=== PATIENT | female | born 1965 | race Caucasian/White ===

== ENCOUNTER 2016-09-01 08:04 | Day surgery (SDC) | payer OTHER ==
[2016-08-29 15:55] VITALS: BMI 30.9
[~2016-09-01 08:04] MED LIST: LACTATED RINGERS 1,000 ML IV SCH; LIDOCAINE 1% 20 ML VIAL (10MG/ML) FOR IV START INTRADERMA PRN
[2016-09-01 09:57] VITALS: TEMP 98.6
--- NOTE | 2016-09-01 10:19 | P.GSHP ---
History of Present Illness H&P Date: 09/01/16 Chief Complaint: GI bleed, GERD This a 51-year-old female who presents today for EGD and colonoscopy. She's had issues with GI bleed and GERD. - Constitutional Constitutional: Reports as per HPI Past Medical History Past Medical History: GERD/Reflux, Osteoarthritis (OA) Additional Past Medical History / Comment(s): ARTHRITIS PAIN IN KNEES, HIPS AND SHOULDER., STATES HX OF DIARRHEA AND CONSTIPATION, HEMORRHOIDS. , STATES SHE THREW UP BLOOD A COUPLE WEEKS AGO. History of Any Multi-Drug Resistant Organisms: None Reported Past Surgical History: Appendectomy, Cholecystectomy, Hysterectomy, Joint Replacement, Orthopedic Surgery Additional Past Surgical History / Comment(s): TOTAL LT SHOULDER. Shoulders bilat, Knees bilat., ANKLE SURGERY, EGD , COLONOSCOPY. Past Anesthesia/Blood Transfusion Reactions: No Reported Reaction, Motion Sickness Past Psychological History: Anxiety, Depression Smoking Status: Never smoker Past Alcohol Use History: None Reported Past Drug Use History: None Reported - Past Family History Mother Family Medical History: No Reported History Medications and Allergies Home Medications Medication Instructions Recorded Confirmed Type Cetirizine HCl [Zyrtec] 10 mg PO QAM 04/12/14 09/01/16 History Escitalopram [Lexapro] 20 mg PO QAM 04/12/14 08/29/16 History Ferrous Sulfate [Feosol] 325 mg PO DAILY 02/03/15 08/29/16 History Omeprazole [PriLOSEC] 20 mg PO BID 02/03/15 09/01/16 History Acetaminophen Tab [Tylenol Tab] 325 mg PO DIRECTED PRN 09/01/15 08/29/16 History Ibuprofen [Motrin] 800 mg PO Q8HR PRN 09/01/15 08/29/16 History diphenhydrAMINE [Benadryl] 25 mg PO HS 09/01/15 08/29/16 History Allergy Eye Gtts 1 drop BOTH EYES DIRECTED PRN 08/29/16 09/01/16 History Cyclobenzaprine [Flexeril] 10 mg PO DIRECTED PRN 08/29/16 08/29/16 History Allergies Allergy/AdvReac Type Severity Reaction Status Date / Time codeine Allergy Swelling Verified 08/29/16 15:25 hydrocodone Allergy Swelling Verified 08/29/16 15:25 morphine Allergy Swelling Verified 08/29/16 15:25 Penicillins Allergy Swelling Verified 08/29/16 15:25 Surgical - Exam Vital Signs Temp Pulse Resp BP Pulse Ox 98.6 F 85 16 120/64 92 L 09/01/16 09:56 09/01/16 09:56 09/01/16 09:56 09/01/16 09:56 09/01/16 09:56 - General well developed, well nourished, no distress - Eyes PERRL - ENT normal pinna - Neck no masses - Respiratory normal expansion - Cardiovascular Rhythm: regular - Abdomen Abdomen: soft, non tender Assessment and Plan Plan: GI bleed, GERD. We'll perform EGD and colonoscopy
[2016-09-01] MEDS ORDERED: PROPOFOL 10 MG/ML 20 ML VIAL IV ONE (10:20)
--- NOTE | 2016-09-01 10:43 | P.OP ---
Date of Procedure: 09/01/16 Preoperative Diagnosis: GI bleed GERD Postoperative Diagnosis: Antral gastritis Hiatal hernia Esophagitis Mild diverticular changes Procedure(s) Performed: EGD Colonoscopy Anesthesia: MAC Surgeon: Duong Kumari Pathology: other (Antral, esophagus) Condition: stable Disposition: PACU Description of Procedure: Patient's placed on the endoscopy table in the lateral position. She received IV sedation. The gastroscope some placed oropharynx passed in the esophagus and stomach. The scope was then placed through the pylorus. First and second portion of duodenum appeared normal. Scope was then brought back and the antrum and this appeared mildly inflamed. A biopsy was performed. The scope was unretroflexed and remainder of the stomach appeared normal. The GE junction was at 40 cm. The patient had a moderate size hiatal hernia. The GE junction was examined in the distal esophagus was biopsied. There was evidence of inflammation distal esophagus. The proximal esophagus. Normal. Scope was withdrawn for patient. Next digital rectal exam was performed which revealed no abnormalities. The flexible colonoscope was then placed patient anus passed throughout the entire colon. The ileocecal valve was visualized. Scope was withdrawn remainder the ascending colon, transverse colon and descending colon appeared normal. In the sigmoid colon there a few scattered diverticula. Scope was then brought back the rectum and this appeared normal. Scope was withdrawn for patient.
[2016-09-01 11:17] VITALS: BP 110/60; PULSE 78; RESP 20
== END 2016-09-01 11:35 | disposition home or self-care (01) ==
LOC: ORWHC2ENDO 08:04
PROVIDERS: ATTEND Surgery
DX: K21.0 Gastro-esophageal reflux disease with esophagitis (principal); K29.50 Unspecified chronic gastritis without bleeding; K44.9 Diaphragmatic hernia without obstruction or gangrene; K57.30 Diverticulosis of large intestine without perforation or abscess without bleeding; M17.0 Bilateral primary osteoarthritis of knee; M16.0 Bilateral primary osteoarthritis of hip; M19.019 Primary osteoarthritis, unspecified shoulder; F41.9 Anxiety disorder, unspecified; F32.9 Major depressive disorder, single episode, unspecified; Z88.0 Allergy status to penicillin; Z88.5 Allergy status to narcotic agent; Z79.1 Long term (current) use of non-steroidal anti-inflammatories (NSAID); Z79.899 Other long term (current) drug therapy; Z90.49 Acquired absence of other specified parts of digestive tract; Z90.710 Acquired absence of both cervix and uterus; Z96.60 Presence of unspecified orthopedic joint implant
CPT/HCPCS: 88305; 88342; 45378; 43239; J2704; 99153

== ENCOUNTER → 2016-10-03 | Outpatient (CLI) | payer OTHER ==
--- NOTE | 2016-10-03 13:16 | XR ---
EXAMINATION TYPE: XR chest 2V DATE OF EXAM: 10/03/2016 12:06 PM COMPARISON: Prior chest x-ray 15 Dec 2014 HISTORY: Acute bronchitis, cough and congestion TECHNIQUE: Frontal and lateral views of the chest are obtained. FINDINGS: Post arthroplasty in the left shoulder, postop change in the right shoulder again noted. P atient is rotated. No airspace disease, pneumothorax, or pleural effusion. Cardiomediastinal silhouet te, pulmonary vascularity and anton are stable. Surgical clips in the right upper quadrant. IMPRESSION: No acute cardiopulmonary process.
== END ==
LOC: RADXRMAIN 11:39
PROVIDERS: ATTEND Family Medicine
DX: J20.9 Acute bronchitis, unspecified (principal)
CPT/HCPCS: 71020

== ENCOUNTER → 2017-08-11 | Outpatient (CLI) | payer OTHER ==
--- NOTE | 2017-08-14 11:49 | MM ---
Reason for exam: screening (asymptomatic). Last mammogram was performed 3 years and 8 months ago. History: Patient is postmenopausal and had first child at age 36. Physical Findings: A clinical breast exam by your physician is recommended on an annual basis and results should be correlated with mammographic findings. MG Screening Mammo w CAD Bilateral CC and MLO view(s) were taken. XCCL view(s) were taken of the right breast. Prior study comparison: December 03, 2013, bilateral digital screening mammo w/CAD. October 09, 2012, bilateral digital screening mammo w/CAD. The breast tissue is heterogeneously dense. This may lower the sensitivity of mammography. No suspicious abnormality. No significant changes when compared with prior studies. ASSESSMENT: Negative, BI-RAD 1 RECOMMENDATION: Routine screening mammogram of both breasts in 1 year.
== END | disposition home or self-care (01) ==
LOC: RADMAMWWP 07:31
PROVIDERS: ATTEND Family Medicine
DX: Z12.31 Encounter for screening mammogram for malignant neoplasm of breast (principal)
CPT/HCPCS: 77067

== ENCOUNTER 2018-07-07 21:30 | Emergency (ER) | payer OTHER ==
[2018-07-07 21:43] VITALS: BP 119/69; PULSE 70; RESP 16; TEMP 97.7
--- NOTE | 2018-07-07 22:35 | ED ---
General Adult HPI - General Chief complaint: Burn/Smoke Inhalation Stated complaint: left arm burn x 2 days ago Time Seen by Provider: 07/07/18 21:45 Source: patient Mode of arrival: ambulatory Limitations: no limitations - History of Present Illness Initial comments: 53-year-old female with a past medical history of GERD and osteoarthritis presents to the emergency department for a chief complaint of burn to the left dorsal forearm at 2 days. Patient states she was reaching inside of the oven when she taps arm against the edge of the oven and burned her skin. Patient states it has not been bothering her much but today it did start draining a year yellow drainage so she became concerned for infection. She denies fevers or chills. She denies any significant pain. She denies any other injuries or complaints. - Related Data Home Medications Medication Instructions Recorded Confirmed Cetirizine HCl [Zyrtec] 10 mg PO QAM 04/12/14 09/01/16 Escitalopram [Lexapro] 20 mg PO QAM 04/12/14 08/29/16 Ferrous Sulfate [Feosol] 325 mg PO DAILY 02/03/15 08/29/16 Omeprazole [PriLOSEC] 20 mg PO BID 02/03/15 09/01/16 Acetaminophen Tab [Tylenol Tab] 325 mg PO DIRECTED PRN 09/01/15 08/29/16 Ibuprofen [Motrin] 800 mg PO Q8HR PRN 09/01/15 08/29/16 diphenhydrAMINE [Benadryl] 25 mg PO HS 09/01/15 08/29/16 Allergy Eye Gtts 1 drop BOTH EYES DIRECTED PRN 08/29/16 09/01/16 Cyclobenzaprine [Flexeril] 10 mg PO DIRECTED PRN 08/29/16 08/29/16 Previous Rx's Medication Instructions Recorded Ibuprofen [Motrin] 600 mg PO Q6HR PRN #40 day 06/21/18 Allergies Allergy/AdvReac Type Severity Reaction Status Date / Time codeine Allergy Swelling Verified 07/07/18 21:43 hydrocodone Allergy Swelling Verified 07/07/18 21:43 morphine Allergy Swelling Verified 07/07/18 21:43 Penicillins Allergy Swelling Verified 07/07/18 21:43 Review of Systems ROS Statement: Those systems with pertinent positive or pertinent negative responses have been documented in the HPI. ROS Other: All systems not noted in ROS Statement are negative. Past Medical History Past Medical History: GERD/Reflux, Osteoarthritis (OA) Additional Past Medical History / Comment(s): ARTHRITIS PAIN IN KNEES, HIPS AND SHOULDER. History of Any Multi-Drug Resistant Organisms: None Reported Past Surgical History: Appendectomy, Cholecystectomy, Hysterectomy, Joint Replacement, Orthopedic Surgery Additional Past Surgical History / Comment(s): TOTAL LT SHOULDER. Shoulders bilat, Knees bilat., ANKLE SURGERY, EGD , COLONOSCOPY. Past Anesthesia/Blood Transfusion Reactions: No Reported Reaction, Motion Sickness Past Psychological History: Anxiety, Depression Smoking Status: Never smoker Past Alcohol Use History: None Reported Past Drug Use History: None Reported - Past Family History Mother Family Medical History: No Reported History General Exam Limitations: no limitations General appearance: alert, in no apparent distress Head exam: Present: atraumatic, normocephalic, normal inspection Eye exam: Present: normal appearance, PERRL, EOMI. Absent: scleral icterus, conjunctival injection, periorbital swelling ENT exam: Present: normal exam, mucous membranes moist Neck exam: Present: normal inspection, full ROM. Absent: tenderness, meningismus, lymphadenopathy Respiratory exam: Present: normal lung sounds bilaterally. Absent: respiratory distress, wheezes, rales, rhonchi, stridor Cardiovascular Exam: Present: regular rate, normal rhythm, normal heart sounds. Absent: systolic murmur, diastolic murmur, rubs, gallop, clicks Extremities exam: Present: full ROM (Full range of motion of the left upper extremity including the left hand), tenderness (Minor tenderness to the burn site), normal capillary refill (Capillary refill less than 2 seconds and radial pulse 2+ in the left upper extremity), other (The patient intact in the left upper extremity. There is a 3 cm x 0.5 cm superficial burn noted of the left dorsal mid forearm. No sore running cellulitic infection. Burn is superficial and has affected the dermis.) Course Vital Signs 07/07/18 21:39 Temperature 97.7 F Pulse Rate 70 Respiratory 16 Rate Blood Pressure 119/69 O2 Sat by Pulse 100 Oximetry Medical Decision Making - Medical Decision Making 53-year-old female with a superficial burn to the left dorsal forearm. Patient states it is draining clear fluid. Patient is concerned for infection. She has been applying antibiotic ointment. No cellulitic infection on exam. The burn is about 3 cm x 0.5 cm in size. At this time patient was given bacitracin to continue to apply at least 3 times daily. Tetanus is up-to-date. She will monitor for any signs of spreading infection and return if these occur. She will follow up with primary care on Monday for a recheck. Patient agrees with this. Disposition Clinical Impression: Superficial burn Disposition: HOME SELF-CARE Condition: Good Instructions: Superficial Burn (ED) Additional Instructions: Please apply bacitracin to the area 3 times daily. Please follow up with primary care in 1-2 days. Return to the emergency department if you have any worsening symptoms. Is patient prescribed a controlled substance at d/c from ED?: No Referrals: Brandt Moore DO [Primary Care Provider] - 1-2 days Time of Disposition: 22:30
== END 2018-07-07 22:44 | disposition home or self-care (01) ==
LOC: EC 21:30
DX: T22.212A Burn of second degree of left forearm, initial encounter (principal); T31.0 Burns involving less than 10% of body surface; K21.9 Gastro-esophageal reflux disease without esophagitis; M17.0 Bilateral primary osteoarthritis of knee; M16.0 Bilateral primary osteoarthritis of hip; M19.012 Primary osteoarthritis, left shoulder; M19.011 Primary osteoarthritis, right shoulder; F41.9 Anxiety disorder, unspecified; F32.9 Major depressive disorder, single episode, unspecified; Z96.653 Presence of artificial knee joint, bilateral; Z96.611 Presence of right artificial shoulder joint; Z96.612 Presence of left artificial shoulder joint; Z79.899 Other long term (current) drug therapy; Z88.5 Allergy status to narcotic agent; Z88.0 Allergy status to penicillin; X15.8XXA Contact with other hot household appliances, initial encounter; Y92.009 Unspecified place in unspecified non-institutional (private) residence as the place of occurrence of the external cause
CPT/HCPCS: 99283

== ENCOUNTER 2018-08-24 00:24 | Emergency (ER) | payer OTHER ==
[2018-08-24 00:32] VITALS: BP 111/72; PULSE 66; RESP 17; TEMP 96.9
[2018-08-24] MEDS ORDERED: ACETAMINOPHEN TAB 500 MG TAB PO STA (00:50)
[2018-08-24] MEDS ORDERED: DIPH,PERTUS(ACELL)TETVAC-LF 0.5 ML VIAL IM ONE (00:50)
[2018-08-24] MEDS ORDERED: DOXYCYCLINE 100 MG CAP PO STA (00:52)
--- NOTE | 2018-08-24 00:55 | ED ---
Animal Bite HPI - General Chief Complaint: Animal Bite Stated Complaint: Cat Bite Time Seen by Provider: 08/24/18 00:37 Source: patient Mode of arrival: ambulatory Limitations: no limitations - History of Present Illness Initial Comments: 53-year-old female patient presents to the emergency department today for evaluation of Right. Patient states around 2230 this evening she was attempting to brush her Give it medication when it became agitated and bit her on the left thumb and the right wrist. Patient states that she did wash the wounds with antibacterial soap and water. Patient states she did take ibuprofen for pain control. Patient is reporting only mild pain at this time. Denies any difficulty with range of motion to the hand or wrist. Denies any fevers or chills. She denies any other injuries. She is unsure when her last tetanus vaccine was given. Patient denies any headache, neck pain, back pain, chest pain, shortness of breath, dizziness, weakness, abdominal pain, nausea, vomiting, or difficulties with bowel movements or urination. - Related Data Home Medications Medication Instructions Recorded Confirmed Cetirizine HCl [Zyrtec] 10 mg PO QAM 04/12/14 09/01/16 Escitalopram [Lexapro] 20 mg PO QAM 04/12/14 08/29/16 Ferrous Sulfate [Feosol] 325 mg PO DAILY 02/03/15 08/29/16 Omeprazole [PriLOSEC] 20 mg PO BID 02/03/15 09/01/16 Acetaminophen Tab [Tylenol Tab] 325 mg PO DIRECTED PRN 09/01/15 08/29/16 Ibuprofen [Motrin] 800 mg PO Q8HR PRN 09/01/15 08/29/16 diphenhydrAMINE [Benadryl] 25 mg PO HS 09/01/15 08/29/16 Allergy Eye Gtts 1 drop BOTH EYES DIRECTED PRN 08/29/16 09/01/16 Cyclobenzaprine [Flexeril] 10 mg PO DIRECTED PRN 08/29/16 08/29/16 Previous Rx's Medication Instructions Recorded Ibuprofen [Motrin] 600 mg PO Q6HR PRN #40 day 06/21/18 Doxycycline Hyclate 100 mg PO BID 7 Days #14 tab 08/24/18 Allergies Allergy/AdvReac Type Severity Reaction Status Date / Time codeine Allergy Swelling Verified 08/24/18 00:32 hydrocodone Allergy Swelling Verified 08/24/18 00:32 morphine Allergy Swelling Verified 08/24/18 00:32 Penicillins Allergy Swelling Verified 08/24/18 00:32 Review of Systems ROS Statement: Those systems with pertinent positive or pertinent negative responses have been documented in the HPI. ROS Other: All systems not noted in ROS Statement are negative. Past Medical History Past Medical History: GERD/Reflux, Osteoarthritis (OA) Additional Past Medical History / Comment(s): ARTHRITIS PAIN IN KNEES, HIPS AND SHOULDER. History of Any Multi-Drug Resistant Organisms: None Reported Past Surgical History: Appendectomy, Cholecystectomy, Hysterectomy, Joint Replacement, Orthopedic Surgery Additional Past Surgical History / Comment(s): TOTAL LT SHOULDER. Shoulders bilat, Knees bilat., ANKLE SURGERY, EGD , COLONOSCOPY. Past Anesthesia/Blood Transfusion Reactions: No Reported Reaction, Motion Sickness Past Psychological History: Anxiety, Depression Smoking Status: Never smoker Past Alcohol Use History: None Reported Past Drug Use History: None Reported - Past Family History Mother Family Medical History: No Reported History General Exam Limitations: no limitations General appearance: alert, in no apparent distress, other (This is a well- developed, well-nourished adult female patient in no acute distress. Vital signs upon presentation are temperature 96.9F, pulse 66, respirations 17, blood pressure 111/72, pulse ox 98% on room air.) Respiratory exam: Present: normal lung sounds bilaterally. Absent: respiratory distress, wheezes, rales, rhonchi, stridor Cardiovascular Exam: Present: regular rate, normal rhythm, normal heart sounds. Absent: systolic murmur, diastolic murmur, rubs, gallop, clicks Extremities exam: Present: full ROM (Bilateral hands and wrists exhibit full range of motion without pain or limitation.), normal capillary refill, other ( Patient has puncture wound noted to the left thenar eminence. There is a small superficial laceration to the right wrist. There is no surrounding erythema or swelling. No tenderness to the area. No evidence of foreign body. Skin is otherwise pink, warm, and dry. Cap refills less than 3 seconds. Radial pulses 2+ and equal bilaterally.). Absent: normal inspection, tenderness, pedal edema , joint swelling, calf tenderness Neurological exam: Present: alert, oriented X3, CN II-XII intact Psychiatric exam: Present: normal affect, normal mood Skin exam: Present: warm, dry, intact, normal color. Absent: rash Course Vital Signs 08/24/18 00:28 Temperature 96.9 F L Pulse Rate 66 Respiratory 17 Rate Blood Pressure 111/72 O2 Sat by Pulse 98 Oximetry Medical Decision Making - Medical Decision Making 53-year-old female patient presents to the emergency department today for evaluation after sustaining a Bite to her left thumb and right wrist. Physical examination did reveal small puncture wound to the left thenar eminence and a small superficial laceration to the right wrist. There is no evidence of cellulitis or foreign body. Patient was updated on tetanus vaccine. She is started on doxycycline. She is instructed to follow-up with her primary care physician for recheck in 1-2 days. Did educate regarding signs or symptoms of worsening infection. Return parameters discussed in detail. She verbalizes understanding and agrees with this plan. Disposition Clinical Impression: Cat bite involving extremity Disposition: HOME SELF-CARE Instructions: Animal Bite (ED) Additional Instructions: Complete antibiotic prescription in full. Take Tylenol and Motrin for pain control. Follow-up with your primary care physician for recheck in 1-2 days. Return immediately for any increase in swelling, redness, fever, or chills. Return immediately for any other new, worsening, or concerning symptoms. Prescriptions: Doxycycline Hyclate 100 mg PO BID 7 Days #14 tab Is patient prescribed a controlled substance at d/c from ED?: No Referrals: Brandt Moore DO [Primary Care Provider] - 1-2 days Time of Disposition: 00:55
== END 2018-08-24 01:11 | disposition home or self-care (01) ==
LOC: EC 00:24
DX: S61.032A Puncture wound without foreign body of left thumb without damage to nail, initial encounter (principal); S61.511A Laceration without foreign body of right wrist, initial encounter; K21.9 Gastro-esophageal reflux disease without esophagitis; M19.90 Unspecified osteoarthritis, unspecified site; F32.9 Major depressive disorder, single episode, unspecified; F41.9 Anxiety disorder, unspecified; Z23 Encounter for immunization; Z79.899 Other long term (current) drug therapy; Z88.0 Allergy status to penicillin; Z88.5 Allergy status to narcotic agent; Z96.653 Presence of artificial knee joint, bilateral; Z96.611 Presence of right artificial shoulder joint; Z96.612 Presence of left artificial shoulder joint; W55.01XA Bitten by cat, initial encounter
CPT/HCPCS: 90471; 90715; 99283

== ENCOUNTER → 2019-03-20 | Outpatient (CLI) | payer OTHER ==
--- NOTE | 2019-03-20 15:24 | XR ---
EXAMINATION TYPE: XR clavicle LT DATE OF EXAM: 03/20/2019 COMPARISON: NONE HISTORY: Pain TECHNIQUE: 2 views submitted FINDINGS: Postsurgical change left shoulder. Clavicle appears intact. IMPRESSION: No acute fracture.
--- NOTE | 2019-03-20 15:25 | XR ---
EXAMINATION TYPE: XR knee complete LT DATE OF EXAM: 03/20/2019 COMPARISON: NONE HISTORY: Pain TECHNIQUE: Four views are submitted. FINDINGS: Mild narrowing of the medial compartment of the knee joint. Mild diffuse osteopenia. There is a small suprapatellar bursal fluid collection. No erosive changes.. Osseous structures are intact. No acut e fracture seen. IMPRESSION: 1. No acute fracture or dislocation. Small suprapatellar bursal fluid collection.
--- NOTE | 2019-03-20 15:27 | XR ---
EXAMINATION TYPE: XR shoulder complete LT DATE OF EXAM: 03/20/2019 COMPARISON: NONE HISTORY: Pain TECHNIQUE: Three views are submitted. FINDINGS: The osseous structures are intact. There is no acute fracture or dislocation. Widening of the AC yazmin nt may be postsurgical or related to chronic reabsorption. Postsurgical changes noted. . IMPRESSION: 1. No acute process. 2. Postsurgical changes.
--- NOTE | 2019-03-20 15:28 | XR ---
EXAMINATION TYPE: XR hand complete RT DATE OF EXAM: 03/20/2019 COMPARISON: NONE HISTORY: Pain TECHNIQUE: Three views are submitted. FINDINGS: The osseous structures are intact. The joint spaces are preserved and there is no acute fracture or dislocation. Mild diffuse osteopenia. Chronic appearing deformity base fifth metacarpal. IMPRESSION: 1. No definite acute fracture or dislocation if symptoms persist, follow-up study in 7 to 10 days wo uld be suggested
--- NOTE | 2019-03-20 15:29 | XR ---
EXAMINATION TYPE: XR wrist complete RT DATE OF EXAM: 03/20/2019 COMPARISON: 02/24/2014 HISTORY: Pain TECHNIQUE: Four views submitted. FINDINGS: The osseous structures are intact. The joint spaces are preserved and there is no acute fracture or dislocation. Chronic appearing deformity base fifth metacarpal. Unchanged from prior exam. IMPRESSION: 1. No definite acute fracture or dislocation if symptoms persist, follow-up study in 7 to 10 days wo uld be suggested
== END | disposition home or self-care (01) ==
LOC: RADXRMAIN 14:36
PROVIDERS: ATTEND Family Medicine
DX: M25.512 Pain in left shoulder (principal); M25.562 Pain in left knee; M25.531 Pain in right wrist; M79.641 Pain in right hand

== ENCOUNTER 2019-05-08 19:19 | Emergency (ER) | payer OTHER ==
[2019-05-08 19:34] VITALS: BP 110/69; PULSE 76; RESP 18; TEMP 97.6
[2019-05-08] MEDS ORDERED: SODIUM CHLORIDE 0.9% 1,000 ML IV STA (20:27)
[2019-05-08] MEDS ORDERED: ONDANSETRON 4 MG/2 ML VIAL IVP STA (20:27)
--- NOTE | 2019-05-08 20:33 | ED ---
Abdominal Pain HPI - General Chief Complaint: Abdominal Pain Stated Complaint: abdominal pain/headaches Time Seen by Provider: 05/08/19 19:49 Source: patient Mode of arrival: ambulatory Limitations: no limitations - History of Present Illness Initial Comments: Patient is a 53-year-old female presenting to the emergency department with chief complaint of abdominal pain. Patient reports she developed right lower quadrant abdominal pain suddenly yesterday. Patient reports the pain is sharp, and comes and goes. Patient rates pain a 6-7. Patient states the pain is not related to oral intake. Patient reports nausea with one episode of vomiting but no diarrhea or constipation. Patient does report a sudden onset of fevers and chills yesterday prior to her episode of emesis. Patient does report increased urgency frequency or dysuria. Patient denies hematuria, hematochezia or melena. - Related Data Home Medications Medication Instructions Recorded Confirmed Escitalopram [Lexapro] 20 mg PO QAM 04/12/14 05/08/19 Omeprazole [PriLOSEC] 20 mg PO BID 02/03/15 05/08/19 diphenhydrAMINE [Benadryl] 25 mg PO HS 09/01/15 05/08/19 Loratadine [Claritin] 10 mg PO DAILY 05/08/19 05/08/19 Multivitamins, Thera [Multivitamin 1 tab PO DAILY 05/08/19 05/08/19 (formulary)] Previous Rx's Medication Instructions Recorded Cephalexin [Keflex] 500 mg PO Q6HR 3 Days #12 cap 05/08/19 Allergies Allergy/AdvReac Type Severity Reaction Status Date / Time amoxicillin Allergy Swelling Verified 05/08/19 20:46 clonazepam [From Klonopin] Allergy Swelling Verified 05/08/19 20:46 codeine Allergy Rash/Hives Verified 05/08/19 20:46 hydrocodone Allergy Anaphylaxis Verified 05/08/19 20:46 imipramine Allergy Rash/Hives Verified 05/08/19 20:46 morphine Allergy Swelling Verified 05/08/19 20:46 ondansetron [From Zofran] Allergy Itching Verified 05/08/19 20:46 Penicillins Allergy Anaphylaxis Verified 05/08/19 20:46 sulfamethoxazole Allergy Swelling Verified 05/08/19 20:46 [From Bactrim] tramadol Allergy Itching Verified 10/02/19 20:46 trimethoprim [From Bactrim] Allergy Swelling Verified 05/08/19 20:46 Review of Systems ROS Statement: Those systems with pertinent positive or pertinent negative responses have been documented in the HPI. ROS Other: All systems not noted in ROS Statement are negative. Past Medical History Past Medical History: GERD/Reflux, Osteoarthritis (OA) Additional Past Medical History / Comment(s): ARTHRITIS PAIN IN KNEES, HIPS AND SHOULDER. History of Any Multi-Drug Resistant Organisms: None Reported Past Surgical History: Appendectomy, Cholecystectomy, Hysterectomy, Joint Replacement, Orthopedic Surgery Additional Past Surgical History / Comment(s): TOTAL LT SHOULDER. Shoulders bilat, Knees bilat., ANKLE SURGERY, EGD , COLONOSCOPY. Past Anesthesia/Blood Transfusion Reactions: No Reported Reaction, Motion Sickness Past Psychological History: Anxiety, Depression Smoking Status: Never smoker Past Alcohol Use History: None Reported Past Drug Use History: None Reported - Past Family History Mother Family Medical History: No Reported History General Exam Limitations: no limitations General appearance: alert, in no apparent distress Head exam: Present: atraumatic, normocephalic, normal inspection Eye exam: Present: normal appearance Pupils: Present: normal accommodation ENT exam: Present: normal exam, mucous membranes moist, normal external ear exam Neck exam: Present: normal inspection, full ROM Respiratory exam: Present: normal lung sounds bilaterally Cardiovascular Exam: Present: regular rate, normal rhythm, normal heart sounds GI/Abdominal exam: Present: soft, tenderness (Right lower quadrant. McBurney point tenderness. Negative Rovsing, negative obturator, negative psoas. Mild right suprapubic tenderness), normal bowel sounds. Absent: distended, guarding, rebound, mass Extremities exam: Present: normal inspection, full ROM, normal capillary refill Back exam: Present: normal inspection, full ROM. Absent: tenderness Neurological exam: Present: alert, oriented X3 Psychiatric exam: Present: normal affect, normal mood Skin exam: Present: warm, intact, normal color Course Vital Signs 05/08/19 19:30 Temperature 97.6 F Pulse Rate 76 Respiratory 18 Rate Blood Pressure 110/69 O2 Sat by Pulse 100 Oximetry Medical Decision Making - Medical Decision Making Patient is a 53-year-old female presenting to the emergency department with chief complaint of abdominal pain. Patient has had a sudden onset of right lower quadrant abdominal pain that does not radiate anywhere. Patient has had nausea with one episode of vomiting. Patient is also having urinary symptoms. Labs are unremarkable. UA is showing elevated white blood cells and leukocyte esterase. Considering the patient is symptomatically for UTI, I'm going to treat accordingly. CT imaging is not warranted at this time. Patient does not have a gallbladder, appendix or uterus. Patient also does have mild suprapubic tenderness on physical examination. Patient will be treated with Keflex and discharged. Strict return parameters were thoroughly discussed with patient was understanding and agreeable. Case discussed physician. - Lab Data Result diagrams: 05/08/19 21:03 05/08/19 21:03 Lab Results 05/08/19 05/08/19 05/08/19 Range/Units 20:50 21:03 21:03 WBC 7.1 (3.8-10.6) k/uL RBC 4.25 (3.80-5.40) m/uL Hgb 12.9 (11.4-16.0) gm/dL Hct 40.0 (34.0-46.0) % MCV 94.2 (80.0-100.0) fL MCH 30.4 (25.0-35.0) pg MCHC 32.3 (31.0-37.0) g/dL RDW 13.3 (11.5-15.5) % Plt Count 213 (150-450) k/uL Neutrophils % 51 % Lymphocytes % 37 % Monocytes % 7 % Eosinophils % 1 % Basophils % 1 % Neutrophils # 3.6 (1.3-7.7) k/uL Lymphocytes # 2.6 (1.0-4.8) k/uL Monocytes # 0.5 (0-1.0) k/uL Eosinophils # 0.1 (0-0.7) k/uL Basophils # 0.1 (0-0.2) k/uL Sodium 138 (137-145) mmol/L Potassium 4.0 (3.5-5.1) mmol/L Chloride 101 (98-107) mmol/L Carbon Dioxide 30 (22-30) mmol/L Anion Gap 7 mmol/L BUN 11 (7-17) mg/dL Creatinine 0.64 (0.52-1.04) mg/dL Est GFR (CKD-EPI)AfAm >90 (>60 ml/min/1.73 sqM) Est GFR (CKD-EPI)NonAf >90 (>60 ml/min/1.73 sqM) Glucose 99 (74-99) mg/dL Calcium 9.3 (8.4-10.2) mg/dL Total Bilirubin 0.2 (0.2-1.3) mg/dL AST 28 (14-36) U/L ALT 22 (9-52) U/L Alkaline Phosphatase 71 (38-126) U/L Total Protein 7.2 (6.3-8.2) g/dL Albumin 4.2 (3.5-5.0) g/dL Amylase 49 (30-110) U/L Lipase 89 (23-300) U/L Urine Color Light Yellow Urine Appearance Clear (Clear) Urine pH 7.0 (5.0-8.0) Ur Specific Venus 1.006 (1.001-1.035) Urine Protein Negative (Negative) Urine Glucose (UA) Negative (Negative) Urine Ketones Negative (Negative) Urine Blood Negative (Negative) Urine Nitrite Negative (Negative) Urine Bilirubin Negative (Negative) Urine Urobilinogen <2.0 (<2.0) mg/dL Ur Leukocyte Esterase Large H (Negative) Urine RBC 2 (0-5) /hpf Urine WBC 48 H (0-5) /hpf Ur Squamous Epith Cells 2 (0-4) /hpf Amorphous Sediment Rare H (None) /hpf Urine Bacteria Rare H (None) /hpf Disposition Clinical Impression: Abdominal pain Disposition: HOME SELF-CARE Condition: Stable Instructions (If sedation given, give patient instructions): Abdominal Pain (ED) Additional Instructions: Please see prescribe medication as directed. Please return to emergency department if symptoms worsen. Prescriptions: Cephalexin [Keflex] 500 mg PO Q6HR 3 Days #12 cap Is patient prescribed a controlled substance at d/c from ED?: No Referrals: Brandt Moore DO [Primary Care Provider] - 1-2 days Time of Disposition: 21:57
[2019-05-08 21:17] LABS: Amorphous Sediment,Urine Rare /hpf; Appearance,Urine Clear (Clear); Bacteria,Urine Rare /hpf; Bilirubin,Urine Negative (Negative); Blood,Urine Negative (Negative); Color,Urine Light Yellow; Glucose,Urine (UA) Negative (Negative); Ketones,Urine Negative (Negative); Leukocyte Esterase,Urine Large (Negative); Nitrite,Urine Negative (Negative); Protein,Urine Negative (Negative); RBC,Urine 2 /hpf (0-5); Specific Gravity,Urine 1.006 (1.001-1.035); Squamous Epithelial Cell,Urine 2 /hpf (0-4); Urobilinogen,Urine <2.0 mg/dL (<2.0); WBC,Urine 48 /hpf (0-5)
[2019-05-08 21:18] LABS: Basophils # (A) 0.1 k/uL (0-0.2); Basophils % (A) 1 %; Eosinophils # (A) 0.1 k/uL (0-0.7); Eosinophils % (A) 1 %; HGB 12.9 gm/dL (11.4-16.0); Lymphocytes # (A) 2.6 k/uL (1.0-4.8); Lymphocytes % (A) 37 %; MCH 30.4 pg (25.0-35.0); MCHC 32.3 g/dL (31.0-37.0); MCV 94.2 fL (80.0-100.0); Mean Platelet Volume 6.6; Monocytes # (A) 0.5 k/uL (0-1.0); Monocytes % (A) 7 %; Neutrophils # (A) 3.6 k/uL (1.3-7.7); Neutrophils % (A) 51 %; Platelet Count 213 k/uL (150-450); RBC 4.25 m/uL (3.80-5.40); RDW 13.3 % (11.5-15.5); WBC 7.1 k/uL (3.8-10.6)
[2019-05-08 21:25] LABS: ALT 22 U/L (9-52); AST 28 U/L (14-36); African American GFR (CKD) >90 (>60 ml/min/1.73 sqM); Albumin 4.2 g/dL (3.5-5.0); Alkaline Phosphatase 71 U/L (38-126); Amylase 49 U/L (30-110); Anion Gap 7 mmol/L; Blood Urea Nitrogen 11 mg/dL (7-17); Calcium 9.3 mg/dL (8.4-10.2); Carbon Dioxide 30 mmol/L (22-30); Chloride 101 mmol/L (98-107); Glucose 99 mg/dL (74-99); Sodium 138 mmol/L (137-145); Total Bilirubin 0.2 mg/dL (0.2-1.3); Total Protein 7.2 g/dL (6.3-8.2)
[2019-05-08] MEDS ORDERED: CEPHALEXIN 500MG STARTER PACK 4 CAP BTL PO STA (21:58)
== END 2019-05-08 22:50 | disposition home or self-care (01) ==
LOC: EC 19:19
DX: N39.0 Urinary tract infection, site not specified (principal); R11.2 Nausea with vomiting, unspecified; K21.9 Gastro-esophageal reflux disease without esophagitis; M17.0 Bilateral primary osteoarthritis of knee; M16.0 Bilateral primary osteoarthritis of hip; M19.011 Primary osteoarthritis, right shoulder; M19.012 Primary osteoarthritis, left shoulder; Z88.0 Allergy status to penicillin; Z88.2 Allergy status to sulfonamides; Z88.5 Allergy status to narcotic agent; Z88.8 Allergy status to other drugs, medicaments and biological substances; Z79.899 Other long term (current) drug therapy; Z90.49 Acquired absence of other specified parts of digestive tract; Z90.710 Acquired absence of both cervix and uterus; Z96.611 Presence of right artificial shoulder joint; Z96.612 Presence of left artificial shoulder joint; Z96.653 Presence of artificial knee joint, bilateral
CPT/HCPCS: 36415; 80053; 82150; 83690; 85025; 81001; 99284; 96374; 96361 ×2; J2405

== ENCOUNTER 2019-05-18 08:17 | Emergency (ER) | payer OTHER ==
[2019-05-18 08:24] VITALS: RESP 18; TEMP 98.5
--- NOTE | 2019-05-18 09:01 | ED ---
Fall HPI - General Chief Complaint: Fall Stated Complaint: Fall Time Seen by Provider: 05/18/19 08:41 Source: patient Mode of arrival: ambulatory - History of Present Illness Initial Comments: This is a 53-year-old female who states she tripped over her shoelaces this morning at about 6:30 AM she fell forward onto a wooden floor. She complains of bilateral shoulder pain especially on the right extending down to the right axilla. Medial left knee pain. She was able ambulate but states she does have pain in all these areas mentioned. No prior injury did the left knee or to either shoulder. No head neck or back pain no other modifying factors at this time she denies any wrist pain or hand pain. MD Complaint: fall - Related Data Home Medications Medication Instructions Recorded Confirmed Escitalopram [Lexapro] 20 mg PO DAILY 04/12/14 05/18/19 Omeprazole [PriLOSEC] 20 mg PO BID 02/03/15 05/18/19 diphenhydrAMINE [Benadryl] 25 mg PO HS 09/01/15 05/18/19 Loratadine [Claritin] 10 mg PO DAILY 05/08/19 05/18/19 Multivitamins, Thera [Multivitamin 1 tab PO DAILY 05/08/19 05/18/19 (formulary)] Previous Rx's Medication Instructions Recorded Ibuprofen [Motrin] 600 mg PO Q6HR PRN #20 tab 05/18/19 Allergies Allergy/AdvReac Type Severity Reaction Status Date / Time amoxicillin Allergy Swelling Verified 05/18/19 08:40 clonazepam [From Klonopin] Allergy Swelling Verified 05/18/19 08:40 codeine Allergy Rash/Hives Verified 05/18/19 08:40 hydrocodone Allergy Anaphylaxis Verified 05/18/19 08:40 imipramine Allergy Rash/Hives Verified 05/18/19 08:40 morphine Allergy Swelling Verified 05/18/19 08:40 ondansetron [From Zofran] Allergy Itching Verified 05/18/19 08:40 Penicillins Allergy Anaphylaxis Verified 05/18/19 08:40 sulfamethoxazole Allergy Swelling Verified 05/18/19 08:40 [From Bactrim] tramadol Allergy Itching Verified 05/18/19 08:40 trimethoprim [From Bactrim] Allergy Swelling Verified 05/18/19 08:40 Review of Systems ROS Statement: Those systems with pertinent positive or pertinent negative responses have been documented in the HPI. ROS Other: All systems not noted in ROS Statement are negative. Past Medical History Past Medical History: GERD/Reflux, Osteoarthritis (OA) Additional Past Medical History / Comment(s): ARTHRITIS PAIN IN KNEES, HIPS AND SHOULDER. History of Any Multi-Drug Resistant Organisms: None Reported Past Surgical History: Appendectomy, Cholecystectomy, Hysterectomy, Joint Replacement, Orthopedic Surgery Additional Past Surgical History / Comment(s): TOTAL LT SHOULDER. Shoulders bilat, Knees bilat., ANKLE SURGERY, EGD , COLONOSCOPY. Past Anesthesia/Blood Transfusion Reactions: No Reported Reaction, Motion Sickness Past Psychological History: Anxiety, Depression Smoking Status: Never smoker Past Alcohol Use History: None Reported Past Drug Use History: None Reported - Past Family History Mother Family Medical History: No Reported History General Exam - General Exam Comments Initial Comments: This is a well-developed well-nourished awake alert oriented 3 female who does demonstrate a Amigo Coma Scale of 15 Limitations: no limitations General appearance: alert, in no apparent distress Head exam: Present: atraumatic, normocephalic, normal inspection Eye exam: Present: normal appearance, PERRL, EOMI. Absent: scleral icterus, conjunctival injection, periorbital swelling ENT exam: Present: normal exam, mucous membranes moist Neck exam: Present: normal inspection, full ROM, other (No stridor JVD or bruits). Absent: tenderness, meningismus, lymphadenopathy Respiratory exam: Present: normal lung sounds bilaterally. Absent: respiratory distress, wheezes, rales, rhonchi, stridor Cardiovascular Exam: Present: regular rate, normal rhythm, normal heart sounds. Absent: systolic murmur, diastolic murmur, rubs, gallop, clicks GI/Abdominal exam: Present: soft, normal bowel sounds. Absent: distended, tenderness, guarding, rebound, rigid Extremities exam: Present: normal inspection, full ROM, tenderness, normal capillary refill, other (Tennis palpation over both anterior shoulders no definite step-off or crepitation there is some axillary tenderness palpation of the right distal no sensorimotor or vascular deficits are is tenderness palpation of the medial left knee with palpation patient does seem to be able extend and flex the knee however. No other injury noted.). Absent: pedal edema, joint swelling, calf tenderness Back exam: Present: normal inspection Neurological exam: Present: alert, oriented X3, CN II-XII intact Psychiatric exam: Present: normal affect, normal mood Skin exam: Present: warm, dry, intact, normal color. Absent: rash Course Vital Signs 05/18/19 08:19 Temperature 98.5 F Pulse Rate 82 Respiratory 18 Rate Blood Pressure 105/67 O2 Sat by Pulse 99 Oximetry Medical Decision Making - Medical Decision Making I did discuss findings with the patient she will be discharged she'll be placed on nonsteroidal anti-inflammatories - Radiology Data Radiology results: report reviewed (I did review the imaging and reports no evidence of acute findings. Old surgical changes noted), image reviewed Disposition Clinical Impression: Fall, Strain of shoulder, right, Strain of shoulder, left, Contusion of left knee Disposition: HOME SELF-CARE Condition: Good Instructions (If sedation given, give patient instructions): Fall Prevention (ED), Rotator Cuff Injury (ED), Contusion in Adults (ED) Additional Instructions: Medication prescription sent here preferred [facility] pharmacy Prescriptions: Ibuprofen [Motrin] 600 mg PO Q6HR PRN #20 tab PRN Reason: Pain Is patient prescribed a controlled substance at d/c from ED?: No Referrals: Brandt Moore DO [Primary Care Provider] - 1-2 days
--- NOTE | 2019-05-18 09:19 | XR ---
EXAMINATION TYPE: XR shoulder complete BILAT , 6 VIEWS DATE OF EXAM ORDERED: 05/18/2019 HISTORY: Fall with bilateral shoulder pain. COMPARISON: Previous left shoulder dated 03/20/2019. FINDINGS: A left shoulder arthroplasties in place. Prosthetic elements appear in good position. There is been a rotator cuff repair on the right. No fracture or dislocation is seen. There appears t o have been a previous Colin procedure on the right. IMPRESSION: 1. NO ACUTE OSSEOUS LESION. 2. POSTSURGICAL CHANGE ON THE LEFT AND RIGHT.
--- NOTE | 2019-05-18 09:21 | XR ---
EXAMINATION TYPE: XR knee complete LT , 3 VIEWS DATE OF EXAM ORDERED: 05/18/2019 HISTORY: Fall with pain. COMPARISON: Previous study dated 03/20/2019. FINDINGS: Joint spaces are reasonably well-maintained. There is mild peaking of intercondylar spines . There is some swelling in the suprapatellar region making exclusion of small joint effusion difficu lt. IMPRESSION: 1. NO ACUTE OSSEOUS LESION. 2. EARLIEST CHANGES OF OSTEOARTHRITIS. 3. I COULD NOT EXCLUDE A SMALL, JOINT EFFUSION.
[2019-05-18 09:56] VITALS: BP 107/64; PULSE 87
== END 2019-05-18 09:55 | disposition home or self-care (01) ==
LOC: EC 08:17
DX: S46.912A Strain of unspecified muscle, fascia and tendon at shoulder and upper arm level, left arm, initial encounter (principal); S46.911A Strain of unspecified muscle, fascia and tendon at shoulder and upper arm level, right arm, initial encounter; S80.02XA Contusion of left knee, initial encounter; M17.0 Bilateral primary osteoarthritis of knee; M16.0 Bilateral primary osteoarthritis of hip; M19.012 Primary osteoarthritis, left shoulder; K21.9 Gastro-esophageal reflux disease without esophagitis; F32.9 Major depressive disorder, single episode, unspecified; F41.9 Anxiety disorder, unspecified; Z88.0 Allergy status to penicillin; Z88.2 Allergy status to sulfonamides; Z88.5 Allergy status to narcotic agent; Z88.8 Allergy status to other drugs, medicaments and biological substances; Z79.899 Other long term (current) drug therapy; Z96.612 Presence of left artificial shoulder joint; Z96.653 Presence of artificial knee joint, bilateral; Z98.890 Other specified postprocedural states; W01.0XXA Fall on same level from slipping, tripping and stumbling without subsequent striking against object, initial encounter; Y92.69 Other specified industrial and construction area as the place of occurrence of the external cause
CPT/HCPCS: 99283

== ENCOUNTER → 2019-06-17 | Outpatient (CLI) | payer OTHER ==
--- NOTE | 2019-06-17 15:39 | XR ---
EXAMINATION TYPE: XR chest 2V DATE OF EXAM: 06/17/2019 COMPARISON: Prior chest x-ray 10/03/2016 HISTORY: Bronchitis TECHNIQUE: Frontal and lateral views of the chest are obtained. FINDINGS: There is no focal air space opacity, pleural effusion, or pneumothorax seen. There is some bronchial wall thickening. The cardiac silhouette size is within normal limits. The osseous struct ures are intact, patient is post left shoulder arthroplasty. IMPRESSION: Correlate for bronchitis, follow-up as indicated.
== END | disposition home or self-care (01) ==
LOC: RADXRMAIN 15:16
PROVIDERS: ATTEND Family Medicine
DX: J40 Bronchitis, not specified as acute or chronic (principal)
CPT/HCPCS: 71046

== ENCOUNTER 2019-07-08 19:35 | Emergency (ER) | payer OTHER ==
[2019-07-08 19:53] VITALS: BP 110/72; PULSE 66; RESP 18; TEMP 98.1
[2019-07-08] MEDS ORDERED: IBUPROFEN 600 MG STARTER PACK 4 TAB BTL PO STA (20:07)
--- NOTE | 2019-07-08 20:36 | XR ---
EXAMINATION TYPE: XR shoulder complete RT DATE OF EXAM: 07/08/2019 CLINICAL HISTORY: Right shoulder pain after injury TECHNIQUE: Three views of the right shoulder are obtained. COMPARISON: None. FINDINGS: There is no acute fracture/dislocation evident in the right shoulder. The acromioclavicul ar and glenohumeral joint spaces appear aligned. Mild acromioclavicular arthropathy and postsurgical changes of the rotator cuff. The visualized ribs are intact and unremarkable. IMPRESSION: There is no acute fracture or dislocation in the right shoulder.
--- NOTE | 2019-07-08 20:44 | ED ---
Upper Extremity HPI - General Chief Complaint: Extremity Injury, Upper Stated Complaint: Shoulder pain Time Seen by Provider: 07/08/19 20:00 Source: patient Mode of arrival: ambulatory - History of Present Illness Initial Comments: 54-year-old female patient presents to the emergency department today for evaluation of right shoulder pain. Patient states that she was lifting a p atient up into the chair when she felt a strain to her right shoulder. Patient states that she has some pain with movement now. Denies any pain radiating down the arm or neck. Denies numbness or tingling to the arm. Patient has had previous rotator cuff surgery to the shoulder. She took Tylenol for pain control. Denies any other injuries or concerns. Patient denies any headache, back pain, chest pain, shortness of breath, dizziness, weakness, abdominal pain, nausea, vomiting, or difficulties with bowel movements or urination. - Related Data Home Medications Medication Instructions Recorded Confirmed Escitalopram [Lexapro] 20 mg PO DAILY 04/12/14 05/18/19 Omeprazole [PriLOSEC] 20 mg PO BID 02/03/15 05/18/19 diphenhydrAMINE [Benadryl] 25 mg PO HS 09/01/15 05/18/19 Loratadine [Claritin] 10 mg PO DAILY 05/08/19 05/18/19 Multivitamins, Thera [Multivitamin 1 tab PO DAILY 05/08/19 05/18/19 (formulary)] Previous Rx's Medication Instructions Recorded Ibuprofen [Motrin] 600 mg PO Q6HR PRN #20 tab 05/18/19 Allergies Allergy/AdvReac Type Severity Reaction Status Date / Time acetaminophen [From Vicodin] Allergy Swelling Verified 07/08/19 19:54 amoxicillin Allergy Swelling Verified 05/18/19 08:40 clonazepam [From Klonopin] Allergy Swelling Verified 05/18/19 08:40 codeine Allergy Rash/Hives Verified 05/18/19 08:40 hydrocodone Allergy Anaphylaxis Verified 05/18/19 08:40 imipramine Allergy Rash/Hives Verified 05/18/19 08:40 morphine Allergy Swelling Verified 05/18/19 08:40 ondansetron [From Zofran] Allergy Itching Verified 05/18/19 08:40 Penicillins Allergy Anaphylaxis Verified 05/18/19 08:40 sulfamethoxazole Allergy Swelling Verified 05/18/19 08:40 [From Bactrim] tramadol Allergy Itching Verified 05/18/19 08:40 trimethoprim [From Bactrim] Allergy Swelling Verified 05/18/19 08:40 Review of Systems ROS Statement: Those systems with pertinent positive or pertinent negative responses have been documented in the HPI. ROS Other: All systems not noted in ROS Statement are negative. Past Medical History Past Medical History: GERD/Reflux, Osteoarthritis (OA) Additional Past Medical History / Comment(s): ARTHRITIS PAIN IN KNEES, HIPS AND SHOULDER. History of Any Multi-Drug Resistant Organisms: None Reported Past Surgical History: Appendectomy, Cholecystectomy, Hysterectomy, Joint Replacement, Orthopedic Surgery Additional Past Surgical History / Comment(s): TOTAL LT SHOULDER. Shoulders bilat, Knees bilat., ANKLE SURGERY, EGD , COLONOSCOPY. Past Anesthesia/Blood Transfusion Reactions: No Reported Reaction, Motion Sickness Past Psychological History: Anxiety, Depression Smoking Status: Never smoker Past Alcohol Use History: None Reported Past Drug Use History: None Reported - Past Family History Mother Family Medical History: No Reported History General Exam General appearance: alert, in no apparent distress, other (This is a well- developed, well-nourished adult female patient in no acute distress. Vital signs upon presentation are temperature 98.1F, pulse 66, respirations 18, blood pressure 110/72, pulse ox 97% on room air.) ENT exam: Present: mucous membranes moist Respiratory exam: Present: normal lung sounds bilaterally. Absent: respiratory distress, wheezes, rales, rhonchi, stridor Cardiovascular Exam: Present: regular rate, normal rhythm, normal heart sounds. Absent: systolic murmur, diastolic murmur, rubs, gallop, clicks Extremities exam: Present: full ROM, normal capillary refill, other (Skin to the right upper extremity is pink, warm, dry. Cap refills less than 3 seconds. Radial pulses are 2+ and equal bilaterally.). Absent: tenderness, pedal edema, joint swelling, calf tenderness Neurological exam: Present: alert, oriented X3, CN II-XII intact Psychiatric exam: Present: normal affect, normal mood Skin exam: Present: warm, dry, intact, normal color. Absent: rash Course Vital Signs 07/08/19 19:50 Temperature 98.1 F Pulse Rate 66 Respiratory 18 Rate Blood Pressure 110/72 O2 Sat by Pulse 97 Oximetry Medical Decision Making - Medical Decision Making 54-year-old female patient presents to the emergency department today for evaluation of right shoulder pain. Physical examination reveals normal neurovascular status of the right upper extremity. Patient has full range of motion, no limitation, with increased pain with movement of the arm. X-ray was negative. We'll discharge to follow-up with the primary care physician she is put on restriction at work to lift no more than 15 pounds until cleared by her doctor. Return parameters were discussed in detail. She verbalizes understanding and agrees this plan. - Radiology Data Radiology results: report reviewed, image reviewed 3 views of the right shoulder obtained. Report was reviewed in its entirety. Impression by Dr. Gutierres shows no acute fracture dislocation the right shoulder pain Disposition Clinical Impression: Right shoulder strain Disposition: HOME SELF-CARE Condition: Good Instructions (If sedation given, give patient instructions): Shoulder Sprain (ED) Additional Instructions: Rest the right shoulder. Apply ice 20 minutes at a time at least 4 times daily. Take Tylenol and Motrin for pain control. Follow-up through primary care physician for recheck in 1-2 days. Return to the emergency department immediately for any new, worsening, or concerning symptoms. Is patient prescribed a controlled substance at d/c from ED?: No Referrals: Brandt Moore DO [Primary Care Provider] - 1-2 days Time of Disposition: 20:44
== END 2019-07-08 20:59 | disposition home or self-care (01) ==
LOC: EC 19:35
DX: S46.911A Strain of unspecified muscle, fascia and tendon at shoulder and upper arm level, right arm, initial encounter (principal); M19.90 Unspecified osteoarthritis, unspecified site; K21.9 Gastro-esophageal reflux disease without esophagitis; F41.9 Anxiety disorder, unspecified; F32.9 Major depressive disorder, single episode, unspecified; Z96.698 Presence of other orthopedic joint implants; Z79.899 Other long term (current) drug therapy; Z88.6 Allergy status to analgesic agent; Z88.0 Allergy status to penicillin; Z88.8 Allergy status to other drugs, medicaments and biological substances; Z88.5 Allergy status to narcotic agent; Z88.2 Allergy status to sulfonamides; X50.0XXA Overexertion from strenuous movement or load, initial encounter; Y92.69 Other specified industrial and construction area as the place of occurrence of the external cause; Y93.89 Activity, other specified; Y99.0 Civilian activity done for income or pay
CPT/HCPCS: 99283

== ENCOUNTER 2019-07-29 11:16 | Emergency (ER) | payer OTHER ==
--- NOTE | 2019-07-29 12:42 | XR ---
EXAMINATION TYPE: XR shoulder complete RT DATE OF EXAM: 07/29/2019 CLINICAL HISTORY: pain TECHNIQUE: Three views of the right shoulder are obtained. COMPARISON: 07/08/2019 FINDINGS: Postoperative change noted about the right shoulder compatible with rotator cuff repair. Pa rtial resection distal clavicle. Elevation of the distal clavicle may be postsurgical in nature and i s stable. Correlate clinically. No acute fractures evident. Bony fragmentation of the distal clavicle and at the site of acromioplasty. IMPRESSION: 1. There is no acute fracture or dislocation. ICD 10 NO FRACTURE, INITIAL EVALUATION
--- NOTE | 2019-07-29 12:59 | ED ---
General Adult HPI - General Chief complaint: Extremity Injury, Upper Stated complaint: right shoulder pain Time Seen by Provider: 07/29/19 12:11 Source: patient, RN notes reviewed, old records reviewed Mode of arrival: ambulatory Limitations: no limitations - History of Present Illness Initial comments: 54-year-old female patient past history significant for rotator cuff repair on right shoulder is the chief complaint of right shoulder injury. 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 Patient reports that is in the right deltoid region. Patient reports it is worse with range of motion and has been persistent and causing her discomfort. Denies any other complaints. Denies any other injuries. Denies any chest pain or shortness of breath. Systemic: Pt denies fatigue, fever/chills, rash. Pt denies weakness, night sweats, weight loss. Neuro: Pt denies headache, visual disturbances, syncope or pre-syncope. HEENT: Pt denies ocular discharge or irritation, otalgia, rhinorrhea, pharyngitis or notable lymphadenopathy. Cardiopulmonary: Pt denies chest pain, SOB, heart palpitations, dyspnea on exertion. Abdominal/GI: Pt denies abdominal pain, n/v/d. : Pt denies dysuria, burning w/ urination, frequency/urgency. Denies new onset urinary or bowel incontinence. MSK: Pt denies myalgia, loss of strength or function in extremities. Neuro: Pt denies new onset weakness, paresthesias. - Related Data Home Medications Medication Instructions Recorded Confirmed Escitalopram [Lexapro] 20 mg PO DAILY 04/12/14 05/18/19 Omeprazole [PriLOSEC] 20 mg PO BID 02/03/15 05/18/19 diphenhydrAMINE [Benadryl] 25 mg PO HS 09/01/15 05/18/19 Loratadine [Claritin] 10 mg PO DAILY 05/08/19 05/18/19 Multivitamins, Thera [Multivitamin 1 tab PO DAILY 05/08/19 05/18/19 (formulary)] Previous Rx's Medication Instructions Recorded Ibuprofen [Motrin] 600 mg PO Q6HR PRN #20 tab 05/18/19 Allergies Allergy/AdvReac Type Severity Reaction Status Date / Time acetaminophen [From Vicodin] Allergy Swelling Verified 07/29/19 11:55 amoxicillin Allergy Swelling Verified 07/29/19 11:55 clonazepam [From Klonopin] Allergy Swelling Verified 07/29/19 11:55 codeine Allergy Rash/Hives Verified 07/29/19 11:55 hydrocodone Allergy Anaphylaxis Verified 07/29/19 11:55 imipramine Allergy Rash/Hives Verified 07/29/19 11:55 morphine Allergy Swelling Verified 07/29/19 11:55 ondansetron [From Zofran] Allergy Itching Verified 07/29/19 11:55 Penicillins Allergy Anaphylaxis Verified 07/29/19 11:55 sulfamethoxazole Allergy Swelling Verified 07/29/19 11:55 [From Bactrim] tramadol Allergy Itching Verified 07/29/19 11:55 trimethoprim [From Bactrim] Allergy Swelling Verified 07/29/19 11:55 Review of Systems ROS Statement: Those systems with pertinent positive or pertinent negative responses have been documented in the HPI. ROS Other: All systems not noted in ROS Statement are negative. Past Medical History Past Medical History: GERD/Reflux, Osteoarthritis (OA) Additional Past Medical History / Comment(s): ARTHRITIS PAIN IN KNEES, HIPS AND SHOULDER. History of Any Multi-Drug Resistant Organisms: None Reported Past Surgical History: Appendectomy, Cholecystectomy, Hysterectomy, Joint Replacement, Orthopedic Surgery Additional Past Surgical History / Comment(s): TOTAL LT SHOULDER. Shoulders bilat, Knees bilat., ANKLE SURGERY, EGD , COLONOSCOPY. Past Anesthesia/Blood Transfusion Reactions: No Reported Reaction, Motion Sickness Past Psychological History: Anxiety, Depression Smoking Status: Never smoker Past Alcohol Use History: None Reported Past Drug Use History: None Reported - Past Family History Mother Family Medical History: No Reported History General Exam - General Exam Comments Initial Comments: Constitutional: NAD, AOX3, Pt has pleasant affect. HEENT: NC/AT, trachea midline, neck supple, no lymphadenopathy. Posterior pharynx non erythematous, without exudates. External ears appear normal, without discharge. Mucous membranes moist. Eyes PERRLA, EOM intact. There is no scleral icterus. No pallor noted. Cardiopulmonary: RRR, no murmurs, rubs or gallops, no JVD noted. Lungs CTAB in anterior and posterior stephens. No peripheral edema. Abdominal exam: Abdomen soft and non-distended. Abdomen non-tender to palpation in all 4 quadrants. Bowel sounds active in LLQ. No hepatosplenomegaly. No ecchymosis Neuro: CN II-XII grossly intact. No nuchal rigidity. No raccon eyes, no caro sign, no hemotympanum. No cervical spinal tenderness. MSK: No posterior calf tenderness bilaterally, homans sign negative bilaterally. Posterior tibialis and radial pulse +2 bilaterally. Sensation intact in upper and lower extremities. Full active ROM in upper and lower extremities, 5/5 stregnth. Limitations: no limitations Course Vital Signs 07/29/19 11:53 Temperature 98.1 F Pulse Rate 69 Respiratory 18 Rate Blood Pressure 111/68 O2 Sat by Pulse 98 Oximetry Medical Decision Making - Medical Decision Making 54-year-old female patient past history significant for rotator cuff repair on right shoulder is the chief complaint of right shoulder injury. 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 Patient reports that is in the right deltoid region. Patient reports it is worse with range of motion and has been persistent and causing her discomfort. Denies any other complaints. Denies any other injuries. Denies any chest pain or shortness of breath. Patient vital signs stable, afebrile. Physical exam displayed shoulder to be mildly tender anterior aspect. Full active range of motion. Strength intact. Plain films displayed no acute fracture dislocation. Patient was discharged to follow up with orthopedic consult and will return to ER if condition worsens. Case discussed with Dr. Cho. Disposition Clinical Impression: Shoulder sprain Disposition: HOME SELF-CARE Condition: Stable Instructions (If sedation given, give patient instructions): Shoulder Sprain (ED) Additional Instructions: Follow-up with primary care provider and orthopedic consult tomorrow. Return to ER if condition worsens. Is patient prescribed a controlled substance at d/c from ED?: No Referrals: Brandt Moore DO [Primary Care Provider] - 1-2 days Hai Lo MD [Medical Doctor] - 1-2 days
[2019-07-29 13:26] VITALS: BP 107/73; PULSE 56; RESP 16; TEMP 98.6
== END 2019-07-29 13:47 | disposition home or self-care (01) ==
LOC: EC 11:16
DX: S43.401A Unspecified sprain of right shoulder joint, initial encounter (principal); F41.9 Anxiety disorder, unspecified; F32.9 Major depressive disorder, single episode, unspecified; K21.9 Gastro-esophageal reflux disease without esophagitis; M19.90 Unspecified osteoarthritis, unspecified site; Z79.899 Other long term (current) drug therapy; Z88.0 Allergy status to penicillin; Z88.1 Allergy status to other antibiotic agents; Z88.8 Allergy status to other drugs, medicaments and biological substances; Z88.5 Allergy status to narcotic agent; Z88.2 Allergy status to sulfonamides; Z98.890 Other specified postprocedural states; X50.0XXA Overexertion from strenuous movement or load, initial encounter; Y93.89 Activity, other specified; Y92.69 Other specified industrial and construction area as the place of occurrence of the external cause
CPT/HCPCS: 99284

== ENCOUNTER 2019-08-24 16:03 | Emergency (ER) | payer OTHER ==
[2019-08-24 16:12] VITALS: RESP 16
--- NOTE | 2019-08-24 16:18 | ED ---
General Adult HPI - General Stated complaint: fall, rt shoulder pain Time Seen by Provider: 08/24/19 16:05 Source: patient, RN notes reviewed, old records reviewed Mode of arrival: EMS Limitations: no limitations - History of Present Illness Initial comments: 54-year-old female patient presents to ED for chief complaint of fall with pain. Patient port that she was shopping, and she tripped over something falling forward hitting her right shoulder. Patient does not know if she had trauma to head and neck, does have pain in her neck, believe she may have had a brief loss of consciousness. This fall was reportedly witnessed however there is nobody else to corroborate the story. At time of evaluation patient's chief complaint is neck pain as well as right shoulder pain. Denies any use of blood thinners. Denies any chance of being . Denies any pain in any other places. Systemic: Pt denies fatigue, fever/chills, rash. Pt denies weakness, night sweats, weight loss. Neuro: Pt denies headache, visual disturbances, syncope or pre-syncope. HEENT: Pt denies ocular discharge or irritation, otalgia, rhinorrhea, pharyngitis or notable lymphadenopathy. Cardiopulmonary: Pt denies chest pain, SOB, heart palpitations, dyspnea on exertion. Abdominal/GI: Pt denies abdominal pain, n/v/d. : Pt denies dysuria, burning w/ urination, frequency/urgency. Denies new onset urinary or bowel incontinence. MSK: Pt denies myalgia, loss of strength or function in extremities. Neuro: Pt denies new onset weakness, paresthesias. - Related Data Home Medications Medication Instructions Recorded Confirmed Escitalopram [Lexapro] 20 mg PO DAILY 04/12/14 05/18/19 RX: Omeprazole [PriLOSEC] 20 mg PO BID 02/03/15 05/18/19 diphenhydrAMINE [Benadryl] 25 mg PO HS 09/01/15 05/18/19 Loratadine [Claritin] 10 mg PO DAILY 05/08/19 05/18/19 Multivitamins, Thera [Multivitamin 1 tab PO DAILY 05/08/19 05/18/19 (formulary)] Previous Rx's Medication Instructions Recorded Ibuprofen [Motrin] 600 mg PO Q6HR PRN #20 tab 05/18/19 Allergies Allergy/AdvReac Type Severity Reaction Status Date / Time acetaminophen [From Vicodin] Allergy Swelling Verified 08/24/19 16:12 amoxicillin Allergy Swelling Verified 08/24/19 16:12 clonazepam [From Klonopin] Allergy Swelling Verified 08/24/19 16:12 codeine Allergy Rash/Hives Verified 08/24/19 16:12 hydrocodone Allergy Anaphylaxis Verified 08/24/19 16:12 imipramine Allergy Rash/Hives Verified 08/24/19 16:12 morphine Allergy Swelling Verified 08/24/19 16:12 ondansetron [From Zofran] Allergy Itching Verified 08/24/19 16:12 Penicillins Allergy Anaphylaxis Verified 08/24/19 16:12 sulfamethoxazole Allergy Swelling Verified 08/24/19 16:12 [From Bactrim] tramadol Allergy Itching Verified 08/24/19 16:12 trimethoprim [From Bactrim] Allergy Swelling Verified 08/24/19 16:12 Review of Systems ROS Statement: Those systems with pertinent positive or pertinent negative responses have been documented in the HPI. ROS Other: All systems not noted in ROS Statement are negative. Past Medical History Past Medical History: GERD/Reflux, Osteoarthritis (OA) Additional Past Medical History / Comment(s): ARTHRITIS PAIN IN KNEES, HIPS AND SHOULDER. History of Any Multi-Drug Resistant Organisms: None Reported Past Surgical History: Appendectomy, Cholecystectomy, Hysterectomy, Joint Replacement, Orthopedic Surgery Additional Past Surgical History / Comment(s): TOTAL LT SHOULDER. Shoulders bilat, Knees bilat., ANKLE SURGERY, EGD , COLONOSCOPY. Past Anesthesia/Blood Transfusion Reactions: No Reported Reaction, Motion Sickness Past Psychological History: Anxiety, Depression Smoking Status: Never smoker Past Alcohol Use History: None Reported Past Drug Use History: None Reported - Past Family History Mother Family Medical History: No Reported History General Exam - General Exam Comments Initial Comments: Constitutional: NAD, AOX3, Pt has pleasant affect. HEENT: NC/AT, trachea midline, neck supple, no lymphadenopathy. Posterior pharynx non erythematous, without exudates. External ears appear normal, without discharge. Mucous membranes moist. Eyes PERRLA, EOM intact. There is no scleral icterus. No pallor noted. Cardiopulmonary: RRR, no murmurs, rubs or gallops, no JVD noted. Lungs CTAB in anterior and posterior stephens. No peripheral edema. Abdominal exam: Abdomen soft and non-distended. Abdomen non-tender to palpation in all 4 quadrants. Bowel sounds active in LLQ. No hepatosplenomegaly. No ecchymosis Neuro: CN II-XII intact. No nuchal rigidity. No raccon eyes, no caro sign, no hemotympanum. Mild amount of cervical spinal tenderness. No step off. MSK: Right anterior shoulder region mildly tender to palpation. Right proximal humerus Neurovascularly intact. Full active range of motion of right hand, radial pulse +2, sensation intact. No posterior calf tenderness bilaterally, homans sign negative bilaterally. Posterior tibialis and radial pulse +2 bilaterally. Sensation intact in upper and lower extremities. Full active ROM in lower extremities, 5/5 stregnth. No other areas of tenderness. Limitations: no limitations Course Vital Signs 08/24/19 16:08 Temperature 98.1 F Pulse Rate 60 Respiratory 16 Rate Blood Pressure 103/60 O2 Sat by Pulse 99 Oximetry Medical Decision Making - Medical Decision Making 54-year-old female patient presents to ED for chief complaint of fall with pain. Patient port that she was shopping, and she tripped over something falling forward hitting her right shoulder. Patient does not know if she had trauma to head and neck, does have pain in her neck, believe she may have had a brief loss of consciousness. This fall was reportedly witnessed however there is nobody else to corroborate the story. At time of evaluation patient's chief complaint is neck pain as well as right shoulder pain. Denies any use of blood thinners. Denies any chance of being . Denies any pain in any other places. Patient will signs stable, afebrile. Physical exam displayed intact neurologic exam, mild amount of cervical spinal tenderness, right proximal humerus/shoulder tenderness. Neurovascularly intact. Full active range of motion of right hand, radial pulse +2, sensation intact. CT brain and C-spine did not display acute process. Shoulder x-ray displayed rate humeral fracture slightly displaced laterally angulated proximal diaphyseal right humerus fracture. Chest x-ray did not display acute process. Case was discussed with on-call orthopedic Neal Mcwilliams PA-C who reccomended transfer. She placed in sling. Will be transferred to [facility]. Case discussed with Dr. Cho. Case was accepted by B[facility] Dozier. Accepting physician at [facility] Dr. Torrez. Disposition Clinical Impression: Humerus fracture Disposition: OTHER INSTITUTION NOT DEFINED Condition: Serious Is patient prescribed a controlled substance at d/c from ED?: No Referrals: Brandt Moore DO [Primary Care Provider] - 1-2 days - Out of Hospital Transfer - Req. Specs Out of Hospital Transfer - Requested Specifics: Other Emergency Center ([facility])
--- NOTE | 2019-08-24 16:58 | CT ---
EXAMINATION TYPE: CT brain cspine wo con DATE OF EXAM: 08/24/2019 COMPARISON: CT brain and C-spine 11/19/2017 HISTORY: fall, trauma and pain, altered mental status CT DLP: 1357.3 mGycm Automated exposure control for dose reduction was used. TECHNIQUE: CT scan of the head and cervical spine are performed without contrast. FINDINGS: There is no acute intracranial hemorrhage, mass effect, or midline shift identified. The ventricles and sulci are within normal limits in size. The globes are intact and the visualized sin uses are remarkable for inflammatory change left maxillary sinus. Cervical spine is visualized in its entirety from C1 through upper thoracic levels and demonstrates s atisfactory alignment without evidence of acute fracture or dislocation. Prevertebral soft tissue ap pears within normal limits. The C1-C2 articulation is unremarkable. IMPRESSION: 1. There is no acute fracture or dislocation evident in the cervical spine. 2. No acute intracranial hemorrhage, mass effect, or midline shift is seen.
--- NOTE | 2019-08-24 17:47 | XR ---
Right shoulder HISTORY: Trauma and pain 3 views of the right shoulder correlated to prior exam 07/29/2019 Suture anchor is present in the humeral head as on prior exam. There is a slightly displaced laterall y angulated proximal diaphyseal right humeral fracture. No evident dislocation. Overlying artifact is noted. IMPRESSION: Right humeral fracture.
--- NOTE | 2019-08-24 17:48 | XR ---
EXAMINATION TYPE: XR chest 1V DATE OF EXAM: 08/24/2019 COMPARISON: AP chest x-ray HISTORY: Trauma and pain Single frontal view of the chest correlated prior chest x-ray 06/17/2019 Patient is rotated. No significant interval change. Stopped changes noted to the left shoulder. No pn eumothorax or pleural effusion. Cardiac mediastinal silhouette, pulmonary vascularity and anton are st able. IMPRESSION: Rotated exam. No acute abnormalities evident.
[2019-08-24] MEDS ORDERED: ACETAMINOPHEN TAB 325 MG TAB PO STA (18:02)
[2019-08-24 19:04] VITALS: BP 106/70; PULSE 68; TEMP 98
== END 2019-08-24 19:13 | disposition other institution (70) ==
LOC: EC 16:03
DX: S42.201A Unspecified fracture of upper end of right humerus, initial encounter for closed fracture (principal); M54.2 Cervicalgia; M16.0 Bilateral primary osteoarthritis of hip; M17.0 Bilateral primary osteoarthritis of knee; M19.012 Primary osteoarthritis, left shoulder; M19.011 Primary osteoarthritis, right shoulder; K21.9 Gastro-esophageal reflux disease without esophagitis; F41.9 Anxiety disorder, unspecified; F32.9 Major depressive disorder, single episode, unspecified; Z96.698 Presence of other orthopedic joint implants; Z79.899 Other long term (current) drug therapy; Z88.6 Allergy status to analgesic agent; Z88.5 Allergy status to narcotic agent; Z88.8 Allergy status to other drugs, medicaments and biological substances; Z88.0 Allergy status to penicillin; Z88.2 Allergy status to sulfonamides; W18.09XA Striking against other object with subsequent fall, initial encounter; Y92.512 Supermarket, store or market as the place of occurrence of the external cause
CPT/HCPCS: 70450; 71045; 72125; 99285

== ENCOUNTER → 2020-02-14 | Outpatient (CLI) | payer OTHER ==
--- NOTE | 2020-02-14 10:56 | XR ---
Right humerus HISTORY: Right shoulder pain 3 views the right humerus related to right shoulder dated 08/24/2019 Patient is status post open reduction internal fixation for proximal right humeral fracture. Alignmen t is maintained, there is a slight step-off noted at the fracture site, there is callus formation con sistent with fracture healing. No dislocation. Bone mineralization is reduced. Patient shows a suture anchor in the humeral head. There is no acute fracture or dislocation. Small ossific densities are a gain noted about the acromion, coracoid clavicular joint. Right lung apex as visualized is normal. IMPRESSION: Postop changes. Healed fracture.
== END | disposition home or self-care (01) ==
LOC: RADXRMAIN 10:00
PROVIDERS: ATTEND Family Medicine
DX: M25.511 Pain in right shoulder (principal); Z98.890 Other specified postprocedural states

== ENCOUNTER 2020-03-14 18:20 | Emergency (ER) | payer OTHER ==
[2020-03-14 18:34] VITALS: BP 101/65; PULSE 73; RESP 18; TEMP 98.4
--- NOTE | 2020-03-14 18:44 | ED ---
Fall HPI - General Chief Complaint: Fall Stated Complaint: [facility] - fall, lt hand/shoulder pain, lec lac Time Seen by Provider: 03/14/20 18:36 Source: patient, RN notes reviewed, old records reviewed Mode of arrival: ambulatory Limitations: no limitations - History of Present Illness Initial Comments: This is a 54-year-old female DF status post trip and fall will abrasion to anterior left davis some bruising to left elbow wrist and shoulder. No loss of consciousness injury did happen hours ago MD Complaint: fall -: hour(s) Fall From: standing When Fall Occurred: 4-6 hours [employer] Fall Witnessed: yes, by bystander Place Fall Occurred: senior care/SNF Loss of Consciousness: none Prolonged Down Time?: no Symptoms Prior to Fall: none Location: head Location - Extremities: Left: Shoulder, Arm, Elbow, Hand Severity: moderate Severity scale (1-10): 6 Quality: aching Context: tripped/slipped Associated Symptoms: denies - Related Data Home Medications Medication Instructions Recorded Confirmed Escitalopram [Lexapro] 20 mg PO DAILY 04/12/14 05/18/19 Omeprazole [PriLOSEC] 20 mg PO BID 02/03/15 05/18/19 diphenhydrAMINE [Benadryl] 25 mg PO HS 09/01/15 05/18/19 Loratadine [Claritin] 10 mg PO DAILY 05/08/19 05/18/19 Multivitamins, Thera [Multivitamin 1 tab PO DAILY 05/08/19 05/18/19 (formulary)] Previous Rx's Medication Instructions Recorded Ibuprofen [Motrin] 600 mg PO Q6HR PRN #20 tab 05/18/19 Allergies Allergy/AdvReac Type Severity Reaction Status Date / Time acetaminophen [From Vicodin] Allergy Swelling Verified 03/14/20 18:30 amoxicillin Allergy Swelling Verified 03/14/20 18:30 clonazepam [From Klonopin] Allergy Swelling Verified 03/14/20 18:30 codeine Allergy Rash/Hives Verified 03/14/20 18:30 hydrocodone Allergy Anaphylaxis Verified 03/14/20 18:30 imipramine Allergy Rash/Hives Verified 03/14/20 18:30 morphine Allergy Swelling Verified 03/14/20 18:30 ondansetron [From Zofran] Allergy Itching Verified 03/14/20 18:30 Penicillins Allergy Anaphylaxis Verified 03/14/20 18:30 sulfamethoxazole Allergy Swelling Verified 03/14/20 18:30 [From Bactrim] tramadol Allergy Itching Verified 03/14/20 18:30 trimethoprim [From Bactrim] Allergy Swelling Verified 03/14/20 18:30 Review of Systems ROS Statement: Those systems with pertinent positive or pertinent negative responses have been documented in the HPI. ROS Other: All systems not noted in ROS Statement are negative. Past Medical History Past Medical History: GERD/Reflux, Osteoarthritis (OA) Additional Past Medical History / Comment(s): ARTHRITIS PAIN IN KNEES, HIPS AND SHOULDER. History of Any Multi-Drug Resistant Organisms: None Reported Past Surgical History: Appendectomy, Cholecystectomy, Hysterectomy, Joint Replacement, Orthopedic Surgery Additional Past Surgical History / Comment(s): TOTAL LT SHOULDER. Shoulders bilat, Knees bilat., ANKLE SURGERY, EGD , COLONOSCOPY. Past Anesthesia/Blood Transfusion Reactions: No Reported Reaction, Motion Sickness Past Psychological History: Anxiety, Depression Smoking Status: Never smoker Past Alcohol Use History: None Reported Past Drug Use History: None Reported - Past Family History Mother Family Medical History: No Reported History General Exam - General Exam Comments Initial Comments: abrasion to anterior left davis 2 x 1 cm Limitations: no limitations General appearance: alert, in no apparent distress Head exam: Present: atraumatic, normocephalic, normal inspection Eye exam: Present: normal appearance, PERRL, EOMI. Absent: scleral icterus, conjunctival injection, periorbital swelling ENT exam: Present: normal exam, mucous membranes moist Neck exam: Present: normal inspection. Absent: tenderness, meningismus, lymphadenopathy Respiratory exam: Present: normal lung sounds bilaterally. Absent: respiratory distress, wheezes, rales, rhonchi, stridor Cardiovascular Exam: Present: regular rate, normal rhythm, normal heart sounds. Absent: systolic murmur, diastolic murmur, rubs, gallop, clicks GI/Abdominal exam: Present: soft, normal bowel sounds. Absent: distended, tenderness, guarding, rebound, rigid Extremities exam: Present: normal inspection, full ROM, normal capillary refill. Absent: tenderness, pedal edema, joint swelling, calf tenderness Back exam: Present: normal inspection Neurological exam: Present: alert, oriented X3, CN II-XII intact Psychiatric exam: Present: normal affect, normal mood Skin exam: Present: warm, dry, intact, normal color. Absent: rash Course Vital Signs 03/14/20 18:30 Temperature 98.4 F Pulse Rate 73 Respiratory 18 Rate Blood Pressure 101/65 O2 Sat by Pulse 95 Oximetry - Reevaluation(s) Reevaluation #1: 03/14/20 19:57 Medical records reviewed Reevaluation #2: 03/14/20 19:57 Patient no distress Reevaluation #3: 03/14/20 19:57 Abrasion is repaired with Dermabond Medical Decision Making - Medical Decision Making 54 female DF for evaluation patient does have no significant traumatic injury. Follows mechanical trip and fall. Patient can be discharged home Disposition Clinical Impression: Fall, Contusion of left arm Disposition: HOME SELF-CARE Condition: Good Instructions (If sedation given, give patient instructions): Fall Prevention (ED), Arm Pain (ED), Contusion in Adults (ED) Is patient prescribed a controlled substance at d/c from ED?: No Referrals: Brandt Moore DO [Primary Care Provider] - 1-2 days
[2020-03-14] MEDS ORDERED: ACETAMINOPHEN TAB 500 MG TAB PO STA (19:01)
[2020-03-14] MEDS ORDERED: IBUPROFEN 800 MG TAB PO STA (19:01)
--- NOTE | 2020-03-14 19:41 | XR ---
EXAMINATION TYPE: XR shoulder complete LT DATE OF EXAM: 03/14/2020 COMPARISON: 05/18/2019 HISTORY: Pain TECHNIQUE: 3 views FINDINGS: There is left shoulder prosthesis. I see no fracture nor dislocation. Scapula is intact. Th ere is osteopenia. IMPRESSION: No acute abnormality of the left shoulder. No change.
--- NOTE | 2020-03-14 19:42 | XR ---
EXAMINATION TYPE: XR elbow complete LT DATE OF EXAM: 03/14/2020 COMPARISON: NONE HISTORY: Pain TECHNIQUE: 3 views FINDINGS: I see no fracture nor dislocation. Joint spaces are normal. There is no evidence of elbow j oint effusion. IMPRESSION: Negative left elbow exam. No fracture seen.
--- NOTE | 2020-03-14 19:43 | XR ---
EXAMINATION TYPE: XR wrist complete LT DATE OF EXAM: 03/14/2020 COMPARISON: NONE HISTORY: Pain. Fall. TECHNIQUE: 4 views FINDINGS: I see no fracture nor dislocation. Carpal bones are intact. There are no erosions. IMPRESSION: Negative left wrist exam. No fracture.
[2020-03-14] MEDS ORDERED: TOPICAL SKIN ADHESIVE 1 EACH AMP TOPICAL ONE (19:51)
== END 2020-03-14 20:14 | disposition home or self-care (01) ==
LOC: EC 18:20
DX: S50.02XA Contusion of left elbow, initial encounter (principal); S60.212A Contusion of left wrist, initial encounter; S40.012A Contusion of left shoulder, initial encounter; S80.812A Abrasion, left lower leg, initial encounter; F41.9 Anxiety disorder, unspecified; F32.9 Major depressive disorder, single episode, unspecified; K21.9 Gastro-esophageal reflux disease without esophagitis; Z79.899 Other long term (current) drug therapy; Z88.6 Allergy status to analgesic agent; Z88.0 Allergy status to penicillin; Z88.8 Allergy status to other drugs, medicaments and biological substances; Z88.5 Allergy status to narcotic agent; Z88.2 Allergy status to sulfonamides; Z88.1 Allergy status to other antibiotic agents; Z96.60 Presence of unspecified orthopedic joint implant; Z98.890 Other specified postprocedural states; W01.0XXA Fall on same level from slipping, tripping and stumbling without subsequent striking against object, initial encounter; Y92.69 Other specified industrial and construction area as the place of occurrence of the external cause; Y99.0 Civilian activity done for income or pay
CPT/HCPCS: 99284

== ENCOUNTER 2020-09-03 13:21 | Emergency (ER) | payer OTHER ==
[2020-09-03 13:33] VITALS: BP 109/66; PULSE 67; RESP 18; TEMP 98
[2020-09-03] MEDS ORDERED: ACETAMINOPHEN TAB 325 MG TAB PO STA (13:53)
--- NOTE | 2020-09-03 14:41 | ED ---
General Adult HPI - General Source: patient Mode of arrival: ambulatory Limitations: no limitations <Stef Sy - Last Filed: 09/03/20 16:00> <Giselle Mora - Last Filed: 09/05/20 11:43> - General Chief complaint: Fall Stated complaint: fall Time Seen by Provider: 09/03/20 13:37 - History of Present Illness Initial comments: 55-year-old female presents to the emergency department for a slip and fall. Patient reports that her landlord does not salts her apartment parking lot. Patient states she slipped and fell yesterday landing on the left shoulder and hip. Patient states she is able to walk on the left hip however is somewhat painful. Full range motion of the left shoulder but wants to make sure she did not break anything. Patient does not recall hitting her head. She had no loss of consciousness. She does not take blood thinners. No headache or neck pain. Patient states her neighbor worsening her head and there is a sore spot so she thought she may have had a however this has resolved.Patient has no other complaints at this time including shortness of breath, chest pain, abdominal pain, nausea or vomiting, headache, or visual changes. (Stef Sy) - Related Data Home Medications Medication Instructions Recorded Confirmed Escitalopram [Lexapro] 20 mg PO DAILY 04/12/14 05/18/19 Omeprazole [PriLOSEC] 20 mg PO BID 02/03/15 05/18/19 diphenhydrAMINE [Benadryl] 25 mg PO HS 09/01/15 05/18/19 Loratadine [Claritin] 10 mg PO DAILY 05/08/19 05/18/19 Multivitamins, Thera [Multivitamin 1 tab PO DAILY 05/08/19 05/18/19 (formulary)] Previous Rx's Medication Instructions Recorded Ibuprofen [Motrin] 600 mg PO Q6HR PRN #20 tab 05/18/19 Allergies Allergy/AdvReac Type Severity Reaction Status Date / Time acetaminophen [From Vicodin] Allergy Swelling Verified 09/03/20 13:31 amoxicillin Allergy Swelling Verified 09/03/20 13:31 clonazepam [From Klonopin] Allergy Swelling Verified 09/03/20 13:31 codeine Allergy Rash/Hives Verified 09/03/20 13:31 hydrocodone Allergy Anaphylaxis Verified 09/03/20 13:31 imipramine Allergy Rash/Hives Verified 09/03/20 13:31 morphine Allergy Swelling Verified 09/03/20 13:31 ondansetron [From Zofran] Allergy Itching Verified 09/03/20 13:31 Penicillins Allergy Anaphylaxis Verified 09/03/20 13:31 sulfamethoxazole Allergy Swelling Verified 09/03/20 13:31 [From Bactrim] tramadol Allergy Itching Verified 09/03/20 13:31 trimethoprim [From Bactrim] Allergy Swelling Verified 09/03/20 13:31 Review of Systems ROS Other: All systems not noted in ROS Statement are negative. <Stef Sy - Last Filed: 09/03/20 16:00> ROS Other: All systems not noted in ROS Statement are negative. <Giselle Mora - Last Filed: 09/05/20 11:43> ROS Statement: Those systems with pertinent positive or pertinent negative responses have been documented in the HPI. Past Medical History Past Medical History: GERD/Reflux, Osteoarthritis (OA) Additional Past Medical History / Comment(s): ARTHRITIS PAIN IN KNEES, HIPS AND SHOULDER. History of Any Multi-Drug Resistant Organisms: None Reported Past Surgical History: Appendectomy, Cholecystectomy, Hysterectomy, Joint Replacement, Orthopedic Surgery Additional Past Surgical History / Comment(s): TOTAL LT SHOULDER. Shoulders bilat, Knees bilat., ANKLE SURGERY, EGD , COLONOSCOPY. Past Anesthesia/Blood Transfusion Reactions: No Reported Reaction, Motion Sickness Past Psychological History: Anxiety, Depression Smoking Status: Never smoker Past Alcohol Use History: None Reported Past Drug Use History: None Reported - Past Family History Mother Family Medical History: No Reported History <Stef Sy P - Last Filed: 09/03/20 16:00> General Exam Limitations: no limitations General appearance: alert, in no apparent distress Head exam: Present: atraumatic (No contusions or hematomas or lacerations noted of the scalp), normal inspection Eye exam: Present: normal appearance, PERRL, EOMI. Absent: scleral icterus, conjunctival injection, periorbital swelling, periorbital tenderness ENT exam: Present: normal exam, mucous membranes moist Neck exam: Present: normal inspection, full ROM. Absent: tenderness Respiratory exam: Present: normal lung sounds bilaterally. Absent: respiratory distress, chest wall tenderness (No chest wall tenderness or ecchymosis) Cardiovascular Exam: Present: regular rate, normal rhythm, normal heart sounds GI/Abdominal exam: Present: soft, normal bowel sounds. Absent: distended, tenderness, guarding, rebound, rigid <Stef Sy - Last Filed: 09/03/20 16:00> - General Exam Comments Initial Comments: Left upper extremity: Full range motion of the left shoulder, no contusions or evidence of external traumatic injury. Radial pulse 2+. Capillary refill less than 2 seconds. Relay Mechanic strength 5 out of 5. Sensation intact. Left lower extremity: Full range of motion of the left hip knee and ankle. DP pulse 2+, capillary refill less than 2 seconds. Sensation intact. Patient able to ambulate. No tenderness throughout the left leg. (Stef Sy) Course Vital Signs 09/03/20 13:31 Temperature 98 F Pulse Rate 67 Respiratory 18 Rate Blood Pressure 109/66 O2 Sat by Pulse 96 Oximetry Medical Decision Making <Stef Sy - Last Filed: 09/03/20 16:00> <Giselle Mora - Last Filed: 09/05/20 11:43> - Medical Decision Making Vitals are stable. Physical exam is unremarkable. X-ray of the left postsurgical changes uncomplicated. X-rays of the left hip and pelvis are normal as well. No acute fractures. Patient ambulatory. At this time patient later told to follow-up with primary care. Any worsening symptoms she will return to the emergency room. (Stef Sy) I was available for consultation in the emergency department. The history and physical exam were done by the midlevel provider. I was consulted for this patients care. I reviewed the case with the midlevel provider and based on their presentation of the patient, I agree with the assessment, medical decision making and plan of care as documented. Chart was dictated using [employer] dictation software. Attempts were made to correct any dictation errors however some typographical errors may persist. Patient was seen during a national state of emergency due to the Covid-19 pandemic. (Giselle Mora) Disposition Is patient prescribed a controlled substance at d/c from ED?: No Time of Disposition: 15:56 <Stef Sy - Last Filed: 09/03/20 16:00> <Giselle Mora - Last Filed: 09/05/20 11:43> Clinical Impression: Shoulder pain, left Disposition: HOME SELF-CARE Condition: Good Instructions (If sedation given, give patient instructions): Shoulder Pain (ED), Hip Pain (ED) Additional Instructions: Please take motrin and tylenol for pain. Follow up with your doctor in 1-2 days. Return to the emergency room for any worsening symptoms Referrals: Brandt Moore DO [Primary Care Provider] - 1-2 days
--- NOTE | 2020-09-03 14:52 | XR ---
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 The humeral stem component appears well seated without periprosthetic fractures seen. Alignment appears appropriate. Shortening of the distal right clavicle likely postsurgical. Visualized left hemithorax is clear. Impression: Uncomplicated appearance to the left TKA.
--- NOTE | 2020-09-03 15:31 | XR ---
EXAMINATION TYPE: XR Hip LT and AP Pelvis DATE OF EXAM: 09/03/2020 COMPARISON: None HISTORY: Fall, pain TECHNIQUE: AP pelvis and 2 views left hip FINDINGS: Femoral heads articulate with the acetabulum. Symphysis pubis and sacroiliac joints are nor mal. Normal bowel gas is present. No acute fracture or dislocation of the left hip is evident. The tadeo int spaces preserved. IMPRESSION: 1. Normal 2 view left hip and AP pelvis
== END 2020-09-03 16:08 | disposition home or self-care (01) ==
LOC: EC 13:21
DX: M25.512 Pain in left shoulder (principal); M25.552 Pain in left hip; K21.9 Gastro-esophageal reflux disease without esophagitis; F41.9 Anxiety disorder, unspecified; F32.9 Major depressive disorder, single episode, unspecified; Z79.899 Other long term (current) drug therapy; Z88.0 Allergy status to penicillin; Z88.5 Allergy status to narcotic agent; Z88.6 Allergy status to analgesic agent; Z88.2 Allergy status to sulfonamides; Z88.1 Allergy status to other antibiotic agents; Z88.8 Allergy status to other drugs, medicaments and biological substances; Z96.652 Presence of left artificial knee joint; W01.0XXA Fall on same level from slipping, tripping and stumbling without subsequent striking against object, initial encounter
CPT/HCPCS: 73502; 99283

== ENCOUNTER 2021-09-16 18:06 | Emergency (ER) | payer OTHER ==
[2021-09-16 18:21] VITALS: BP 118/56; PULSE 75; RESP 16; TEMP 98.4
[2021-09-16] MEDS ORDERED: DOXYCYCLINE 100 MG CAP PO STA (19:58)
[2021-09-16] MEDS ORDERED: CLINDAMYCIN 150 MG CAP PO STA (19:58)
--- NOTE | 2021-09-16 20:01 | ED ---
General Adult HPI - General Chief complaint: Animal Bite Stated complaint: cat bite Time Seen by Provider: 09/16/21 19:36 Source: patient Mode of arrival: ambulatory Limitations: no limitations - History of Present Illness Initial comments: 56 year-old female patient presents for evaluation of cat bite to the right hand. States the cats are indoor cats and belong to her ex-. They do not receive vaccinations. She states injury occurred around 5pm. Denies significant pain to the hand. Did wash immediately after the injury. She denies redness or swelling. Denies fever or chills. Denies any numbness or tingling to the hand. Denies any other injuries or concerns. - Related Data Home Medications Medication Instructions Recorded Confirmed Escitalopram [Lexapro] 20 mg PO DAILY 04/12/14 05/18/19 Omeprazole [PriLOSEC] 20 mg PO BID 02/03/15 05/18/19 diphenhydrAMINE [Benadryl] 25 mg PO HS 09/01/15 05/18/19 Loratadine [Claritin] 10 mg PO DAILY 05/08/19 05/18/19 Multivitamins, Thera [Multivitamin 1 tab PO DAILY 05/08/19 05/18/19 (formulary)] Previous Rx's Medication Instructions Recorded Ibuprofen [Motrin] 600 mg PO Q6HR PRN #20 tab 05/18/19 Clindamycin [Cleocin] 450 mg PO Q6H 7 Days #84 cap 09/16/21 Doxycycline [Vibramycin] 100 mg PO BID 7 Days #14 capsule 09/16/21 Allergies Allergy/AdvReac Type Severity Reaction Status Date / Time acetaminophen [From Vicodin] Allergy Swelling Verified 09/16/21 18:22 amoxicillin Allergy Swelling Verified 09/16/21 18:22 clonazepam [From Klonopin] Allergy Swelling Verified 09/16/21 18:22 codeine Allergy Rash/Hives Verified 09/16/21 18:22 hydrocodone Allergy Anaphylaxis Verified 09/16/21 18:22 imipramine Allergy Rash/Hives Verified 09/16/21 18:22 morphine Allergy Swelling Verified 09/16/21 18:22 ondansetron [From Zofran] Allergy Itching Verified 09/16/21 18:22 Penicillins Allergy Anaphylaxis Verified 09/16/21 18:22 sulfamethoxazole Allergy Swelling Verified 09/16/21 18:22 [From Bactrim] tramadol Allergy Itching Verified 09/16/21 18:22 trimethoprim [From Bactrim] Allergy Swelling Verified 09/16/21 18:22 Review of Systems ROS Statement: Those systems with pertinent positive or pertinent negative responses have been documented in the HPI. ROS Other: All systems not noted in ROS Statement are negative. Past Medical History Past Medical History: GERD/Reflux, Osteoarthritis (OA) Additional Past Medical History / Comment(s): ARTHRITIS PAIN IN KNEES, HIPS AND SHOULDER. History of Any Multi-Drug Resistant Organisms: None Reported Past Surgical History: Appendectomy, Cholecystectomy, Hysterectomy, Joint Replacement, Orthopedic Surgery Additional Past Surgical History / Comment(s): TOTAL LT SHOULDER. Shoulders bilat, Knees bilat., ANKLE SURGERY, EGD , COLONOSCOPY. Past Anesthesia/Blood Transfusion Reactions: No Reported Reaction, Motion Sickness Past Psychological History: Anxiety, Depression Smoking Status: Never smoker Past Alcohol Use History: None Reported Past Drug Use History: None Reported - Past Family History Mother Family Medical History: No Reported History General Exam Limitations: no limitations General appearance: alert, in no apparent distress, other (This is a well- developed, well-nourished adult female in no acute distress.) Respiratory exam: Present: normal lung sounds bilaterally. Absent: respiratory distress, wheezes, rales, rhonchi, stridor Cardiovascular Exam: Present: regular rate, normal rhythm, normal heart sounds. Absent: systolic murmur, diastolic murmur, rubs, gallop, clicks Extremities exam: Present: full ROM, normal capillary refill, other (Multiple puncture and tiny lacerations to the dorsal right hand. No erythema. No swelling. Skin is otherwise pink, warm, dry. Radial pulse is 2+.). Absent: tenderness, pedal edema, joint swelling, calf tenderness Neurological exam: Present: alert, oriented X3, CN II-XII intact Psychiatric exam: Present: normal affect, normal mood Skin exam: Present: warm, dry, intact, normal color. Absent: rash Course Vital Signs 09/16/21 18:19 Temperature 98.4 F Pulse Rate 75 Respiratory 16 Rate Blood Pressure 118/56 O2 Sat by Pulse 97 Oximetry Medical Decision Making - Medical Decision Making 56-year-old female patient presents to the emergency department today for evaluation of A to the right hand. Physical examination did reveal multiple tiny puncture site and the superficial lacerations. No soft tissue swelling or erythema. Radial pulses 2+. She is given clindamycin and doxycycline combination antibiotic. She does have multiple antibiotic ALLERGIES. She will be discharged to follow-up with her primary care physician for recheck in 1-2 days. We did discuss return parameters in detail. She is educated regarding worsening signs or symptoms of infection. She verbalizes understanding and is discharged in stable condition. My attending is Dr. Cho. Disposition Clinical Impression: Cat bite Disposition: HOME SELF-CARE Condition: Good Instructions (If sedation given, give patient instructions): Animal Bite (ED) Additional Instructions: Take antibiotic prescriptions in full. Monitor for fever or worsening infection. Return for any new, worsening, or concerning symptoms. Prescriptions: Clindamycin [Cleocin] 450 mg PO Q6H 7 Days #84 cap Doxycycline [Vibramycin] 100 mg PO BID 7 Days #14 capsule Is patient prescribed a controlled substance at d/c from ED?: No Referrals: Brandt Moore DO [Primary Care Provider] - 1-2 days Time of Disposition: 20:00
== END 2021-09-16 20:09 | disposition home or self-care (01) ==
LOC: EC 18:06
DX: S61.451A Open bite of right hand, initial encounter (principal); K21.9 Gastro-esophageal reflux disease without esophagitis; M19.90 Unspecified osteoarthritis, unspecified site; F32.A Depression, unspecified; F41.9 Anxiety disorder, unspecified; Z90.49 Acquired absence of other specified parts of digestive tract; Z79.899 Other long term (current) drug therapy; W55.01XA Bitten by cat, initial encounter
CPT/HCPCS: 99282

== ENCOUNTER 2022-04-05 11:30 | Emergency (ER) | payer OTHER ==
[2022-04-05 11:42] VITALS: RESP 18; TEMP 98.2
--- NOTE | 2022-04-05 12:25 | XR ---
EXAMINATION TYPE: XR toes LT DATE OF EXAM: 04/05/2022 12:15 PM INDICATION: Patient age:Female; 56 years old; Reason for study: stubbed Big toe; [facility]. COMPARISON: None TECHNIQUE: The first digit of the left foot was examined in the AP, oblique, and lateral projections. FINDINGS: No evidence of any acute osseous pathology. Soft tissue swelling of the first digit. Joints are pres erved. IMPRESSION: 1. No evidence of acute fracture. 2. Soft tissue swelling of the first digit.
--- NOTE | 2022-04-05 12:34 | ED ---
General Adult HPI - General Chief complaint: Extremity Injury, Lower Stated complaint: left ft injury Time Seen by Provider: 04/05/22 11:46 Source: patient, RN notes reviewed Mode of arrival: ambulatory Limitations: no limitations - History of Present Illness Initial comments: 56-year-old female resents emergency Department with chief complaint of left f oot toe pain. Patient states that she went to the light off and tripped stubbing her toe. Patient no loss conscious. Patient complains of left first toe pain with bruising states it's increasing with walking no paresthesias no other associated complaints. - Related Data Home Medications Medication Instructions Recorded Confirmed Escitalopram [Lexapro] 20 mg PO DAILY 04/12/14 09/27/21 Omeprazole [PriLOSEC] 20 mg PO BID 02/03/15 09/27/21 diphenhydrAMINE [Benadryl] 25 mg PO HS 09/01/15 09/27/21 Ascorbic Acid [Vitamin C chew] 500 mg PO BID 09/27/21 09/27/21 Aspirin 325 mg PO QID PRN 09/27/21 09/27/21 Calcium 600 Mg-D3 40mcg 1 tab PO BID 09/27/21 09/27/21 Cetirizine HCl [Zyrtec] 10 mg PO DAILY 09/27/21 09/27/21 Cholecalciferol [Vitamin D3 (125 125 mcg PO DAILY 09/27/21 09/27/21 Mcg = 5000 Iu)] Clindamycin [Cleocin] 450 mg PO BID 09/27/21 09/27/21 Docusate [Colace] 100 mg PO HS 09/27/21 09/27/21 Esomeprazole Magnesium [NexIUM 20 mg PO DAILY PRN 09/27/21 09/27/21 24Hr] Ibuprofen [Motrin] 800 mg PO TID PRN 09/27/21 09/27/21 Melatonin [Melatonin Dissolving 10 mg PO HS 09/27/21 09/27/21 Tablet] Previous Rx's Medication Instructions Recorded Ketorolac [Toradol] 10 mg PO Q6HR #15 tab 09/27/21 Allergies Allergy/AdvReac Type Severity Reaction Status Date / Time acetaminophen [From Vicodin] Allergy Swelling Verified 04/05/22 11:42 amoxicillin Allergy Swelling Verified 04/05/22 11:42 clonazepam [From Klonopin] Allergy Swelling Verified 04/05/22 11:42 codeine Allergy Rash/Hives Verified 04/05/22 11:42 hydrocodone Allergy Anaphylaxis Verified 04/05/22 11:42 imipramine Allergy Rash/Hives Verified 04/05/22 11:42 morphine Allergy Swelling Verified 04/05/22 11:42 ondansetron [From Zofran] Allergy Itching Verified 04/05/22 11:42 Penicillins Allergy Anaphylaxis Verified 04/05/22 11:42 sulfamethoxazole Allergy Swelling Verified 04/05/22 11:42 [From Bactrim] tramadol Allergy Itching Verified 04/05/22 11:42 trimethoprim [From Bactrim] Allergy Swelling Verified 04/05/22 11:42 Review of Systems ROS Statement: Those systems with pertinent positive or pertinent negative responses have been documented in the HPI. ROS Other: All systems not noted in ROS Statement are negative. Past Medical History Past Medical History: GERD/Reflux, Osteoarthritis (OA) Additional Past Medical History / Comment(s): ARTHRITIS PAIN IN KNEES, HIPS AND SHOULDER. History of Any Multi-Drug Resistant Organisms: None Reported Past Surgical History: Appendectomy, Cholecystectomy, Hysterectomy, Joint Replacement, Orthopedic Surgery Additional Past Surgical History / Comment(s): TOTAL LT SHOULDER. Shoulders bilat, Knees bilat., ANKLE SURGERY, EGD , COLONOSCOPY. Past Anesthesia/Blood Transfusion Reactions: No Reported Reaction, Motion Sickness Past Psychological History: Anxiety, Depression Smoking Status: Never smoker Past Alcohol Use History: None Reported Past Drug Use History: None Reported - Past Family History Mother Family Medical History: No Reported History General Exam Limitations: no limitations General appearance: alert, in no apparent distress Head exam: Present: atraumatic, normocephalic, normal inspection Eye exam: Present: normal appearance, PERRL, EOMI. Absent: scleral icterus, conjunctival injection, periorbital swelling Respiratory exam: Present: normal lung sounds bilaterally. Absent: respiratory distress, wheezes, rales, rhonchi, stridor Cardiovascular Exam: Present: regular rate, normal rhythm, normal heart sounds. Absent: systolic murmur, diastolic murmur, rubs, gallop, clicks GI/Abdominal exam: Present: soft, normal bowel sounds. Absent: distended, tenderness, guarding, rebound, rigid Extremities exam: Present: other (Left foot there is ecchymosis of the first MTP region, times palpation throughout this region no obvious deformity pedal pulses equal bilaterally) Skin exam: Present: warm, dry, intact, normal color. Absent: rash Course Vital Signs 04/05/22 11:37 Temperature 98.2 F Pulse Rate 75 Respiratory 18 Rate Blood Pressure 103/63 O2 Sat by Pulse 97 Oximetry Medical Decision Making - Medical Decision Making X-rays negative for acute fracture. Patient has a toe contusion patient was discharged in stable condition return parameters were discussed. Disposition Clinical Impression: Contusion of toe of left foot Disposition: HOME SELF-CARE Condition: Stable Instructions (If sedation given, give patient instructions): Foot Contusion (ED) Additional Instructions: Please return to the Emergency Department if symptoms worsen or any other concerns. Is patient prescribed a controlled substance at d/c from ED?: No Referrals: Brandt Moore DO [Primary Care Provider] - 1-2 days Time of Disposition: 12:49
[2022-04-05 12:56] VITALS: BP 107/61; PULSE 74
== END 2022-04-05 13:02 | disposition home or self-care (01) ==
LOC: EC 11:30
DX: S90.122A Contusion of left lesser toe(s) without damage to nail, initial encounter (principal); K21.9 Gastro-esophageal reflux disease without esophagitis; M19.90 Unspecified osteoarthritis, unspecified site; Z88.6 Allergy status to analgesic agent; Z88.1 Allergy status to other antibiotic agents; Z88.5 Allergy status to narcotic agent; Z88.8 Allergy status to other drugs, medicaments and biological substances; Z88.0 Allergy status to penicillin; Z88.2 Allergy status to sulfonamides; Z79.899 Other long term (current) drug therapy; Z79.82 Long term (current) use of aspirin; W18.49XA Other slipping, tripping and stumbling without falling, initial encounter
CPT/HCPCS: 99283

== ENCOUNTER → 2022-04-05 | Outpatient (CLI) | payer OTHER ==
--- NOTE | 2022-04-05 13:28 | XR ---
EXAMINATION TYPE: XR abdomen 1V DATE OF EXAM: 04/05/2022 COMPARISON: 12/09/2014 HISTORY: Pain TECHNIQUE: One view abdominal series FINDINGS: The osseous structures are intact. The bowel gas pattern is nonspecific. Surgical clips in the abdom en are noted and there is arthropathy of the hips and hypertrophic change of the spine. Retained feca l debris throughout the colon. Bowel gas pattern nonspecific. Lung bases clear. Calcifications in the pelvis likely vascular. Evidence of previous hernia repair surgery suggested. IMPRESSION: 1. Nonspecific abdomen. Correlate for constipation.
== END | disposition home or self-care (01) ==
LOC: RADXRMAIN 13:05
PROVIDERS: ATTEND Family Medicine
DX: R10.31 Right lower quadrant pain (principal)
CPT/HCPCS: 74018

== ENCOUNTER → 2022-05-02 | Outpatient (CLI) | payer OTHER ==
--- NOTE | 2022-05-02 13:08 | XR ---
EXAMINATION TYPE: XR toes LT DATE OF EXAM: 05/02/2022 COMPARISON: NONE HISTORY: Pain TECHNIQUE: Three views are submitted. FINDINGS: There is a subtle linear lucency along the medial cortex of the distal phalanx suspicious for subacut e to chronic hairline fracture. Arthropathy of the first MTP joint. Subtle periosteal reaction along the proximal phalanx. IMPRESSION: 1. There is a subtle linear lucency along the medial cortex of the distal phalanx with periosteal tj ction along the medial margin of the proximal phalanx. Suspicious for subacute to chronic hairline fr acture. 2. Arthropathy first MTP joint.
== END | disposition home or self-care (01) ==
LOC: RADXRMAIN 12:03
PROVIDERS: ATTEND Family Medicine
DX: M19.072 Primary osteoarthritis, left ankle and foot (principal)

== ENCOUNTER → 2022-11-29 | Outpatient (CLI) | payer OTHER ==
--- NOTE | 2022-11-29 10:29 | XR ---
EXAMINATION TYPE: XR shoulder limited bilateral DATE OF EXAM: 11/29/2022 COMPARISON: NONE HISTORY: Pain TECHNIQUE: Three views of each shoulder are submitted. FINDINGS: Left shoulder: There is widening of the AC joint likely chronic with postsurgical change compatible w ith shoulder replacement surgery. Right shoulder: There is postoperative change and chronic deformity of the right shoulder with diffus e osteopenia. No acute fracture or dislocation. IMPRESSION: 1. Bilateral postoperative change of the shoulder with no acute process identified. Chronic widening of the bilateral AC joints is present.
== END | disposition home or self-care (01) ==
LOC: RADXRMAIN 09:36
PROVIDERS: ATTEND Family Medicine
DX: M25.511 Pain in right shoulder (principal); M25.512 Pain in left shoulder; Z98.890 Other specified postprocedural states

== ENCOUNTER 2023-03-03 18:31 | Emergency (ER) | payer OTHER ==
[2023-03-03 18:35] VITALS: TEMP 98.7
--- NOTE | 2023-03-03 19:36 | XR ---
EXAMINATION TYPE: XR hand complete LT DATE OF EXAM: 03/03/2023 7:32 PM INDICATION: Patient age:Female; 57 years old; Reason for study: animal bite; [facility]. COMPARISON: None TECHNIQUE: Frontal, lateral and oblique views of the left hand were obtained. FINDINGS: Normal alignment of the visualized joints. No acute osseous pathology is identified. No e vidence of soft tissue swelling. No radiopaque foreign body. IMPRESSION: 1. No acute osseous pathology. 2. No radiopaque foreign body.
[2023-03-03] MEDS ORDERED: KETOROLAC 15 MG/ML 1 ML VIAL IM STA (19:52)
[2023-03-03] MEDS ORDERED: DOXYCYCLINE 100 MG CAP PO STA (19:52)
[2023-03-03] MEDS ORDERED: CLINDAMYCIN 150 MG CAP PO STA (19:52)
[2023-03-03] MEDS ORDERED: DIPH,PERTUS(ACELL)TETVAC-LF 0.5 ML VIAL IM ONE (19:52)
[2023-03-03] MEDS ORDERED: IBUPROFEN 600 MG STARTER PACK 4 TAB BTL PO STA (19:57)
--- NOTE | 2023-03-03 20:13 | ED ---
Animal Bite HPI - General Chief Complaint: Animal Bite Stated Complaint: Cat bite Time Seen by Provider: 03/03/23 19:14 Source: patient, RN notes reviewed Mode of arrival: ambulatory Limitations: no limitations - History of Present Illness Initial Comments: This is a 57-year-old female who presents to the emergency department for a cat bite to the right hand/wrist. States that her cat became frightened during the storm earlier today, and bit her hand and wrist. Her cat is up-to-date on all of its immunizations. States that this is very painful. Unsure when her last tetanus vaccine was. Denies any fevers, chills, sore throat, cough, dyspnea, chest pain, palpitations, abdominal pain, nausea, vomiting, diarrhea, back pain, or headache sSimi FARRAR Complaint: animal bite - Related Data Home Medications Medication Instructions Recorded Confirmed Escitalopram [Lexapro] 20 mg PO DAILY 04/12/14 09/27/21 Omeprazole [PriLOSEC] 20 mg PO BID 02/03/15 09/27/21 diphenhydrAMINE [Benadryl] 25 mg PO HS 09/01/15 09/27/21 Ascorbic Acid [Vitamin C chew] 500 mg PO BID 09/27/21 09/27/21 Aspirin 325 mg PO QID PRN 09/27/21 09/27/21 Calcium 600 Mg-D3 40mcg 1 tab PO BID 09/27/21 09/27/21 Cetirizine HCl [Zyrtec] 10 mg PO DAILY 09/27/21 09/27/21 Cholecalciferol [Vitamin D3 (125 125 mcg PO DAILY 09/27/21 09/27/21 Mcg = 5000 Iu)] Clindamycin [Cleocin] 450 mg PO BID 09/27/21 09/27/21 Docusate [Colace] 100 mg PO HS 09/27/21 09/27/21 Esomeprazole Magnesium [NexIUM 20 mg PO DAILY PRN 09/27/21 09/27/21 24Hr] Ibuprofen [Motrin] 800 mg PO TID PRN 09/27/21 09/27/21 Melatonin [Melatonin Dissolving 10 mg PO HS 09/27/21 09/27/21 Tablet] Previous Rx's Medication Instructions Recorded Ketorolac [Toradol] 10 mg PO Q6HR #15 tab 09/27/21 Doxycycline Hyclate 100 mg PO BID 10 Days #20 capsule 03/03/23 Ibuprofen [Motrin] 600 mg PO Q8HR PRN #30 tab 03/03/23 clindamycin HCL 300 mg PO TID 10 Days #30 capsule 03/03/23 Allergies Allergy/AdvReac Type Severity Reaction Status Date / Time acetaminophen [From Vicodin] Allergy Swelling Verified 03/03/23 18:35 amoxicillin Allergy Swelling Verified 03/03/23 18:35 clonazepam [From Klonopin] Allergy Swelling Verified 03/03/23 18:35 codeine Allergy Rash/Hives Verified 03/03/23 18:35 hydrocodone Allergy Anaphylaxis Verified 03/03/23 18:35 imipramine Allergy Rash/Hives Verified 03/03/23 18:35 morphine Allergy Swelling Verified 03/03/23 18:35 ondansetron [From Zofran] Allergy Itching Verified 03/03/23 18:35 Penicillins Allergy Anaphylaxis Verified 03/03/23 18:35 sulfamethoxazole Allergy Swelling Verified 03/03/23 18:35 [From Bactrim] tramadol Allergy Itching Verified 03/03/23 18:35 trimethoprim [From Bactrim] Allergy Swelling Verified 03/03/23 18:35 Review of Systems ROS Statement: Those systems with pertinent positive or pertinent negative responses have been documented in the HPI. ROS Other: All systems not noted in ROS Statement are negative. Past Medical History Past Medical History: GERD/Reflux, Osteoarthritis (OA) Additional Past Medical History / Comment(s): ARTHRITIS PAIN IN KNEES, HIPS AND SHOULDER. History of Any Multi-Drug Resistant Organisms: None Reported Past Surgical History: Appendectomy, Cholecystectomy, Hysterectomy, Joint Replacement, Orthopedic Surgery Additional Past Surgical History / Comment(s): TOTAL LT SHOULDER. Shoulders bilat, Knees bilat., ANKLE SURGERY, EGD , COLONOSCOPY. Past Anesthesia/Blood Transfusion Reactions: No Reported Reaction, Motion Sickness Past Psychological History: Anxiety, Depression Smoking Status: Never smoker Past Alcohol Use History: None Reported Past Drug Use History: None Reported - Past Family History Mother Family Medical History: No Reported History General Exam Limitations: no limitations General appearance: alert, in no apparent distress Head exam: Present: atraumatic, normocephalic, normal inspection Respiratory exam: Present: normal lung sounds bilaterally. Absent: respiratory distress, wheezes, rales, rhonchi, stridor Cardiovascular Exam: Present: regular rate, normal rhythm, normal heart sounds. Absent: systolic murmur, diastolic murmur, rubs, gallop, clicks Extremities exam: Present: other (2 puncture wounds to the dorsal aspect of the right wrist. Minor surrounding erythema, swelling, and tenderness.) Neurological exam: Present: alert, oriented X3, CN II-XII intact Psychiatric exam: Present: normal affect, normal mood Course Vital Signs 03/03/23 03/03/23 18:33 20:24 Temperature 98.7 F Pulse Rate 69 63 Respiratory 20 16 Rate Blood Pressure 100/64 106/64 O2 Sat by Pulse 99 99 Oximetry Medical Decision Making - Medical Decision Making This is a 57-year-old female who presents to the emergency department for a cat bite to the right wrist. Was pt. sent in by a medical professional or institution? @ -No Did you speak to anyone other than the patient for history? @ -No Did you review nursing and triage notes? @ -Yes, and I agree, it is accurate with regards to the patient's symptoms. Were old charts reviewed? @ -No Differential Diagnosis? @ -Not applicable EKG interpreted by me (3pts min.)? @ -Not obtained X-rays interpreted by me (1pt min.)? @ -X-ray of the right hand obtained. My interpretation identifies no foreign bodies. CT interpreted by me (1pt min.)? @ -Not obtained U/S interpreted by me (1pt. min.)? @ -Obtained What testing was considered but not performed? (CT, X-rays, U/S, labs)? Why? @ -None What meds were considered but not given? Why? @ -None Did you discuss the management of the patient with other professionals? @ -No Did you reconcile home meds? @ -No Was smoking cessation discussed for >3mins.? @ -No Was critical care preformed (if so, how long)? @ -No Were there social determinants of health that impacted care today? How? (Homelessness, low income, unemployed, alcoholism, drug addiction, transportation, low edu. Level, literacy, decrease access to med. care, group home, rehab)? @ -No Was there de-escalation of care discussed even if they declined? (Discuss DNR or withdrawal of care, Hospice)? @ -No What co-morbidities impacted this encounter? (DM, HTN, Smoking, COPD, CAD, Cancer, CVA, Hep., AIDS, mental health diagnosis, sleep apnea, morbid obesity)? @ -None Was patient admitted / discharged? @ -Discharged. X-ray of the right hand obtained revealing no evidence of any foreign bodies or other acute findings. Her hand was soaked in sterile water mixed with Betadine. Tetanus vaccine was updated. Patient is allergic to penicillins, and per current recommendations, she was instead put on a combination of doxycycline and clindamycin. Initial doses of medications administered in the emergency department. Rx for doxycycline and clindamycin provided with dosing instructions reviewed. She was also given a prescription for ibuprofen for further pain management. Advised that these bites do have a high risk of infection and she needs to watch them very closely and return to the emergency department with any fevers, increasing redness, or pain. Undiagnosed new problem with uncertain prognosis? @ -None Drug Therapy requiring intensive monitoring for toxicity (Heparin, Nitro, Insulin, Cardizem)? @ -None Were any procedures done? @ -None Diagnosis/symptom? @ -Cat bite Acute, or Chronic, or Acute on Chronic? @ -Acute Uncomplicated (without systemic symptoms) or Complicated (systemic symptoms)? @ -Uncomplicated Side effects of treatment? @ -None Exacerbation, Progression, or Severe Exacerbation] @ -Not applicable Poses a threat to life or bodily function? @ -No Return precautions reviewed in depth, the patient is instructed to return to the emergency department with any new, worsening, or concerning symptoms. Patient verbalized understanding. This case was discussed in detail with the attending ED physician, Dr. Mcbride. Presentation, findings, and treatment plan discussed in detail as well. - Radiology Data Radiology results: report reviewed, image reviewed Disposition Clinical Impression: Cat bite Disposition: HOME SELF-CARE Condition: Stable Instructions (If sedation given, give patient instructions): Animal Bite (ED) Additional Instructions: Return to the emergency department with any new, worsening, or concerning symptoms. Take both antibiotics as prescribed for 10 days. Take ibuprofen as needed for pain relief. Make sure you return if you develop increasing pain, redness, or fevers. Do not apply topical antibiotic ointment or creams, as this can prevent infection from being able to drain. Follow up with your primary care provider in 1-2 days. Prescriptions: clindamycin HCL 300 mg PO TID 10 Days #30 capsule Doxycycline Hyclate 100 mg PO BID 10 Days #20 capsule Ibuprofen [Motrin] 600 mg PO Q8HR PRN #30 tab PRN Reason: Pain Is patient prescribed a controlled substance at d/c from ED?: No Referrals: Brandt Moore DO [Primary Care Provider] - 1-2 days
[2023-03-03 20:26] VITALS: BP 106/64; PULSE 63; RESP 16
== END 2023-03-03 20:17 | disposition home or self-care (01) ==
LOC: EC 18:31
DX: S61.531A Puncture wound without foreign body of right wrist, initial encounter (principal); K21.9 Gastro-esophageal reflux disease without esophagitis; Z79.82 Long term (current) use of aspirin; F41.9 Anxiety disorder, unspecified; F32.A Depression, unspecified; Z79.899 Other long term (current) drug therapy; Z88.5 Allergy status to narcotic agent; Z88.6 Allergy status to analgesic agent; Z88.0 Allergy status to penicillin; Z88.2 Allergy status to sulfonamides; Z88.8 Allergy status to other drugs, medicaments and biological substances; Z23 Encounter for immunization; W55.01XA Bitten by cat, initial encounter
CPT/HCPCS: 73130; 90715; 99283; 96372; 90471; J1885

== ENCOUNTER 2023-05-11 12:23 | Emergency (ER) | payer OTHER ==
[2023-05-11 12:47] VITALS: PULSE 72
--- NOTE | 2023-05-11 13:30 | ED ---
Animal Bite HPI - General Chief Complaint: Animal Bite Stated Complaint: cat bite r wrist Time Seen by Provider: 05/11/23 13:15 Source: patient, RN notes reviewed Mode of arrival: ambulatory Limitations: no limitations - History of Present Illness Initial Comments: 57-year-old female presents emergency for chief complaint of Bite to her right forearm, wrist region. She states his happened last night by her. Her tetanus is up-to-date did Is vaccinated. Patient offers no complaints. - Related Data Home Medications Medication Instructions Recorded Confirmed Escitalopram [Lexapro] 20 mg PO DAILY 04/12/14 09/27/21 Omeprazole [PriLOSEC] 20 mg PO BID 02/03/15 09/27/21 diphenhydrAMINE [Benadryl] 25 mg PO HS 09/01/15 09/27/21 Ascorbic Acid [Vitamin C chew] 500 mg PO BID 09/27/21 09/27/21 Aspirin 325 mg PO QID PRN 09/27/21 09/27/21 Calcium 600 Mg-D3 40mcg 1 tab PO BID 09/27/21 09/27/21 Cetirizine HCl [Zyrtec] 10 mg PO DAILY 09/27/21 09/27/21 Cholecalciferol [Vitamin D3 (125 125 mcg PO DAILY 09/27/21 09/27/21 Mcg = 5000 Iu)] Clindamycin [Cleocin] 450 mg PO BID 09/27/21 09/27/21 Docusate [Colace] 100 mg PO HS 09/27/21 09/27/21 Esomeprazole Magnesium [NexIUM 20 mg PO DAILY PRN 09/27/21 09/27/21 24Hr] Ibuprofen [Motrin] 800 mg PO TID PRN 09/27/21 09/27/21 Melatonin [Melatonin Dissolving 10 mg PO HS 09/27/21 09/27/21 Tablet] Previous Rx's Medication Instructions Recorded Ketorolac [Toradol] 10 mg PO Q6HR #15 tab 09/27/21 Doxycycline Hyclate 100 mg PO BID 10 Days #20 capsule 03/03/23 Ibuprofen [Motrin] 600 mg PO Q8HR PRN #30 tab 03/03/23 clindamycin HCL 300 mg PO TID 10 Days #30 capsule 03/03/23 Doxycycline [Vibramycin] 100 mg PO BID #20 capsule 05/11/23 Allergies Allergy/AdvReac Type Severity Reaction Status Date / Time acetaminophen [From Vicodin] Allergy Swelling Verified 05/11/23 12:44 amoxicillin Allergy Swelling Verified 05/11/23 12:44 clonazepam [From Klonopin] Allergy Swelling Verified 05/11/23 12:44 codeine Allergy Rash/Hives Verified 05/11/23 12:44 hydrocodone Allergy Anaphylaxis Verified 05/11/23 12:44 imipramine Allergy Rash/Hives Verified 05/11/23 12:44 morphine Allergy Swelling Verified 05/11/23 12:44 ondansetron [From Zofran] Allergy Itching Verified 05/11/23 12:44 Penicillins Allergy Anaphylaxis Verified 05/11/23 12:44 sulfamethoxazole Allergy Swelling Verified 05/11/23 12:44 [From Bactrim] tramadol Allergy Itching Verified 05/11/23 12:44 trimethoprim [From Bactrim] Allergy Swelling Verified 05/11/23 12:44 Review of Systems ROS Statement: Those systems with pertinent positive or pertinent negative responses have been documented in the HPI. ROS Other: All systems not noted in ROS Statement are negative. Past Medical History Past Medical History: GERD/Reflux, Osteoarthritis (OA) Additional Past Medical History / Comment(s): ARTHRITIS PAIN IN KNEES, HIPS AND SHOULDER. History of Any Multi-Drug Resistant Organisms: None Reported Past Surgical History: Appendectomy, Cholecystectomy, Hysterectomy, Joint Replacement, Orthopedic Surgery Additional Past Surgical History / Comment(s): TOTAL LT SHOULDER. Shoulders bilat, Knees bilat., ANKLE SURGERY, EGD , COLONOSCOPY. Past Anesthesia/Blood Transfusion Reactions: No Reported Reaction, Motion Sickness Past Psychological History: Anxiety, Depression Smoking Status: Never smoker Past Alcohol Use History: None Reported Past Drug Use History: None Reported - Past Family History Mother Family Medical History: No Reported History General Exam Limitations: no limitations General appearance: alert, in no apparent distress Head exam: Present: atraumatic, normocephalic, normal inspection Eye exam: Present: normal appearance, PERRL, EOMI. Absent: scleral icterus, conjunctival injection, periorbital swelling ENT exam: Present: normal exam, normal oropharynx, mucous membranes moist Neck exam: Present: normal inspection, full ROM. Absent: tenderness, meningismus, lymphadenopathy Respiratory exam: Present: normal lung sounds bilaterally. Absent: respiratory distress, wheezes, rales, rhonchi, stridor Cardiovascular Exam: Present: regular rate, normal rhythm, normal heart sounds. Absent: systolic murmur, diastolic murmur, rubs, gallop, clicks Extremities exam: Present: other (Right forearm there is small puncture wound, surrounding erythema 1 cm) Course Vital Signs 05/11/23 05/11/23 12:41 13:52 Temperature 98.3 F 98 F Pulse Rate 72 72 Respiratory 20 16 Rate Blood Pressure 102/68 105/78 O2 Sat by Pulse 100 99 Oximetry Medical Decision Making - Medical Decision Making Was pt. sent in by a medical professional or institution (, JOSE ANGEL, ABSTRACT CLERK, urgent care, hospital, or residential...) When possible be specific @ -No Did you speak to anyone other than the patient for history (EMS, parent, family, police, friend...)? What history was obtained from this source @ -No Did you review nursing and triage notes (agree or disagree)? Why? @ -I reviewed and agree with nursing and triage notes Were old charts reviewed (outside hosp., previous admission, EMS record, old EKG, old radiological studies, urgent care reports/EKG's, residential records)? Report findings @ -No old charts were reviewed Differential Diagnosis (chest pain, altered mental status, abdominal pain women, abdominal pain men, vaginal bleeding, weakness, fever, dyspnea, syncope, headache, dizziness, GI bleed, back pain, seizure, CVA, palpatations, mental health, musculoskeletal)? @ -cat Bite, cellulitis EKG interpreted by me (3pts min.). @ -None X-rays interpreted by me (1pt min.). @ -None done CT interpreted by me (1pt min.). @ -None done U/S interpreted by me (1pt. min.). @ -None done What testing was considered but not performed or refused? (CT, X-rays, U/S, labs)? Why? @ -None What meds were considered but not given or refused? Why? @ -None Did you discuss the management of the patient with other professionals (professionals i.e. JOSE ANGEL Lobato, ABSTRACT CLERK, lab, RT, psych nurse, psychiatric social worker supervisor, instrument repair technician, teacher, crime prevention police officer, watch case polisher)? Give summary @ -No Was smoking cessation discussed for >3mins.? @ -No Was critical care preformed (if so, how long)? @ -No Were there social determinants of health that impacted care today? How? (Homelessness, low income, unemployed, alcoholism, drug addiction, transportation, low edu. Level, literacy, decrease access to med. care, half-way, rehab)? @ -No Was there de-escalation of care discussed even if they declined (Discuss DNR or withdrawal of care, Hospice)? DNR status @ -No What co-morbidities impacted this encounter? (DM, HTN, Smoking, COPD, CAD, Cancer, CVA, ARF, Chemo, Hep., AIDS, mental health diagnosis, sleep apnea, morbid obesity)? @ -None Was patient admitted / discharged? Hospital course, mention meds given and route, prescriptions, significant lab abnormalities, going to OR and other pertinent info. @ -Discharge patient was discharged on his doxycycline as she has no ALLERGY to penicillin. Patient is a Bite from her. Her tetanus is up-to-date patient is discharged in stable condition with return parameters Undiagnosed new problem with uncertain prognosis? @ -No Drug Therapy requiring intensive monitoring for toxicity (Heparin, Nitro, Insulin, Cardizem)? @ -No Were any procedures done? @ -No Diagnosis/symptom? @ -Bite right forearm Acute, or Chronic, or Acute on Chronic? @ -Acute Uncomplicated (without systemic symptoms) or Complicated (systemic symptoms)? @ -Uncomplicated Side effects of treatment? @ -No Exacerbation, Progression, or Severe Exacerbation? @ -No Poses a threat to life or bodily function? How? (Chest pain, [place], [place], pneumonia, PE, COPD, DKA, ARF, appy, cholecystitis, CVA, Diverticulitis, Homicidal, Suicidal, threat to staff... and all critical care pts) @ -No Disposition Clinical Impression: Cat bite Disposition: HOME SELF-CARE Condition: Stable Instructions (If sedation given, give patient instructions): Animal Bite (ED) Additional Instructions: Please return to the Emergency Department if symptoms worsen or any other concerns. Prescriptions: Doxycycline [Vibramycin] 100 mg PO BID #20 capsule Is patient prescribed a controlled substance at d/c from ED?: No Referrals: Brandt Moore DO [Primary Care Provider] - 1-2 days Time of Disposition: 13:30
[2023-05-11 14:00] VITALS: BP 105/78; RESP 16; TEMP 98
== END 2023-05-11 13:52 | disposition home or self-care (01) ==
LOC: EC 12:23
DX: S41.151A Open bite of right upper arm, initial encounter (principal); K21.9 Gastro-esophageal reflux disease without esophagitis; M19.90 Unspecified osteoarthritis, unspecified site; F41.9 Anxiety disorder, unspecified; F32.A Depression, unspecified; Z79.899 Other long term (current) drug therapy; Z79.1 Long term (current) use of non-steroidal anti-inflammatories (NSAID); Z79.82 Long term (current) use of aspirin; Z88.0 Allergy status to penicillin; Z88.2 Allergy status to sulfonamides; Z88.5 Allergy status to narcotic agent; Z88.1 Allergy status to other antibiotic agents; Z88.8 Allergy status to other drugs, medicaments and biological substances; Z90.49 Acquired absence of other specified parts of digestive tract; W55.01XA Bitten by cat, initial encounter
CPT/HCPCS: 99283

== ENCOUNTER 2023-07-14 09:52 | Emergency (ER) | payer OTHER ==
[2023-07-14 10:11] VITALS: RESP 18
[2023-07-14] MEDS ORDERED: KETOROLAC 15 MG/ML 1 ML VIAL IVP STA (10:43)
--- NOTE | 2023-07-14 10:44 | ED ---
General Adult HPI - General Chief complaint: Abdominal Pain Stated complaint: abd pain shaking and dizzy Time Seen by Provider: 07/14/23 10:13 Source: patient Mode of arrival: EMS Limitations: no limitations - History of Present Illness Initial comments: Dictation was produced using [employer] dictation software. please excuse any grammatical, word or spelling errors. Chief Complaint: 58-year-old female with abdominal pain History of Present Illness: This 58-year-old female she presents with lower abdominal pain. She denies any urinary symptoms. Symptoms have been ongoing for an hour. No history of diverticulitis. She states that the pain is in her suprapubic area slightly over to the left. Denies any diarrhea. She does com plain of some chills but denies any fevers. Patient has any history of bowel resection. She has history of appendectomy cholecystectomy and hysterectomy. The ROS documented in this emergency department record has been reviewed and confirmed by me. Those systems with pertinent positive or negative responses have been documented in the HPI. All other systems are other negative and/or noncontributory. - Related Data Home Medications Medication Instructions Recorded Confirmed Escitalopram [Lexapro] 20 mg PO DAILY 04/12/14 07/14/23 Omeprazole [PriLOSEC] 20 mg PO BID 02/03/15 07/14/23 Cetirizine HCl [Zyrtec] 10 mg PO HS 09/27/21 07/14/23 Previous Rx's Medication Instructions Recorded Ibuprofen [Motrin] 600 mg PO Q8HR PRN #30 tab 03/03/23 Allergies Allergy/AdvReac Type Severity Reaction Status Date / Time acetaminophen [From Vicodin] Allergy Swelling Verified 07/14/23 11:33 amoxicillin Allergy Swelling Verified 07/14/23 11:33 clonazepam [From Klonopin] Allergy Swelling Verified 07/14/23 11:33 codeine Allergy Rash/Hives Verified 07/14/23 11:33 hydrocodone Allergy Anaphylaxis Verified 07/14/23 11:33 imipramine Allergy Rash/Hives Verified 07/14/23 11:33 morphine Allergy Swelling Verified 07/14/23 11:33 ondansetron [From Zofran] Allergy Itching Verified 07/14/23 11:33 Penicillins Allergy Anaphylaxis Verified 07/14/23 11:33 sulfamethoxazole Allergy Swelling Verified 07/14/23 11:33 [From Bactrim] tramadol Allergy Itching Verified 07/14/23 11:33 trimethoprim [From Bactrim] Allergy Swelling Verified 07/14/23 11:33 Review of Systems ROS Statement: Those systems with pertinent positive or pertinent negative responses have been documented in the HPI. ROS Other: All systems not noted in ROS Statement are negative. Past Medical History Past Medical History: GERD/Reflux, Osteoarthritis (OA) Additional Past Medical History / Comment(s): ARTHRITIS PAIN IN KNEES, HIPS AND SHOULDER. History of Any Multi-Drug Resistant Organisms: None Reported Past Surgical History: Appendectomy, Cholecystectomy, Hysterectomy, Joint Replacement, Orthopedic Surgery Additional Past Surgical History / Comment(s): TOTAL LT SHOULDER. Shoulders bilat, Knees bilat., ANKLE SURGERY, EGD , COLONOSCOPY. Past Anesthesia/Blood Transfusion Reactions: No Reported Reaction, Motion Sickness Past Psychological History: Anxiety, Depression Smoking Status: Never smoker Past Alcohol Use History: None Reported Past Drug Use History: None Reported - Past Family History Mother Family Medical History: No Reported History General Exam - General Exam Comments Initial Comments: PHYSICAL EXAM: General Impression: Alert and oriented x3, not in acute distress HEENT: Normocephalic atraumatic, extra-ocular movements intact, pupils equal and reactive to light bilaterally, mucous membranes moist. Cardiovascular: Heart regular rate and rhythm Chest: Able to complete full sentences, no retractions, no tachypnea Abdomen: abdomen soft, palpatory tenderness to the lower abdomen, non-distended, no organomegaly Musculoskeletal: Pulses present and equal in all extremities, no peripheral edema Motor: no focal deficits noted Neurological: CN II-XII grossly intact, no focal motor or sensory deficits noted Skin: Intact with no visualized rashes Psych: Normal affect and mood Limitations: no limitations Course Vital Signs 07/14/23 09:58 Temperature 98.6 F Pulse Rate 70 Respiratory 18 Rate Blood Pressure 90/49 O2 Sat by Pulse 99 Oximetry Medical Decision Making - Medical Decision Making Was pt. sent in by a medical professional or institution (, PA, PELT INSPECTOR, urgent care, hospital, or jail...) When possible be specific @ -No Did you speak to anyone other than the patient for history (EMS, parent, family, police, friend...)? What history was obtained from this source @ -No Did you review nursing and triage notes (agree or disagree)? Why? @ -I reviewed and agree with nursing and triage notes Were old charts reviewed (outside hosp., previous admission, EMS record, old EKG, old radiological studies, urgent care reports/EKG's, jail records)? Report findings @ -No old charts were reviewed Differential Diagnosis (chest pain, altered mental status, abdominal pain women, abdominal pain men, vaginal bleeding, musculoskeletal, weakness, fever, dyspnea, syncope, headache, dizziness, GI bleed, back pain, seizure, CVA, palpatations, mental health)? @ -Differential Abdominal Pain Women: Appendicitis, Cholecystitis, diverticulosis, ischemic bowel, pancreatitis, hepatitis, UTI, gastroenteritis, AAA, incarcerated hernia, bowel obstruction, constipation, inflammatory bowel, hepatitis, peptic ulcer disease, splenic infarction, perforated viscus, vulvitis, ovarian torsion, PID, kidney stone, placenta abruption, this is not meant to be an all-inclusive list EKG interpreted by me (3pts min.). @ My EKG interpretation: Ventricular rate 61, sinus rhythm, OR interval 36, QRS 104, QTC 378. No OR prolongation, no QTC prolongation, no ST or T-wave changes noted. Overall, this EKG is unremarkable X-rays interpreted by me (1pt min.). @ -None done CT interpreted by me (1pt min.). @ -Computed tomography scan the abdomen and pelvis shows nonspecific enterocolitis U/S interpreted by me (1pt. min.). @ -None done What testing was considered but not performed or refused? (CT, X-rays, U/S, labs)? Why? @ -None What meds were considered but not given or refused? Why? @ -None Did you discuss the management of the patient with other professionals (professionals i.e. , PA, PELT INSPECTOR, lab, RT, psych nurse, social and political studies professor, corporate lawyer, teacher, chief business officer, manager rn case)? Give summary @ -No Was smoking cessation discussed for >3mins.? @ -No Was critical care preformed (if so, how long)? @ -No Were there social determinants of health that impacted care today? How? (Homelessness, low income, unemployed, alcoholism, drug addiction, transportation, low edu. Level, literacy, decrease access to med. care, snf, rehab)? @ -No Was there de-escalation of care discussed even if they declined (Discuss DNR or withdrawal of care, Hospice)? DNR status @ -No What co-morbidities impacted this encounter? (DM, HTN, Smoking, COPD, CAD, Cancer, CVA, ARF, Chemo, Hep., AIDS, mental health diagnosis, sleep apnea, morbid obesity)? @ -None Was patient admitted / discharged? Hospital course, mention meds given and route, prescriptions, significant lab abnormalities, going to OR and other pertinent info. @ -58-year-old female presents emergency department for acute onset abdominal symptoms to the lower abdomen. Vital signs stable. Patient well-appearing at the bedside. Laboratory evaluation is unremarkable. CT shows nonspecific enterocolitis. Patient reevaluated bedside at 12:40 PM onto be in stable medical condition. Patient is well-appearing and is agreeable for discharge. She is told to follow-up with primary care doctor if her symptoms do not resolve. Otherwise patient encouraged to return to emergency department if her symptoms becomes severe. Undiagnosed new problem with uncertain prognosis? @ -No Drug Therapy requiring intensive monitoring for toxicity (Heparin, Nitro, Insulin, Cardizem)? @ -No Were any procedures done? @ -No Diagnosis/symptom? Acute, or Chronic, or Acute on Chronic? Uncomplicated (without systemic symptoms) or Complicated (systemic symptoms)? @ -Enteritis Side effects of treatment? @ -No Exacerbation, Progression, or Severe Exacerbation? @ -No Poses a threat to life or bodily function? How? (Chest pain, [place], [place], pneumonia, PE, COPD, DKA, ARF, appy, cholecystitis, CVA, Diverticulitis, Homicidal, Suicidal, threat to staff... and all critical care pts) @ -No - Lab Data Result diagrams: 07/14/23 10:39 07/14/23 10:39 Lab Results 07/14/23 07/14/23 07/14/23 Range/Units 10:39 10:39 10:39 WBC 8.5 (3.8-10.6) k/uL RBC 4.32 (3.80-5.40) m/uL Hgb 13.8 (11.4-16.0) gm/dL Hct 40.7 (34.0-46.0) % MCV 94.3 (80.0-100.0) fL MCH 31.9 (25.0-35.0) pg MCHC 33.8 (31.0-37.0) g/dL RDW 12.5 (11.5-15.5) % Plt Count 199 (150-450) k/uL MPV 8.0 Neutrophils % 79 % Lymphocytes % 13 % Monocytes % 7 % Eosinophils % 1 % Basophils % 0 % Neutrophils # 6.7 (1.3-7.7) k/uL Lymphocytes # 1.1 (1.0-4.8) k/uL Monocytes # 0.6 (0-1.0) k/uL Eosinophils # 0.0 (0-0.7) k/uL Basophils # 0.0 (0-0.2) k/uL Sodium 137 (137-145) mmol/L Potassium 3.7 (3.5-5.1) mmol/L Chloride 101 (98-107) mmol/L Carbon Dioxide 26 (22-30) mmol/L Anion Gap 10 mmol/L BUN 12 (7-17) mg/dL Creatinine 0.63 (0.52-1.04) mg/dL Est GFR (CKD-EPI)AfAm >90 (>60 ml/min/1.73 sqM) Est GFR (CKD-EPI)NonAf >90 (>60 ml/min/1.73 sqM) Glucose 97 (74-99) mg/dL Plasma Lactic Acid Keny (0.7-2.0) mmol/L Calcium 9.2 (8.4-10.2) mg/dL Total Bilirubin 0.6 (0.2-1.3) mg/dL AST 25 (14-36) U/L ALT 13 (4-34) U/L Alkaline Phosphatase 64 (38-126) U/L Total Protein 7.3 (6.3-8.2) g/dL Albumin 4.3 (3.5-5.0) g/dL Urine Color Yellow Urine Appearance Clear (Clear) Urine pH 7.0 (5.0-8.0) Ur Specific [place] 1.015 (1.001-1.035) Urine Protein Negative (Negative) Urine Glucose (UA) Negative (Negative) Urine Ketones Negative (Negative) Urine Blood Negative (Negative) Urine Nitrite Negative (Negative) Urine Bilirubin Negative (Negative) Urine Urobilinogen 0.2 (<2.0) mg/dL Ur Leukocyte Esterase Negative (Negative) 07/14/23 Range/Units 10:39 WBC (3.8-10.6) k/uL RBC (3.80-5.40) m/uL Hgb (11.4-16.0) gm/dL Hct (34.0-46.0) % MCV (80.0-100.0) fL MCH (25.0-35.0) pg MCHC (31.0-37.0) g/dL RDW (11.5-15.5) % Plt Count (150-450) k/uL MPV Neutrophils % % Lymphocytes % % Monocytes % % Eosinophils % % Basophils % % Neutrophils # (1.3-7.7) k/uL Lymphocytes # (1.0-4.8) k/uL Monocytes # (0-1.0) k/uL Eosinophils # (0-0.7) k/uL Basophils # (0-0.2) k/uL Sodium (137-145) mmol/L Potassium (3.5-5.1) mmol/L Chloride (98-107) mmol/L Carbon Dioxide (22-30) mmol/L Anion Gap mmol/L BUN (7-17) mg/dL Creatinine (0.52-1.04) mg/dL Est GFR (CKD-EPI)AfAm (>60 ml/min/1.73 sqM) Est GFR (CKD-EPI)NonAf (>60 ml/min/1.73 sqM) Glucose (74-99) mg/dL Plasma Lactic Acid Keny 1.2 (0.7-2.0) mmol/L Calcium (8.4-10.2) mg/dL Total Bilirubin (0.2-1.3) mg/dL AST (14-36) U/L ALT (4-34) U/L Alkaline Phosphatase (38-126) U/L Total Protein (6.3-8.2) g/dL Albumin (3.5-5.0) g/dL Urine Color Urine Appearance (Clear) Urine pH (5.0-8.0) Ur Specific [place] (1.001-1.035) Urine Protein (Negative) Urine Glucose (UA) (Negative) Urine Ketones (Negative) Urine Blood (Negative) Urine Nitrite (Negative) Urine Bilirubin (Negative) Urine Urobilinogen (<2.0) mg/dL Ur Leukocyte Esterase (Negative) Disposition Clinical Impression: Enteritis Disposition: HOME SELF-CARE Condition: Good Instructions (If sedation given, give patient instructions): Enteritis (ED) Is patient prescribed a controlled substance at d/c from ED?: No Referrals: Brandt Moore DO [Primary Care Provider] - 1-2 days Time of Disposition: 12:42
[2023-07-14 10:58] LABS: Basophils % (A) 0 %; Eosinophils % (A) 1 %; HCT 40.7 % (34.0-46.0); HGB 13.8 gm/dL (11.4-16.0); Lymphocytes # (A) 1.1 k/uL (1.0-4.8); Lymphocytes % (A) 13 %; MCH 31.9 pg (25.0-35.0); MCHC 33.8 g/dL (31.0-37.0); MCV 94.3 fL (80.0-100.0); Monocytes # (A) 0.6 k/uL (0-1.0); Monocytes % (A) 7 %; Neutrophils # (A) 6.7 k/uL (1.3-7.7); Neutrophils % (A) 79 %; Platelet Count 199 k/uL (150-450); RBC 4.32 m/uL (3.80-5.40); RDW 12.5 % (11.5-15.5); WBC 8.5 k/uL (3.8-10.6)
[2023-07-14 11:12] LABS: ALT 13 U/L (4-34); African American GFR (CKD) >90 (>60 ml/min/1.73 sqM); Albumin 4.3 g/dL (3.5-5.0); Anion Gap 10 mmol/L; Blood Urea Nitrogen 12 mg/dL (7-17); Calcium 9.2 mg/dL (8.4-10.2); Carbon Dioxide 26 mmol/L (22-30); Chloride 101 mmol/L (98-107); Glucose 97 mg/dL (74-99); Non-African American GFR(CKD) >90 (>60 ml/min/1.73 sqM); Sodium 137 mmol/L (137-145); Total Bilirubin 0.6 mg/dL (0.2-1.3); Total Protein 7.3 g/dL (6.3-8.2)
[2023-07-14 11:20] LABS: AST 25 U/L (14-36); Alkaline Phosphatase 64 U/L (38-126); Potassium 3.7 mmol/L (3.5-5.1)
--- NOTE | 2023-07-14 11:29 | CT ---
EXAMINATION TYPE: CT abdomen pelvis w con DATE OF EXAM: 07/14/2023 COMPARISON: 08/13/2011 HISTORY: 58 year-old female lower abdominal pain TECHNIQUE: Contiguous axial scanning of the abdomen and pelvis following administration of 100 ml Iso patricia 300 IV contrast. Delayed images through the kidneys and coronal/sagittal reconstructions perform ed. CT DLP: 780.6 mGycm Automated exposure control for dose reduction was used. FINDINGS: LUNG BASES: No significant abnormality is appreciated. LIVER/GB: Cholecystectomy clips. No significant abnormality is appreciated. PANCREAS: No significant abnormality is seen. SPLEEN: No significant abnormality is seen. ADRENALS: No significant abnormality is seen. KIDNEYS: 1.7 cm cortical cyst posterior right kidney. No significant abnormality is seen. BOWEL: No dilated small bowel. However, there are some prominent small bowel loops in the distal ileu m as well as mild fold thickening of the cecum and prominent fluid here as well. There may be mild wa ll thickening and mucosal hyperemia involving a segment of the mid transverse colon, coronal image 32 and axial image 57. Moderate stool within the left hemicolon with redundant sigmoid colon. Surgical clips at the right lower quadrant related to prior appendectomy. LYMPH NODES: No suspicious greater than 1 cm lymph node is identified. OTHER: Previous ventral abdominal wall mesh repair. PELVIS: Bladder collapse but with mild circumferential wall thickening. Multiple pelvic phleboliths. Uterus surgically absent. Both ovaries are visualized. No abnormal fluid collection in pelvis or pelv ic lymphadenopathy. BONES: Mild degenerative disc disease lower thoracic spine. IMPRESSION: 1. PROMINENT FLUID WITHIN THE CECUM AND DISTAL ILEUM AND SOME CIRCUMFERENTIAL WALL THICKENING INVOLVI NG THE MID TRANSVERSE COLON. CONSIDER A NONSPECIFIC ENTEROCOLITIS. 2. MILD CIRCUMFERENTIAL BLADDER WALL THICKENING MAY BE CHRONIC FOR THE PATIENT. CORRELATE TO EXCLUDE CYSTITIS. 3. PATIENT IS STATUS POST CHOLECYSTECTOMY AND APPENDECTOMY. MODERATE STOOL IN THE LEFT SIDE OF THE CO MEET. MARKEDLY REDUNDANT SIGMOID COLON.
[2023-07-14 12:12] LABS: Appearance,Urine Clear (Clear); Bilirubin,Urine Negative (Negative); Blood,Urine Negative (Negative); Color,Urine Yellow; Glucose,Urine (UA) Negative (Negative); Ketones,Urine Negative (Negative); Leukocyte Esterase,Urine Negative (Negative); Nitrite,Urine Negative (Negative); Protein,Urine Negative (Negative); Specific Gravity,Urine 1.015 (1.001-1.035); Urobilinogen,Urine 0.2 mg/dL (<2.0)
[2023-07-14 13:52] VITALS: BP 100/52; PULSE 67; TEMP 98.5
== END 2023-07-14 13:38 | disposition home or self-care (01) ==
LOC: EC 09:52
DX: K52.9 Noninfective gastroenteritis and colitis, unspecified (principal); F41.9 Anxiety disorder, unspecified; F32.A Depression, unspecified; K21.9 Gastro-esophageal reflux disease without esophagitis; Z88.1 Allergy status to other antibiotic agents; Z79.899 Other long term (current) drug therapy; Z88.0 Allergy status to penicillin; Z88.2 Allergy status to sulfonamides; Z88.5 Allergy status to narcotic agent; Z88.8 Allergy status to other drugs, medicaments and biological substances
CPT/HCPCS: 36415; 80053; 83605; 85025; 81003; 74177; 99284; 96374; J1885; Q9967

== ENCOUNTER 2023-10-16 10:48 | Emergency (ER) | payer OTHER ==
--- NOTE | 2023-10-16 11:30 | ED ---
Lower Extremity Injury HPI - General Chief Complaint: Extremity Injury, Lower Stated Complaint: R Foot Injury Time Seen by Provider: 10/16/23 11:09 Source: patient, RN notes reviewed Mode of arrival: ambulatory Limitations: no limitations - History of Present Illness Initial Comments: This is a 58-year-old female who presents to the emergency department for an injury to the right pinky toe. States that she stubbed her toe on a box 4 days ago. She is still able to bear weight, but is concerned about the bruising and swelling. She takes ibuprofen and aspirin as needed, which is helpful. - Related Data Home Medications Medication Instructions Recorded Confirmed Escitalopram [Lexapro] 20 mg PO DAILY 04/12/14 07/14/23 Omeprazole [PriLOSEC] 20 mg PO BID 02/03/15 07/14/23 Cetirizine HCl [Zyrtec] 10 mg PO HS 09/27/21 07/14/23 Previous Rx's Medication Instructions Recorded Ibuprofen [Motrin] 600 mg PO Q8HR PRN #30 tab 03/03/23 Allergies Allergy/AdvReac Type Severity Reaction Status Date / Time acetaminophen [From Vicodin] Allergy Swelling Verified 07/14/23 11:33 amoxicillin Allergy Swelling Verified 07/14/23 11:33 clonazepam [From Klonopin] Allergy Swelling Verified 07/14/23 11:33 codeine Allergy Rash/Hives Verified 07/14/23 11:33 hydrocodone Allergy Anaphylaxis Verified 07/14/23 11:33 imipramine Allergy Rash/Hives Verified 07/14/23 11:33 morphine Allergy Swelling Verified 07/14/23 11:33 ondansetron [From Zofran] Allergy Itching Verified 07/14/23 11:33 Penicillins Allergy Anaphylaxis Verified 07/14/23 11:33 sulfamethoxazole Allergy Swelling Verified 07/14/23 11:33 [From Bactrim] tramadol Allergy Itching Verified 07/14/23 11:33 trimethoprim [From Bactrim] Allergy Swelling Verified 07/14/23 11:33 Review of Systems ROS Statement: Those systems with pertinent positive or pertinent negative responses have been documented in the HPI. ROS Other: All systems not noted in ROS Statement are negative. Past Medical History Past Medical History: GERD/Reflux, Osteoarthritis (OA) Additional Past Medical History / Comment(s): ARTHRITIS PAIN IN KNEES, HIPS AND SHOULDER. History of Any Multi-Drug Resistant Organisms: None Reported Past Surgical History: Appendectomy, Cholecystectomy, Hysterectomy, Joint R eplacement, Orthopedic Surgery Additional Past Surgical History / Comment(s): TOTAL LT SHOULDER. Shoulders bilat, Knees bilat., ANKLE SURGERY, EGD , COLONOSCOPY. Past Anesthesia/Blood Transfusion Reactions: No Reported Reaction, Motion Sickness Past Psychological History: Anxiety, Depression Smoking Status: Never smoker Past Alcohol Use History: None Reported Past Drug Use History: None Reported - Past Family History Mother Family Medical History: No Reported History General Exam Limitations: no limitations General appearance: alert, in no apparent distress Head exam: Present: atraumatic, normocephalic, normal inspection Respiratory exam: Present: normal lung sounds bilaterally. Absent: respiratory distress, wheezes, rales, rhonchi, stridor Cardiovascular Exam: Present: regular rate, normal rhythm, normal heart sounds. Absent: systolic murmur, diastolic murmur, rubs, gallop, clicks Extremities exam: Present: other (Mild ecchymosis to the right fifth toe. Full range of motion. No obvious tenderness.) Neurological exam: Present: alert, oriented X3, CN II-XII intact Psychiatric exam: Present: normal affect, normal mood Course Vital Signs 10/16/23 10/16/23 10:55 12:26 Temperature 98.6 F 98.4 F Pulse Rate 72 76 Respiratory 16 18 Rate Blood Pressure 90/50 121/68 O2 Sat by Pulse 98 99 Oximetry Medical Decision Making - Medical Decision Making This is a 58 year old female who presents to the emergency department for an injury to the toe. Was pt. sent in by a medical professional or institution? @ -No Did you speak to anyone other than the patient for history? @ -No Did you review nursing and triage notes? @ -Yes, and I agree, it is accurate with regards to the patient's symptoms. Were old charts reviewed? @ -No Differential Diagnosis? @ -Differential Musculoskeletal Muscular strain, contusion, ligament sprain, fracture, arthritis, septic arthritis, bursitis, cellulitis, muscle spasm, nerve compression, DVT, arterial occlusion, herpes zoster, electrolyte abnormality, tumor.... This is not meant to be in all inclusive list EKG interpreted by me (3pts min.)? @ -Not obtained X-rays interpreted by me (1pt min.)? @ -X-ray of the right fifth toe obtained. My interpretation identifies no acute fractures. CT interpreted by me (1pt min.)? @ -Not obtained U/S interpreted by me (1pt. min.)? @ -Not obtained What testing was considered but not performed? (CT, X-rays, U/S, labs)? Why? @ -None What meds were considered but not given? Why? @ -None Did you discuss the management of the patient with other professionals? @ -No Did you reconcile home meds? @ -No Was smoking cessation discussed for >3mins.? @ -No Was critical care preformed (if so, how long)? @ -No Were there social determinants of health that impacted care today? How? (Homelessness, low income, unemployed, alcoholism, drug addiction, transportation, low edu. Level, literacy, decrease access to med. care, retirement, rehab)? @ -No Was there de-escalation of care discussed even if they declined? (Discuss DNR or withdrawal of care, Hospice)? @ -No What co-morbidities impacted this encounter? (DM, HTN, Smoking, COPD, CAD, Cancer, CVA, Hep., AIDS, mental health diagnosis, sleep apnea, morbid obesity)? @ -Osteoarthritis Was patient admitted / discharged? @ -Discharged. X-ray of the right fifth toe obtained demonstrating no acute process. Advised that this is likely a contusion and she can continue with Ibuprofen as needed for pain relief. Patient discharged home in stable condition. Undiagnosed new problem with uncertain prognosis? @ -None Drug Therapy requiring intensive monitoring for toxicity (Heparin, Nitro, Insulin, Cardizem)? @ -None Were any procedures done? @ -None Diagnosis/symptom? @ -Toe contusion Acute, or Chronic, or Acute on Chronic? @ -Acute Uncomplicated (without systemic symptoms) or Complicated (systemic symptoms)? @ -Uncomplicated Side effects of treatment? @ -None Exacerbation, Progression, or Severe Exacerbation] @ -Not applicable Poses a threat to life or bodily function? @ -No Return precautions reviewed in depth, the patient is instructed to return to the emergency department with any new, worsening, or concerning symptoms. Patient verbalized understanding. This case was discussed in detail with the attending ED physician, Dr. Resendiz. Presentation, findings, and treatment plan discussed in detail as well. - Radiology Data Radiology results: report reviewed, image reviewed Disposition Clinical Impression: Toe contusion Disposition: HOME SELF-CARE Additional Instructions: Return to the emergency department with any new, worsening, or concerning symptoms. Take Ibuprofen as needed for pain relief. Follow up with your primary care provider in 1-2 days. Is patient prescribed a controlled substance at d/c from ED?: No Referrals: Brandt Moore DO [Primary Care Provider] - 1-2 days Time of Disposition: 12:14
--- NOTE | 2023-10-16 12:08 | XR ---
EXAMINATION TYPE: XR toes RT DATE OF EXAM: 10/16/2023 11:34 AM CLINICAL INDICATION:Female, 58 years old with history of Pinky toe injury; [facility] COMPARISON: 02/23/2015 TECHNIQUE: XR toes RT examined in the AP, oblique, and lateral projections. FINDINGS: No evidence of any acute osseous pathology. No evidence of soft tissue swelling. Joints are preserve d. Incidental note is made of symphalangism of the fifth distal interphalangeal joint. IMPRESSION: No evidence of acute fracture.
[2023-10-16 12:56] VITALS: BP 121/68; PULSE 76; RESP 18; TEMP 98.4
== END 2023-10-16 12:41 | disposition home or self-care (01) ==
LOC: EC 10:48
DX: S90.121A Contusion of right lesser toe(s) without damage to nail, initial encounter (principal); W22.8XXA Striking against or struck by other objects, initial encounter
CPT/HCPCS: 99283

== ENCOUNTER 2023-10-24 18:53 | Emergency (ER) | payer OTHER ==
--- NOTE | 2023-10-24 19:19 | ED ---
Extremity Problem HPI - General Source: patient, RN notes reviewed Mode of arrival: ambulatory Limitations: no limitations <Chanel Clayton - Last Filed: 10/24/23 19:18> <Ronak Nunez - Last Filed: 10/24/23 21:19> - General Stated complaint: left knee pain Time Seen by Provider: 10/24/23 19:18 - History of Present Illness Initial comments: Quick note: Patient is a 58-year-old female presented to ER with chief complaint of right knee pain. Denies any known injuries or paresthesias. Patient is able to walk. (Chanel Clayton) 58-year-old female presenting to the ED with a chief complaint of knee pain. Patient states approximately 3 days ago her left knee started to hurt. Denies any injury. States that she has been taking Tylenol at home with good relief of pain. No swelling of her leg. No chest pain or shortness of breath. No other complaints at this time. (Ronak Nunez) - Related Data Home Medications Medication Instructions Recorded Confirmed Escitalopram [Lexapro] 20 mg PO DAILY 04/12/14 07/14/23 Omeprazole [PriLOSEC] 20 mg PO BID 02/03/15 07/14/23 Cetirizine HCl [Zyrtec] 10 mg PO HS 09/27/21 07/14/23 Previous Rx's Medication Instructions Recorded Ibuprofen [Motrin] 600 mg PO Q8HR PRN #30 tab 03/03/23 Allergies Allergy/AdvReac Type Severity Reaction Status Date / Time acetaminophen [From Vicodin] Allergy Swelling Verified 10/24/23 19:20 amoxicillin Allergy Swelling Verified 10/24/23 19:20 clonazepam [From Klonopin] Allergy Swelling Verified 10/24/23 19:20 codeine Allergy Rash/Hives Verified 10/24/23 19:20 hydrocodone Allergy Anaphylaxis Verified 10/24/23 19:20 imipramine Allergy Rash/Hives Verified 10/24/23 19:20 morphine Allergy Swelling Verified 10/24/23 19:20 ondansetron [From Zofran] Allergy Itching Verified 10/24/23 19:20 Penicillins Allergy Anaphylaxis Verified 10/24/23 19:20 sulfamethoxazole Allergy Swelling Verified 10/24/23 19:20 [From Bactrim] tramadol Allergy Itching Verified 10/24/23 19:20 trimethoprim [From Bactrim] Allergy Swelling Verified 10/24/23 19:20 Review of Systems ROS Other: All systems not noted in ROS Statement are negative. <Chanel Clayton - Last Filed: 10/24/23 19:18> ROS Other: All systems not noted in ROS Statement are negative. <Ronak Nunez - Last Filed: 10/24/23 21:19> ROS Statement: Those systems with pertinent positive or pertinent negative responses have been documented in the HPI. Past Medical History Past Medical History: GERD/Reflux, Osteoarthritis (OA) Additional Past Medical History / Comment(s): ARTHRITIS PAIN IN KNEES, HIPS AND SHOULDER. History of Any Multi-Drug Resistant Organisms: None Reported Past Surgical History: Appendectomy, Cholecystectomy, Hysterectomy, Joint Replacement, Orthopedic Surgery Additional Past Surgical History / Comment(s): TOTAL LT SHOULDER. Shoulders bilat, Knees bilat., ANKLE SURGERY, EGD , COLONOSCOPY. Past Anesthesia/Blood Transfusion Reactions: No Reported Reaction, Motion Sickness Past Psychological History: Anxiety, Depression Smoking Status: Never smoker Past Alcohol Use History: None Reported Past Drug Use History: None Reported - Past Family History Mother Family Medical History: No Reported History <Chanel Clayton - Last Filed: 10/24/23 19:18> General Exam <Chanel Clayton - Last Filed: 10/24/23 19:18> General appearance: alert, in no apparent distress Head exam: Present: atraumatic, normocephalic Eye exam: Present: normal appearance Neck exam: Present: normal inspection Respiratory exam: Present: normal lung sounds bilaterally Cardiovascular Exam: Present: regular rate, normal rhythm GI/Abdominal exam: Present: soft Extremities exam: Present: other (Full passive range of motion of the left knee difficulty. Strength and sensation equal and intact to bilateral lower extremities. No pitting edema of the bilateral lower extremity. DP/PT pulses palpable. No skin changes overlying left lower extremity.) Neurological exam: Present: alert, oriented X3 Skin exam: Present: warm, dry <Ronak Nunez - Last Filed: 10/24/23 21:19> - General Exam Comments Initial Comments: Visual Physical Exam Vital signs reviewed General: Well-appearing, nontoxic, no acute distress. Head: Normocephalic, atraumatic Eyes: PERRLA, EOMI ENT: Airway patent Chest: Nonlabored breathing Skin: No visual rash, normal skin tone Neuro: Alert and oriented 3 Musculoskeletal: No gross abnormalities, walking with a limp (Chanel Clayton) Course Vital Signs 10/24/23 19:18 Temperature 98.3 F Pulse Rate 76 Respiratory 18 Rate Blood Pressure 104/68 O2 Sat by Pulse 98 Oximetry Medical Decision Making <Chanel Clayton - Last Filed: 10/24/23 19:18> <Ronak Nunez - Last Filed: 10/24/23 21:19> - Medical Decision Making I performed the quick note portion of this chart. Electronically signed by Chanel Clayton PA-C (Chanel Clayton) Was pt. sent in by a medical professional or institution ([facility], [facility] [employer] [facility], urgent care, hospital, or residential...) When possible be specific @ -No Did you speak to anyone other than the patient for history (EMS, parent, family, police, friend...)? What history was obtained from this source @ -No Did you review nursing and triage notes (agree or disagree)? Why? @ -I reviewed and agree with nursing and triage notes Were old charts reviewed (outside hosp., previous admission, EMS record, old EKG, old radiological studies, urgent care reports/EKG's, residential records)? Report findings @ -No old charts were reviewed Differential Diagnosis (chest pain, altered mental status, abdominal pain women, abdominal pain men, vaginal bleeding, weakness, fever, dyspnea, syncope, headache, dizziness, GI bleed, back pain, seizure, CVA, palpatations, mental health, musculoskeletal)? @ -Differential Musculoskeletal Muscular strain, contusion, ligament sprain, fracture, arthritis, septic arthritis, bursitis, cellulitis, muscle spasm, nerve compression, DVT, arterial occlusion, herpes zoster, electrolyte abnormality, tumor.... This is not meant to be in all inclusive list EKG interpreted by me (3pts min.). @ -None X-rays interpreted by me (1pt min.). @ -X-ray of the left knee interpreted by me which shows no evidence of acute fracture or dislocation. Does show small suprapatellar effusion. CT interpreted by me (1pt min.). @ -None done U/S interpreted by me (1pt. min.). @ -None done What testing was considered but not performed or refused? (CT, X-rays, U/S, labs)? Why? @ -None What meds were considered but not given or refused? Why? @ -None Did you discuss the management of the patient with other professionals (raul elizabeth i.e. , PA, [facility], lab, RT, psych nurse, social group worker, boatbuilder wood, teacher, gift officer, shoe caser)? Give summary @ -No Was smoking cessation discussed for >3mins.? @ -No Was critical care preformed (if so, how long)? @ -No Were there social determinants of health that impacted care today? How? (Homelessness, low income, unemployed, alcoholism, drug addiction, transportation, low edu. Level, literacy, decrease access to med. care, senior care, rehab)? @ -No Was there de-escalation of care discussed even if they declined (Discuss DNR or withdrawal of care, Hospice)? DNR status @ -No What co-morbidities impacted this encounter? (DM, HTN, Smoking, COPD, CAD, Cancer, CVA, ARF, Chemo, Hep., AIDS, mental health diagnosis, sleep apnea, morbid obesity)? @ -None Was patient admitted / discharged? Hospital course, mention meds given and route, prescriptions, significant lab abnormalities, going to OR and other pertinent info. @ -Discharge 58-year-old female presented to the ED with a chief complaint of left knee pain onset 3 to 4 days ago. Denies any known injury. On examination full passive range of motion without difficulties. No pitting edema of the left lower e xtremity. DP/PT pulses palpable. No overlying skin changes. X-ray shows no evidence of acute fracture or dislocation. Does show small suprapatellar effusion. Patient provided Toradol here in the ED with significant improvement of pain. Patient discharged home in stable condition with instructions to follow-up with her PCP. Undiagnosed new problem with uncertain prognosis? @ -No Drug Therapy requiring intensive monitoring for toxicity (Heparin, Nitro, Insulin, Cardizem)? @ -No Were any procedures done? @ -No Diagnosis/symptom? @ -Left knee pain Acute, or Chronic, or Acute on Chronic? @ -Acute Uncomplicated (without systemic symptoms) or Complicated (systemic symptoms)? @ -Uncomplicated Side effects of treatment? @ -No Exacerbation, Progression, or Severe Exacerbation? @ -No Poses a threat to life or bodily function? How? (Chest pain, [place], [place], pneumonia, PE, COPD, DKA, ARF, appy, cholecystitis, CVA, Diverticulitis, Homicidal, Suicidal, threat to staff... and all critical care pts) @ -No (Ronak Nunez) Disposition <Chanel Clayton - Last Filed: 10/24/23 19:18> Is patient prescribed a controlled substance at d/c from ED?: No Time of Disposition: 21:19 <Ronak Nunez - Last Filed: 10/24/23 21:19> Clinical Impression: Left knee pain Disposition: HOME SELF-CARE Condition: Good Instructions (If sedation given, give patient instructions): Knee Pain (ED) Additional Instructions: Please return to the Emergency Department if symptoms worsen or any other concerns. Please follow-up with your primary care provider. Referrals: Brandt Moore DO [Primary Care Provider] - 1-2 days
[2023-10-24 20:18] VITALS: BP 104/68; PULSE 76; RESP 18; TEMP 98.3
[2023-10-24] MEDS: KETOROLAC 15 MG/ML 1 ML VIAL IM STA (20:41)
--- NOTE | 2023-10-24 21:07 | XR ---
EXAMINATION TYPE: XR knee complete LT DATE OF EXAM: 10/24/2023 7:39 PM CLINICAL INDICATION:Female, 58 years old with history of pain; pain, swelling and medial side, no kno wn injury COMPARISON: None. TECHNIQUE: XR knee complete LT; examined in Frontal, lateral and oblique projections. FINDINGS: Osseous mineralization appears appropriate. No evidence of destructive lesion or aggressive periostit is. No acute fracture or dislocation. Joint spaces appear maintained. Soft tissue fullness suggesting small suprapatellar joint effusion. No radiopaque foreign body seen. IMPRESSION: 1. No acute fracture or dislocation. 2. Small suprapatellar effusion.
== END 2023-10-24 21:38 | disposition home or self-care (01) ==
LOC: EC 18:53
DX: M25.462 Effusion, left knee (principal); Z88.0 Allergy status to penicillin; Z88.1 Allergy status to other antibiotic agents; Z88.2 Allergy status to sulfonamides; Z88.5 Allergy status to narcotic agent; Z88.8 Allergy status to other drugs, medicaments and biological substances
CPT/HCPCS: 73562; 99283; 96372; J1885

== ENCOUNTER → 2024-04-03 | Outpatient (CLI) | payer OTHER ==
--- NOTE | 2024-04-03 18:53 | XR ---
EXAMINATION TYPE: XR abdomen 1V DATE OF EXAM: 04/03/2024 COMPARISON: 04/05/2022 INDICATION: Abdomen pain x2 months TECHNIQUE: Single view abdomen upright view FINDINGS: There is a normal bowel gas pattern. Air is under the right diaphragm. Correlate for Chilaiditi's syn drome. Psoas margins are normal. No organomegaly is present. Surgical clips are within the right medial abdomen and pelvis. There appears to be mesh within the mi dline. IMPRESSION: 1. No discrete abnormality. Correlate for Chilaiditi's syndrome.
== END | disposition home or self-care (01) ==
LOC: RADXRMAIN 16:50
PROVIDERS: ATTEND Family Medicine
DX: R10.9 Unspecified abdominal pain (principal)
CPT/HCPCS: 74018

== ENCOUNTER 2024-05-09 08:37 | Day surgery (SDC) | payer OTHER ==
[2024-05-07 11:14] VITALS: BMI 26.4
[~2024-05-09 08:37] MED LIST changes: +LIDOCAINE 1% (10MG/ML) FOR IV START INTRADERMA PRN; -LIDOCAINE 1% 20 ML VIAL (10MG/ML) FOR IV START INTRADERMA PRN
[2024-05-09 09:29] VITALS: RESP 16; TEMP 97.4
[2024-05-09] MEDS: IV FLUID CONTINUATION 1,000 ML IV ONE (09:33)
[2024-05-09] MEDS ORDERED: PROPOFOL 10 MG/ML 20 ML VIAL IV ONE (10:18)
[2024-05-09] MEDS ORDERED: LIDOCAINE 1% INJ 10MG/ML (20 ML MDV) ONE (10:18)
--- NOTE | 2024-05-09 10:22 | P.GSHP ---
History of Present Illness H&P Date: 05/09/24 Chief Complaint: Gerd, GI bleed This is a 58-year-old female presents today for EGD and colonoscopy patient is issues with GERD and GI bleed. Past Medical History Past Medical History: GERD/Reflux, Osteoarthritis (OA) Additional Past Medical History / Comment(s): . History of Any Multi-Drug Resistant Organisms: None Reported Past Surgical History: Appendectomy, Cholecystectomy, Hysterectomy, Joint Replacement, Orthopedic Surgery Additional Past Surgical History / Comment(s): TOTAL LT SHOULDER, Shoulder surg. bilat., Knee surg. bilat., ANKLE SURGERY, EGD , COLONOSCOPY Past Anesthesia/Blood Transfusion Reactions: No Reported Reaction, Motion Sickness Past Psychological History: Anxiety, Depression Smoking Status: Never smoker Past Alcohol Use History: None Reported Past Drug Use History: None Reported - Past Family History Mother Family Medical History: No Reported History Medications and Allergies Home Medications Medication Instructions Recorded Confirmed Type Escitalopram [Lexapro] 20 mg PO DAILY 04/12/14 05/09/24 History Omeprazole [PriLOSEC] 20 mg PO BID 02/03/15 05/09/24 History Cetirizine HCl [Zyrtec] 10 mg PO HS 09/27/21 05/09/24 History Ibuprofen [Motrin] 600 mg PO Q8HR PRN #30 tab 03/03/23 05/09/24 Rx Melatonin [Melatonin ER] 10 mg PO HS 05/09/24 05/09/24 History Allergies Allergy/AdvReac Type Severity Reaction Status Date / Time acetaminophen [From Vicodin] Allergy Swelling Verified 05/09/24 09:28 amoxicillin Allergy Swelling Verified 05/09/24 09:28 clonazepam [From Klonopin] Allergy Swelling Verified 05/09/24 09:28 codeine Allergy Rash/Hives Verified 05/09/24 09:28 hydrocodone Allergy Anaphylaxis Verified 05/09/24 09:28 imipramine Allergy Rash/Hives Verified 05/09/24 09:28 morphine Allergy Swelling Verified 05/09/24 09:28 niacin Allergy Swelling Verified 05/09/24 09:28 ondansetron [From Zofran] Allergy Itching Verified 05/09/24 09:28 Penicillins Allergy Anaphylaxis Verified 05/09/24 09:28 sulfamethoxazole Allergy Swelling Verified 05/09/24 09:28 [From Bactrim] tramadol Allergy Itching Verified 05/09/24 09:28 trimethoprim [From Bactrim] Allergy Swelling Verified 05/09/24 09:28 Surgical - Exam Vital Signs Temp Pulse Resp BP Pulse Ox 97.4 F L 71 16 111/53 96 05/09/24 09:22 05/09/24 09:22 05/09/24 09:22 05/09/24 09:22 05/09/24 09:22 - General well developed, well nourished, no distress - Eyes PERRL - ENT normal pinna - Neck no masses - Respiratory normal expansion - Cardiovascular Rhythm: regular - Abdomen Abdomen: soft, non tender Assessment and Plan Assessment: Gerd, GI bleed. Perform EGD and colonoscopy.
--- NOTE | 2024-05-09 10:43 | P.OP ---
Date of Procedure: 05/09/24 Preoperative Diagnosis: Gerd GI bleed Postoperative Diagnosis: Antral gastritis Internal hemorrhoids Procedure(s) Performed: Colonoscopy Anesthesia: MAC Surgeon: Duong Kumari Pathology: other (anrrum) Condition: stable Disposition: PACU Description of Procedure: The patient was placed on the endoscopy table in the lateral position. She received IV sedation. The gas was placed oropharynx passed in the esophagus to the stomach. Scope was in place through the pylorus. The first and second portion of the duodenum appeared normal. The scope was then brought back to the antrum this appeared mildly inflamed. A biopsy was performed. The scope was retroflexed Arabella stomach appeared normal. The GE junction was at 40 cm. The distal esophagus appeared normal. The proximal esophagus appeared well. Scope withdrawn for patient. Next digital rectal exam was performed. There was some minimal internal hemorrhoids. The flex colonoscope was then placed patient anus passed through to the right colon. Patient a poor colon prep. The right colon was poorly visualized secondary to poor prep. There is a large amount of liquid stool in the right colon. The transverse colon, descending colon and sigmoid colon appeared normal. Scope was brought back to the rectum this appeared no. Scope withdrawn through the anus and internal hemorrhoids were noted. Scope withdrawn for the patient.
[2024-05-09 11:00] VITALS: BP 103/55; PULSE 61
== END 2024-05-09 11:19 | disposition home or self-care (01) ==
LOC: ORWHC2ENDO 08:37
PROVIDERS: ATTEND Surgery
DX: K92.2 Gastrointestinal hemorrhage, unspecified (principal); K21.9 Gastro-esophageal reflux disease without esophagitis; K64.8 Other hemorrhoids; Z88.0 Allergy status to penicillin; Z88.1 Allergy status to other antibiotic agents; Z88.8 Allergy status to other drugs, medicaments and biological substances
CPT/HCPCS: 43239; 45378; 88305

== ENCOUNTER 2024-08-01 16:17 | Emergency (ER) | payer OTHER ==
[2024-08-01 16:27] VITALS: RESP 18
--- NOTE | 2024-08-01 17:19 | ED ---
Animal Bite HPI - General Chief Complaint: Animal Bite Stated Complaint: R hand dog bite Time Seen by Provider: 08/01/24 16:30 Source: patient, RN notes reviewed Mode of arrival: ambulatory Limitations: no limitations - History of Present Illness Initial Comments: 59-year-old female presenting with dog bite to left hand 4 hours ago. States this was her bluing oven tender's arce retriever dog who she believes is up-to-date on vaccinations. Reports 2 small puncture wounds to dorsal left hand. Last tetanus within the year. No other injuries. - Related Data Home Medications Medication Instructions Recorded Confirmed Escitalopram [Lexapro] 20 mg PO DAILY 04/12/14 05/09/24 Omeprazole [PriLOSEC] 20 mg PO BID 02/03/15 05/09/24 Cetirizine HCl [Zyrtec] 10 mg PO HS 09/27/21 05/09/24 Melatonin [Melatonin Tr] 10 mg PO HS 05/09/24 05/09/24 Previous Rx's Medication Instructions Recorded Ibuprofen [Motrin] 600 mg PO Q8HR PRN #30 tab 03/03/23 Doxycycline [Vibramycin] 100 mg PO BID 7 Days #14 capsule 08/01/24 metroNIDAZOLE [Flagyl] 500 mg PO TID 7 Days #21 tab 08/01/24 Allergies Allergy/AdvReac Type Severity Reaction Status Date / Time acetaminophen [From Vicodin] Allergy Swelling Verified 08/01/24 16:23 amoxicillin Allergy Swelling Verified 08/01/24 16:23 clonazepam [From Klonopin] Allergy Swelling Verified 08/01/24 16:23 codeine Allergy Rash/Hives Verified 08/01/24 16:23 hydrocodone Allergy Anaphylaxis Verified 08/01/24 16:23 imipramine Allergy Rash/Hives Verified 08/01/24 16:23 morphine Allergy Swelling Verified 08/01/24 16:23 niacin Allergy Swelling Verified 08/01/24 16:23 ondansetron [From Zofran] Allergy Itching Verified 08/01/24 16:23 Penicillins Allergy Anaphylaxis Verified 08/01/24 16:23 sulfamethoxazole Allergy Swelling Verified 08/01/24 16:23 [From Bactrim] tramadol Allergy Itching Verified 08/01/24 16:23 trimethoprim [From Bactrim] Allergy Swelling Verified 08/01/24 16:23 Review of Systems ROS Statement: Those systems with pertinent positive or pertinent negative responses have been documented in the HPI. ROS Other: All systems not noted in ROS Statement are negative. Past Medical History Past Medical History: GERD/Reflux, Osteoarthritis (OA) Additional Past Medical History / Comment(s): . History of Any Multi-Drug Resistant Organisms: None Reported Past Surgical History: Appendectomy, Cholecystectomy, Hysterectomy, Joint Replacement, Orthopedic Surgery Additional Past Surgical History / Comment(s): TOTAL LT SHOULDER, Shoulder surg. bilat., Knee surg. bilat., ANKLE SURGERY, EGD , COLONOSCOPY Past Anesthesia/Blood Transfusion Reactions: No Reported Reaction, Motion Sickness Past Psychological History: Anxiety, Depression Smoking Status: Never smoker Past Alcohol Use History: None Reported Past Drug Use History: None Reported - Past Family History Mother Family Medical History: No Reported History General Exam Limitations: no limitations General appearance: alert, in no apparent distress Left Forearm Wrist exam: Present: normal inspection, full ROM. Absent: tenderness, swelling Hand Wrist exam: Present: full ROM. Absent: normal inspection (To mild puncture wounds dorsal left hand, no active bleeding), tenderness, swelling, abrasion, laceration, deformity, dislocation Vascular: Present: normal capillary refill, radial pulse. Absent: vascular compromise Neurological exam: Present: alert, oriented X3 Psychiatric exam: Present: normal affect, normal mood Skin exam: Present: warm, dry, intact, normal color. Absent: rash Course Vital Signs 08/01/24 08/01/24 16:23 17:40 Temperature 97.5 F L 97.8 F Pulse Rate 64 65 Respiratory 18 18 Rate Blood Pressure 95/53 105/68 O2 Sat by Pulse 99 99 Oximetry Medical Decision Making - Medical Decision Making Was pt. sent in by a medical professional or institution (, PA, [employer], urgent care, hospital, or retirement...) When possible be specific @ -No Did you speak to anyone other than the patient for history (EMS, parent, family, police, friend...)? What history was obtained from this source @ -No Did you review nursing and triage notes (agree or disagree)? Why? @ -I reviewed and agree with nursing and triage notes Were old charts reviewed (outside hosp., previous admission, EMS record, old EKG, old radiological studies, urgent care reports/EKG's, retirement records)? Report findings @ -No old charts were reviewed Differential Diagnosis (chest pain, altered mental status, abdominal pain women, abdominal pain men, vaginal bleeding, weakness, fever, dyspnea, syncope, headache, dizziness, GI bleed, back pain, seizure, CVA, palpatations, mental health, musculoskeletal)? @ -Differential Musculoskeletal Dog bite, muscular strain, contusion, ligament sprain, fracture, arthritis, septic arthritis, bursitis, cellulitis, muscle spasm, nerve compression, DVT, arterial occlusion, herpes zoster, electrolyte abnormality, tumor.... This is not meant to be in all inclusive list EKG interpreted by me (3pts min.). @ -None X-rays interpreted by me (1pt min.). @ -None done CT interpreted by me (1pt min.). @ -None done U/S interpreted by me (1pt. min.). @ -None done What testing was considered but not performed or refused? (CT, X-rays, U/S, labs)? Why? @ -None What meds were considered but not given or refused? Why? @ -None Did you discuss the management of the patient with other professionals (professionals i.e. , PA, [employer], lab, RT, psych nurse, long term care social worker, pipe jeeper, teacher, strike operations officer, welfare case worker)? Give summary @ -No Was smoking cessation discussed for >3mins.? @ -No Was critical care preformed (if so, how long)? @ -No Were there social determinants of health that impacted care today? How? (Homelessness, low income, unemployed, alcoholism, drug addiction, transportation, low edu. Level, literacy, decrease access to med. care, [facility]ci, rehab)? @ -No Was there de-escalation of care discussed even if they declined (Discuss DNR or withdrawal of care, Hospice)? DNR status @ -No What co-morbidities impacted this encounter? (DM, HTN, Smoking, COPD, CAD, Cancer, CVA, ARF, Chemo, Hep., AIDS, mental health diagnosis, sleep apnea, morbid obesity)? @ -None Was patient admitted / discharged? Hospital course, mention meds given and route, prescriptions, significant lab abnormalities, going to OR and other pertinent info. @ -Discharge. 59-year-old female with dog bite to left hand 4 hours ago. There are 2 minor puncture wounds to dorsal left hand with no active bleeding. Patient neurovascularly intact and has full range of motion. Tetanus is up-to-date. Patient was prescribed metronidazole and doxycycline as patient states she has an allergy to penicillin and Bactrim. Appropriate return precautions and follow-up care discussed. Patient is agreeable to plan. Case was discussed with my ED attending Dr. Mora Undiagnosed new problem with uncertain prognosis? @ -No Drug Therapy requiring intensive monitoring for toxicity (Heparin, Nitro, Insulin, Cardizem)? @ -No Were any procedures done? @ -No Diagnosis/symptom? @ -Dog bite left hand Acute, or Chronic, or Acute on Chronic? @ -Acute Uncomplicated (without systemic symptoms) or Complicated (systemic symptoms)? @ -Uncomplicated Side effects of treatment? @ -No Exacerbation, Progression, or Severe Exacerbation? @ -No Poses a threat to life or bodily function? How? (Chest pain, [place], [place], pneumonia, PE, COPD, DKA, ARF, appy, cholecystitis, CVA, Diverticulitis, Homicidal, Suicidal, threat to staff... and all critical care pts) @ -No Disposition Clinical Impression: Dog bite of right hand Disposition: HOME SELF-CARE Condition: Stable Instructions (If sedation given, give patient instructions): Animal Bite (ED) Additional Instructions: Take Flagyl and doxycycline as prescribed. Please return to the Emergency Department if symptoms worsen or any other concerns. Prescriptions: metroNIDAZOLE [Flagyl] 500 mg PO TID 7 Days #21 tab Doxycycline [Vibramycin] 100 mg PO BID 7 Days #14 capsule Is patient prescribed a controlled substance at d/c from ED?: No Referrals: Brandt Moore DO [Primary Care Provider] - 1-2 days Time of Disposition: 17:18
[2024-08-01] MEDS: metroNIDAZOLE 500 MG TAB PO STA (17:32)
[2024-08-01] MEDS: DOXYCYCLINE 100 MG CAP PO STA (17:32)
[2024-08-01 17:41] VITALS: BP 105/68; PULSE 65; TEMP 97.8
== END 2024-08-01 17:42 | disposition home or self-care (01) ==
LOC: EC 16:17
DX: S61.451A Open bite of right hand, initial encounter (principal); Z88.6 Allergy status to analgesic agent; Z88.5 Allergy status to narcotic agent; Z88.1 Allergy status to other antibiotic agents; Z88.0 Allergy status to penicillin; Z88.2 Allergy status to sulfonamides; Z88.8 Allergy status to other drugs, medicaments and biological substances
CPT/HCPCS: 99283

== ENCOUNTER 2024-08-08 14:33 | Emergency (ER) | payer OTHER ==
--- NOTE | 2024-08-08 14:55 | ED ---
General Adult HPI - General Source: patient, RN notes reviewed Mode of arrival: ambulatory Limitations: no limitations <Temitope Randolph - Last Filed: 08/08/24 14:53> <Santiago Cho - Last Filed: 08/08/24 16:00> - General Stated complaint: L sided pain Time Seen by Provider: 08/08/24 14:50 - History of Present Illness Initial comments: Angella notethis is a 59-year-old female presenting to the emergency department chief complaint of left-sided rib pain that occurred yesterday. Patient states that she accidentally threw a piece of mail when she was leaning on a metal chair of the left side of her chest and has experienced pain in this area since. States the pain is worse with movement, inspiration, and on palpation. She denies chest pain, shortness of breath, heart palpitations or difficulty breathing. Patient was evaluated earlier in the day by her primary care provider as instructed report to emergency department symptoms worsen. (Temitope Randolph) Dictation was produced using [employer] dictation software. please excuse any grammatical, word or spelling errors. Chief Complaint: 59-year-old female presents with left rib pain History of Present Illness: Patient is 59-year-old female presents to the emergency department with 1 day of left rib pain. Patient states that she was leaning over a dumpster trying to retrieve some mail she excellently threw into the dumpster. She was leaning over a metal bar with her ribs when all of a sudden after she did mail out she started to have some pain. Patient states that it is a sharp pain worse when she presses the area. No history of cardiac disease. Denies any associated diaphoresis or nausea. Denies any substernal chest pressure. The ROS documented in this emergency department record has been reviewed and confirmed by me. Those systems with pertinent positive or negative responses have been documented in the HPI. All other systems are other negative and/or noncontributory. (Santiago Cho) - Related Data Home Medications Medication Instructions Recorded Confirmed Escitalopram [Lexapro] 20 mg PO DAILY 04/12/14 05/09/24 Omeprazole [PriLOSEC] 20 mg PO BID 02/03/15 05/09/24 Cetirizine HCl [Zyrtec] 10 mg PO HS 09/27/21 05/09/24 Melatonin [Melatonin Tr] 10 mg PO HS 05/09/24 05/09/24 Previous Rx's Medication Instructions Recorded Ibuprofen [Motrin] 600 mg PO Q8HR PRN #30 tab 03/03/23 Doxycycline [Vibramycin] 100 mg PO BID 7 Days #14 capsule 08/01/24 metroNIDAZOLE [Flagyl] 500 mg PO TID 7 Days #21 tab 08/01/24 Allergies Allergy/AdvReac Type Severity Reaction Status Date / Time acetaminophen [From Vicodin] Allergy Swelling Verified 08/08/24 14:52 amoxicillin Allergy Swelling Verified 08/08/24 14:52 clonazepam [From Klonopin] Allergy Swelling Verified 08/08/24 14:52 codeine Allergy Rash/Hives Verified 08/08/24 14:52 hydrocodone Allergy Anaphylaxis Verified 08/08/24 14:52 imipramine Allergy Rash/Hives Verified 08/08/24 14:52 morphine Allergy Swelling Verified 08/08/24 14:52 niacin Allergy Swelling Verified 08/08/24 14:52 ondansetron [From Zofran] Allergy Itching Verified 08/08/24 14:52 Penicillins Allergy Anaphylaxis Verified 08/08/24 14:52 sulfamethoxazole Allergy Swelling Verified 08/08/24 14:52 [From Bactrim] tramadol Allergy Itching Verified 08/08/24 14:52 trimethoprim [From Bactrim] Allergy Swelling Verified 08/08/24 14:52 Review of Systems ROS Other: All systems not noted in ROS Statement are negative. <Temitope Randolph - Last Filed: 08/08/24 14:53> ROS Other: All systems not noted in ROS Statement are negative. <Santiago Cho - Last Filed: 08/08/24 16:00> ROS Statement: Those systems with pertinent positive or pertinent negative responses have been documented in the HPI. Past Medical History Past Medical History: GERD/Reflux, Osteoarthritis (OA) Additional Past Medical History / Comment(s): . History of Any Multi-Drug Resistant Organisms: None Reported Past Surgical History: Appendectomy, Cholecystectomy, Hysterectomy, Joint Replacement, Orthopedic Surgery Additional Past Surgical History / Comment(s): TOTAL LT SHOULDER, Shoulder surg. bilat., Knee surg. bilat., ANKLE SURGERY, EGD , COLONOSCOPY Past Anesthesia/Blood Transfusion Reactions: No Reported Reaction, Motion Sickness Past Psychological History: Anxiety, Depression Smoking Status: Never smoker Past Alcohol Use History: None Reported Past Drug Use History: None Reported - Past Family History Mother Family Medical History: No Reported History <Temitope Randolph - Last Filed: 08/08/24 14:53> General Exam Limitations: no limitations <Temitope Randolph - Last Filed: 08/08/24 14:53> <Santiago Cho - Last Filed: 08/08/24 16:00> - General Exam Comments Initial Comments: Visual Physical Exam Vital signs reviewed General: Well-appearing, nontoxic, no acute distress. Head: Normocephalic, atraumatic Eyes: PERRLA, EOMI ENT: Airway patent Chest: Nonlabored breathing Skin: No visual rash, normal skin tone Neuro: Alert and oriented 3 Musculoskeletal: No gross abnormalities (Temitope Randolph) PHYSICAL EXAM: General Impression: Alert and oriented x3, not in acute distress HEENT: Normocephalic atraumatic, extra-ocular movements intact, pupils equal and reactive to light bilaterally, mucous membranes moist. Cardiovascular: Heart regular rate and rhythm Chest: Able to complete full sentences, no retractions, no tachypnea, exquisite palpatory tenderness over the lower left anterior ribs following the anterior axillary line Abdomen: abdomen soft, non-tender, non-distended, no organomegaly Musculoskeletal: Pulses present and equal in all extremities, no peripheral edema Motor: no focal deficits noted Neurological: CN II-XII grossly intact, no focal motor or sensory deficits noted Skin: Intact with no visualized rashes Psych: Normal affect and mood (Santiago Cho) Course Vital Signs 08/08/24 14:52 Temperature 97.3 F L Pulse Rate 67 Respiratory 16 Rate Blood Pressure 108/63 O2 Sat by Pulse 100 Oximetry Medical Decision Making <Temitope Randolph - Last Filed: 08/08/24 14:53> <Santiago Cho - Last Filed: 08/08/24 16:00> - Medical Decision Making I completed the quick note portion of this chart signed Temitope Randolph PA-C (Temitope Randolph) Was pt. sent in by a medical professional or institution (Dr., PA, SUPPLY CHAIN BUYER, urgent care, hospital, or penitentiary...) When possible be specific @ -No Did you speak to anyone other than the patient for history (EMS, parent, family, police, friend...)? What history was obtained from this source @ -No Did you review nursing and triage notes (agree or disagree)? Why? @ -I reviewed and agree with nursing and triage notes Were old charts reviewed (outside hosp., previous admission, EMS record, old EKG, old radiological studies, urgent care reports/EKG's, penitentiary records)? Report findings @ -No old charts were reviewed Differential Diagnosis (chest pain, altered mental status, abdominal pain women, abdominal pain men, vaginal bleeding, musculoskeletal, weakness, fever, dyspnea, syncope, headache, dizziness, GI bleed, back pain, seizure, CVA, palpatations, mental health)? @ -Differential Chest Pain: Stable Angina, Unstable Angina, STEMI, NSTEMI Aortic Dissection, Pneumothorax, Musculoskeletal, Esophageal Spasm GERD, Cholecystitis, Pancreatitis, Zoster, this is not meant to be an all-inclusive list. EKG interpreted by me (3pts min.). @ -None done X-rays interpreted by me (1pt min.). @ -An AP left rib x-ray shows no occult fractures CT interpreted by me (1pt min.). @ -None done U/S interpreted by me (1pt. min.). @ -None done What testing was considered but not performed or refused? (CT, X-rays, U/S, labs)? Why? @ -None What meds were considered but not given or refused? Why? @ -None Was smoking cessation discussed for >3mins.? @ -No Were there social determinants of health that impacted care today? How? (Homelessness, low income, unemployed, alcoholism, drug addiction, transportation, low edu. Level, literacy, decrease access to med. care, skilled nursing, rehab)? @ -No Was there de-escalation of care discussed even if they declined (Discuss DNR or withdrawal of care, Hospice)? DNR status @ -No What co-morbidities impacted this encounter? (DM, HTN, Smoking, COPD, CAD, Cancer, CVA, ARF, Chemo, Hep., AIDS, mental health diagnosis, sleep apnea, morbid obesity)? @ -None Was patient admitted / discharged? Hospital course, mention meds given and route, prescriptions, significant lab abnormalities, going to OR and other pertinent info. @ -59-year-old female presents to the emergency department with clinical presentation consistent with left rib contusion. Vital signs stable. Patient does not have any ACS symptoms. She has reproducible rib tenderness with palpation. Patient given lidocaine patch. Plain films did not show any acute processes. Patient discharged advised follow-up with primary care doctor. Did you discuss the management of the patient with other professionals (professionals i.e. , PA, SUPPLY CHAIN BUYER, lab, RT, psych nurse, social worker clinical, chair, teacher, tax revenue officer, case management social worker)? Give summary @ -No Was critical care preformed (if so, how long)? @ -No Undiagnosed new problem with uncertain prognosis? @ -No Drug Therapy requiring intensive monitoring for toxicity (Heparin, Nitro, Insulin, Cardizem)? @ -No Were any procedures done? @ -No Diagnosis/symptom? Acute, or Chronic, or Acute on Chronic? Uncomplicated (without systemic symptoms) or Complicated (systemic symptoms)? @ -Rib contusion Side effects of treatment? @ -No Exacerbation, Progression, or Severe Exacerbation? @ -No Poses a threat to life or bodily function? How? (Chest pain, [place], [place], pneumonia, PE, COPD, DKA, ARF, appy, cholecystitis, CVA, Diverticulitis, Homicidal, Suicidal, threat to staff... and all critical care pts) @ -No (Santiago Cho) Disposition <Temitope Randolph - Last Filed: 08/08/24 14:53> Is patient prescribed a controlled substance at d/c from ED?: No Time of Disposition: 16:00 <Santiago Cho - Last Filed: 08/08/24 16:00> Clinical Impression: Rib contusion Disposition: HOME SELF-CARE Instructions (If sedation given, give patient instructions): Rib Contusion (ED) Referrals: Brandt Moore DO [Primary Care Provider] - 1-2 days
[2024-08-08] MEDS: LIDOCAINE 4% PATCH TOPICAL ONE (16:08)
[2024-08-08 16:11] VITALS: BP 111/68; PULSE 70; RESP 18; TEMP 98
--- NOTE | 2024-08-08 16:11 | XR ---
EXAMINATION TYPE: XR ribs LT w pa chest xray DATE OF EXAM: 08/08/2024 3:43 PM COMPARISON: 09/27/2021 CLINICAL INDICATION: Female, 59 years old with history of pain; PHH, pain TECHNIQUE: XR ribs LT w pa chest xray; Frontal and oblique views of the ribs with frontal chest radio graph. FINDINGS: Left rib 5 cortical irregularity as well as left rib 7 seen on one view only. The remainder of the ribs have a normal appearance. No evidence of fracture. Overall, the lungs are clear. The c ardiac silhouette is normal in size. The remaining osseous structures are intact. Left shoulder fixation arthroplasty and right humerus fixation hardware are intact. IMPRESSION: Single view shows possible left rib 5 and 7 fractures, correlate with pain. [facility], , 08/08/2024 4:08 PM
== END 2024-08-08 16:13 | disposition home or self-care (01) ==
LOC: EC 14:33
DX: S20.219A Contusion of unspecified front wall of thorax, initial encounter (principal); Z88.0 Allergy status to penicillin; Z88.1 Allergy status to other antibiotic agents; Z88.2 Allergy status to sulfonamides; Z88.5 Allergy status to narcotic agent; Z88.6 Allergy status to analgesic agent; Z88.8 Allergy status to other drugs, medicaments and biological substances; X58.XXXA Exposure to other specified factors, initial encounter
CPT/HCPCS: 99283

== ENCOUNTER → 2024-08-21 | Outpatient (CLI) | payer OTHER ==
--- NOTE | 2024-08-21 09:36 | XR ---
EXAMINATION TYPE: XR ribs LT DATE OF EXAM: 08/21/2024 9:19 AM COMPARISON: 08/08/2024 CLINICAL INDICATION: Female, 59 years old with history of S22.32XA Left rib fx; , pain TECHNIQUE: XR ribs LT; Frontal and oblique views of the ribs with frontal chest radiograph. FINDINGS: The ribs have a normal appearance. No evidence of fracture. Overall, the lungs are clear. The cardiac silhouette is normal in size. The remaining osseous structures are intact. Left shoulde r arthroplasty appears intact. IMPRESSION: No acute osseous pathology. [facility], , 08/21/2024 9:34 AM
== END | disposition home or self-care (01) ==
LOC: RADXRMAIN 09:02
PROVIDERS: ATTEND Family Medicine
DX: S22.32XA Fracture of one rib, left side, initial encounter for closed fracture (principal)

== ENCOUNTER 2024-10-09 20:36 | Emergency (ER) | payer OTHER ==
--- NOTE | 2024-10-09 21:01 | XR ---
EXAMINATION TYPE: XR chest 2V DATE OF EXAM: 10/09/2024 8:57 PM COMPARISON: Chest radiographs from 08/21/2024 CLINICAL INDICATION: Female, 59 years old with history of cough; [facility] TECHNIQUE: XR chest 2V Frontal and lateral views of the chest. FINDINGS: Lungs/Pleura: There is no evidence of pleural effusion, focal consolidation, or pneumothorax. Pulmonary vascularity: Unremarkable. Heart/mediastinum: Cardiomediastinal silhouette is unremarkable. Musculoskeletal: No acute osseous pathology. Fixation changes of the right humerus and arthroplasty c hanges of the left. Other findings: None IMPRESSION: No acute cardiopulmonary disease/process. [facility], , 10/09/2024 8:59 PM
[2024-10-09 21:58] LABS: Influenza A Not Detected (Not Detectd); Influenza B Not Detected (Not Detectd); RSV Not Detected (Not Detectd)
--- NOTE | 2024-10-09 22:14 | ED ---
URI HPI - General Chief Complaint: Upper Respiratory Infection Stated Complaint: Cough,chills Time Seen by Provider: 10/09/24 20:40 Source: patient, RN notes reviewed Mode of arrival: ambulatory Limitations: no limitations - History of Present Illness Initial Comments: 59-year-old female presents emergency department with chief complaint of cough congestion throat. She states that she has had a cough for several weeks progressively getting worse. Patient states she had increasing nasal congestion and facial pressure. She denies any prior history of asthma or COPD. She states been around multiple sick contacts. Does complain of chills, possible fever. - Related Data Home Medications Medication Instructions Recorded Confirmed Escitalopram [Lexapro] 20 mg PO DAILY 04/12/14 05/09/24 Omeprazole [PriLOSEC] 20 mg PO BID 02/03/15 05/09/24 Cetirizine HCl [Zyrtec] 10 mg PO HS 09/27/21 05/09/24 Melatonin [Melatonin Tr] 10 mg PO HS 05/09/24 05/09/24 Previous Rx's Medication Instructions Recorded Ibuprofen [Motrin] 600 mg PO Q8HR PRN #30 tab 03/03/23 Doxycycline [Vibramycin] 100 mg PO BID 7 Days #14 capsule 08/01/24 metroNIDAZOLE [Flagyl] 500 mg PO TID 7 Days #21 tab 08/01/24 Azithromycin [Zithromax Z Pack] 0 tab PO DIRECTED #6 tab 10/09/24 Allergies Allergy/AdvReac Type Severity Reaction Status Date / Time acetaminophen [From Vicodin] Allergy Swelling Verified 10/09/24 20:43 amoxicillin Allergy Swelling Verified 10/09/24 20:43 clonazepam [From Klonopin] Allergy Swelling Verified 10/09/24 20:43 codeine Allergy Rash/Hives Verified 10/09/24 20:43 hydrocodone Allergy Anaphylaxis Verified 10/09/24 20:43 imipramine Allergy Rash/Hives Verified 10/09/24 20:43 morphine Allergy Swelling Verified 10/09/24 20:43 niacin Allergy Swelling Verified 10/09/24 20:43 ondansetron [From Zofran] Allergy Itching Verified 10/09/24 20:43 Penicillins Allergy Anaphylaxis Verified 10/09/24 20:43 sulfamethoxazole Allergy Swelling Verified 10/09/24 20:43 [From Bactrim] tramadol Allergy Itching Verified 10/09/24 20:43 trimethoprim [From Bactrim] Allergy Swelling Verified 10/09/24 20:43 Review of Systems ROS Statement: Those systems with pertinent positive or pertinent negative responses have been documented in the HPI. ROS Other: All systems not noted in ROS Statement are negative. Past Medical History Past Medical History: GERD/Reflux, Osteoarthritis (OA) Additional Past Medical History / Comment(s): . History of Any Multi-Drug Resistant Organisms: None Reported Past Surgical History: Appendectomy, Cholecystectomy, Hysterectomy, Joint Replacement, Orthopedic Surgery Additional Past Surgical History / Comment(s): TOTAL LT SHOULDER, Shoulder surg. bilat., Knee surg. bilat., ANKLE SURGERY, EGD , COLONOSCOPY Past Anesthesia/Blood Transfusion Reactions: No Reported Reaction, Motion Sickness Past Psychological History: Anxiety, Depression Smoking Status: Never smoker Past Alcohol Use History: None Reported Past Drug Use History: None Reported - Past Family History Mother Family Medical History: No Reported History General Exam Limitations: no limitations General appearance: alert, in no apparent distress Head exam: Present: atraumatic, normocephalic, normal inspection Eye exam: Present: normal appearance, PERRL, EOMI. Absent: scleral icterus, conjunctival injection, periorbital swelling ENT exam: Present: normal exam, normal oropharynx, mucous membranes moist Neck exam: Present: normal inspection, full ROM. Absent: tenderness, meningismus, lymphadenopathy Respiratory exam: Present: normal lung sounds bilaterally, rhonchi. Absent: respiratory distress, wheezes, rales, stridor Cardiovascular Exam: Present: regular rate, normal rhythm, normal heart sounds. Absent: systolic murmur, diastolic murmur, rubs, gallop, clicks Course Vital Signs 10/09/24 20:40 Temperature 97.9 F Pulse Rate 75 Respiratory 18 Rate Blood Pressure 121/63 O2 Sat by Pulse 97 Oximetry Medical Decision Making - Medical Decision Making Was pt. sent in by a medical professional or institution (, PA, CONTROL TECHNICIAN, urgent care, hospital, or fdc...) When possible be specific @ -No Did you speak to anyone other than the patient for history (EMS, parent, family, police, friend...)? What history was obtained from this source @ -No Did you review nursing and triage notes (agree or disagree)? Why? @ -I reviewed and agree with nursing and triage notes Were old charts reviewed (outside hosp., previous admission, EMS record, old EKG, old radiological studies, urgent care reports/EKG's, fdc records)? Report findings @ -No old charts were reviewed Differential Diagnosis (chest pain, altered mental status, abdominal pain women, abdominal pain men, vaginal bleeding, weakness, fever, dyspnea, syncope, headache, dizziness, GI bleed, back pain, seizure, CVA, palpatations, mental health, musculoskeletal)? @ -COVID 19, RSV, influenza, pneumonia, acute bronchitis, URI, this list is not all inclusive EKG interpreted by me (3pts min.). @ -None X-rays interpreted by me (1pt min.). @ -Chest x-ray shows no acute cardiopulmonary process. CT interpreted by me (1pt min.). @ -None done U/S interpreted by me (1pt. min.). @ -None done What testing was considered but not performed or refused? (CT, X-rays, U/S, labs)? Why? @ -None What meds were considered but not given or refused? Why? @ -None Did you discuss the management of the patient with other professionals (professionals i.e. , PA, CONTROL TECHNICIAN, lab, RT, psych nurse, bilingual social worker, casino cashier, teacher, assistant chief nursing officer, bilingual case manager)? Give summary @ -No Was smoking cessation discussed for >3mins.? @ -No Was critical care preformed (if so, how long)? @ -No Were there social determinants of health that impacted care today? How? (Homelessness, low income, unemployed, alcoholism, drug addiction, transportation, low edu. Level, literacy, decrease access to med. care, usp, rehab)? @ -No Was there de-escalation of care discussed even if they declined (Discuss DNR or withdrawal of care, Hospice)? DNR status @ -No What co-morbidities impacted this encounter? (DM, HTN, Smoking, COPD, CAD, Cancer, CVA, ARF, Chemo, Hep., AIDS, mental health diagnosis, sleep apnea, morbid obesity)? @ -None Was patient admitted / discharged? Hospital course, mention meds given and route, prescriptions, significant lab abnormalities, going to OR and other pertinent info. @ -[Discharge patient has acute tracheobronchitis. Patient discharged on azithromycin as she has multiple allergies. Patient will follow-up PCP return parens discussed. Undiagnosed new problem with uncertain prognosis? @ -No Drug Therapy requiring intensive monitoring for toxicity (Heparin, Nitro, Insulin, Cardizem)? @ -No Were any procedures done? @ -No Diagnosis/symptom? @ -Acute tracheobronchitis Acute, or Chronic, or Acute on Chronic? @ -Acute Uncomplicated (without systemic symptoms) or Complicated (systemic symptoms)? @ -Uncomplicated Side effects of treatment? @ -No Exacerbation, Progression, or Severe Exacerbation? @ -No Poses a threat to life or bodily function? How? (Chest pain, [place], [place], pneumonia, PE, COPD, DKA, ARF, appy, cholecystitis, CVA, Diverticulitis, Homicidal, Suicidal, threat to staff... and all critical care pts) @ -No - Lab Data Lab Results 10/09/24 10/09/24 Range/Units 20:40 20:40 Influenza Type A (PCR) Not Detected (Not Detectd) Influenza Type B (PCR) Not Detected (Not Detectd) RSV (PCR) Not Detected (Not Detectd) SARS-CoV-2 (PCR) Not Detected (Not Detectd) Group A Strep (PCR) NOT DETECTED (Not Detectd) Disposition Clinical Impression: Acute tracheobronchitis Disposition: HOME SELF-CARE Condition: Stable Instructions (If sedation given, give patient instructions): Upper Respiratory Infection (ED) Additional Instructions: Please return to the Emergency Department if symptoms worsen or any other concerns. Prescriptions: Azithromycin [Zithromax Z Pack] 0 tab PO DIRECTED #6 tab Is patient prescribed a controlled substance at d/c from ED?: No Referrals: Brandt Moore DO [Primary Care Provider] - 1-2 days Time of Disposition: 22:13
[2024-10-09] MEDS: AZITHROMYCIN 500 MG TAB PO STA (22:38)
[2024-10-09 22:42] VITALS: BP 116/66; PULSE 71; RESP 16; TEMP 98.3
== END 2024-10-09 22:42 | disposition home or self-care (01) ==
LOC: EC 20:36
DX: J20.9 Acute bronchitis, unspecified (principal)
CPT/HCPCS: 71046; 87636; 87651; 99283

== ENCOUNTER → 2024-11-01 | Outpatient (CLI) | payer OTHER ==
--- NOTE | 2024-11-01 08:39 | CT ---
EXAMINATION TYPE: CT sinus wo con CT DLP: 800 mGycm, Automated exposure control for dose reduction was used. DATE OF EXAM: 11/01/2024 8:31 AM COMPARISON: CT brain C-spine 09/27/2021, 08/24/2019, 06/21/2013. CLINICAL INDICATION:Female, 59 years old with history of J32.9 CHRONIC SINUSITIS; PHH, Chronic sinusi tis CONTRAST: None. TECHNIQUE: Multiple thin axial images were obtained through the paranasal sinuses without the use of IV contrast. Additional coronal and sagittal reformatted images were submitted for evaluation. FINDINGS: Dental amalgam creates streak artifact which limits evaluation. Frontal sinuses: Normally developed. The right frontal sinus is well aerated. Mild mucosal thickening in the left frontal sinus. Frontal Recess: Clear Maxillary Sinuses: Normally developed and mild mucosal thickening of the inferior left maxillary sinu s is suspected 1.7 cm mucous retention cyst. Mild mucosal thickening of the right maxillary sinus wit h air-fluid level. No hyperostosis identified of the garcia. Maxillary Infundibula([facility]): The left is clear. Partial opacification the right maxillary infundibulum , no Santos cell. Ethmoid sinuses: Normally developed and aerated. Ethmoidal notch: Protected and abutting the lateral lamina. Sphenoid sinuses: Normally developed and aerated. There is partial sellar sphenoid sinus pneumatizati on without evidence of dehiscence. No dehiscence of carotid canal. No evidence of optic nerve dehisc ence within the sphenoid sinus. No evidence of Onodi cells. Sphenoethmoidal recesses: Clear. Nasal septum: Minimally deviated to the right.. Nasal Turbinates: Within normal limits. Mastoid air cells & middle ears: The air cells are clear. The middle ears are grossly unremarkable. Modified Soft tissues & Brain: Partially seen without gross abnormality. Globes are intact. Other: Cribriform plate demonstrates symmetric Keros classification type 3 cribriform plate. No evidence of bony dehiscence of skull base. Lamina papyracea is intact without evidence of remote orbital fracture or orbital prolapse into the e thmoid sinus. IMPRESSION: 1. Air-fluid level within the right maxillary sinus. Correlate for acute sinusitis. 2. Mild mucosal thickening of the left frontal and left maxillary sinuses with suspected inferior lef t maxillary sinus mucous retention cyst. 3. The left ostiomeatal unit, frontonasal and sphenoethmoidal recesses are clear. Partial opacificati on of the right ostiomeatal infundibulum. No Santos cells. [facility], , 11/01/2024 8:37 AM
== END | disposition home or self-care (01) ==
LOC: RADCTMAIN 08:05
PROVIDERS: ATTEND Otolaryngology Facial Plastic Surgery
DX: J32.9 Chronic sinusitis, unspecified (principal); J34.89 Other specified disorders of nose and nasal sinuses; J34.2 Deviated nasal septum
CPT/HCPCS: 70486

== ENCOUNTER 2024-12-01 17:39 | Emergency (ER) | payer MEDICARE, OTHER ==
--- NOTE | 2024-12-01 19:20 | ED ---
General Adult HPI - General Chief complaint: Extremity Problem,Nontraumatic Stated complaint: bilateral shoulder pain Time Seen by Provider: 12/01/24 18:59 Source: patient, RN notes reviewed Mode of arrival: ambulatory Limitations: no limitations - History of Present Illness Initial comments: Patient is a pleasant 59-year-old female present to the emergency department with concern with bilateral shoulder discomfort. Patient does have chronic shoulder problems. Patient did have total joint replacement left shoulder around 12 years ago. Patient has been having some increased discomfort confined to the left shoulder over the past 6+ months. No weakness. No neck problems. No loss of sensation. Patient also has history of rotator cuff surgery on the right shoulder. Patient was sleeping on this last night with sudden discomfort that has continued since this time. Discomfort is also contained to the right shoulder. Discomfort increases with movement of both. - Related Data Home Medications Medication Instructions Recorded Confirmed Escitalopram [Lexapro] 20 mg PO DAILY 04/12/14 05/09/24 Omeprazole [PriLOSEC] 20 mg PO BID 02/03/15 05/09/24 Cetirizine HCl [Zyrtec] 10 mg PO HS 09/27/21 05/09/24 Melatonin [Melatonin Tr] 10 mg PO HS 05/09/24 05/09/24 Previous Rx's Medication Instructions Recorded Ibuprofen [Motrin] 600 mg PO Q8HR PRN #30 tab 03/03/23 Doxycycline [Vibramycin] 100 mg PO BID 7 Days #14 capsule 08/01/24 metroNIDAZOLE [Flagyl] 500 mg PO TID 7 Days #21 tab 08/01/24 Azithromycin [Zithromax Z Pack] 0 tab PO DIRECTED #6 tab 10/09/24 Cyclobenzaprine [Flexeril] 10 mg PO TID PRN #12 tablet 12/01/24 Allergies Allergy/AdvReac Type Severity Reaction Status Date / Time acetaminophen [From Vicodin] Allergy Swelling Verified 12/01/24 17:59 amoxicillin Allergy Swelling Verified 12/01/24 17:59 clonazepam [From Klonopin] Allergy Swelling Verified 12/01/24 17:59 codeine Allergy Rash/Hives Verified 12/01/24 17:59 hydrocodone Allergy Anaphylaxis Verified 12/01/24 17:59 imipramine Allergy Rash/Hives Verified 12/01/24 17:59 morphine Allergy Swelling Verified 12/01/24 17:59 niacin Allergy Swelling Verified 12/01/24 17:59 ondansetron [From Zofran] Allergy Itching Verified 12/01/24 17:59 Penicillins Allergy Anaphylaxis Verified 12/01/24 17:59 sulfamethoxazole Allergy Swelling Verified 12/01/24 17:59 [From Bactrim] tramadol Allergy Itching Verified 12/01/24 17:59 trimethoprim [From Bactrim] Allergy Swelling Verified 12/01/24 17:59 Review of Systems ROS Statement: Those systems with pertinent positive or pertinent negative responses have been documented in the HPI. ROS Other: All systems not noted in ROS Statement are negative. Constitutional: Denies: fever Eyes: Denies: eye pain ENT: Denies: ear pain Respiratory: Denies: cough, dyspnea Cardiovascular: Denies: chest pain Gastrointestinal: Denies: abdominal pain Musculoskeletal: Reports: as per HPI. Denies: back pain Past Medical History Past Medical History: GERD/Reflux, Osteoarthritis (OA) Additional Past Medical History / Comment(s): . History of Any Multi-Drug Resistant Organisms: None Reported Past Surgical History: Appendectomy, Cholecystectomy, Hysterectomy, Joint Replacement, Orthopedic Surgery Additional Past Surgical History / Comment(s): TOTAL LT SHOULDER, Shoulder surg. bilat., Knee surg. bilat., ANKLE SURGERY, EGD , COLONOSCOPY Past Anesthesia/Blood Transfusion Reactions: No Reported Reaction, Motion Sickness Past Psychological History: Anxiety, Depression Smoking Status: Never smoker Past Alcohol Use History: None Reported Past Drug Use History: None Reported - Past Family History Mother Family Medical History: No Reported History General Exam Limitations: no limitations General appearance: alert, in no apparent distress Head exam: Present: normocephalic Eye exam: Present: normal appearance Neck exam: Present: normal inspection. Absent: tenderness Respiratory exam: Present: normal lung sounds bilaterally Cardiovascular Exam: Present: regular rate, normal rhythm Expanded Peripheral pulses: 2+: Radial (R), Radial (L) GI/Abdominal exam: Present: soft. Absent: tenderness Extremities exam: Present: tenderness (Mild tenderness right lateral shoulder, pinpoint. Minimal tenderness left shoulder diffusely both extremities are neurovascularly intact distally.) Neurological exam: Present: alert. Absent: motor sensory deficit Psychiatric exam: Present: normal affect, normal mood Skin exam: Present: normal color Course Vital Signs 12/01/24 17:55 Temperature 98.1 F Pulse Rate 74 Respiratory 17 Rate Blood Pressure 101/51 O2 Sat by Pulse 98 Oximetry Medical Decision Making - Medical Decision Making Was pt. sent in by a medical professional or institution (, [facility], CFO, urgent care, hospital, or fci...) When possible be specific @ -No Did you speak to anyone other than the patient for history (EMS, parent, family, police, friend...)? What history was obtained from this source @ -No Did you review nursing and triage notes (agree or disagree)? Why? @ -I reviewed and agree with nursing and triage notes Were old charts reviewed (outside hosp., previous admission, EMS record, old EKG, old radiological studies, urgent care reports/EKG's, fci records)? Report findings @ -No old charts were reviewed Differential Diagnosis (chest pain, altered mental status, abdominal pain women, abdominal pain men, vaginal bleeding, weakness, fever, dyspnea, syncope, headache, dizziness, GI bleed, back pain, seizure, CVA, palpatations, mental health, musculoskeletal)? @ -Differential Musculoskeletal Muscular strain, contusion, ligament sprain, fracture, arthritis, septic arthritis, bursitis, cellulitis, muscle spasm, nerve compression, DVT, arterial occlusion, herpes zoster, electrolyte abnormality, tumor.... This is not meant to be in all inclusive list EKG interpreted by me (3pts min.). @ -As above X-rays interpreted by me (1pt min.). @ -Bilateral shoulder x-rays show postoperative changes CT interpreted by me (1pt min.). @ -None done U/S interpreted by me (1pt. min.). @ -None done What testing was considered but not performed or refused? (CT, X-rays, U/S, labs)? Why? @ -None What meds were considered but not given or refused? Why? @ -None Did you discuss the management of the patient with other professionals (professionals i.e. , [facility]EL, CFO, lab, RT, psych nurse, director of social media marketing, partner alliance manager, teacher, bsa/aml compliance officer, case assembler)? Give summary @ -No Was smoking cessation discussed for >3mins.? @ -No Was critical care preformed (if so, how long)? @ -No Were there social determinants of health that impacted care today? How? (Homelessness, low income, unemployed, alcoholism, drug addiction, transportation, low edu. Level, literacy, decrease access to med. care, usp, rehab)? @ -No Was there de-escalation of care discussed even if they declined (Discuss DNR or withdrawal of care, Hospice)? DNR status @ -No What co-morbidities impacted this encounter? (DM, HTN, Smoking, COPD, CAD, Cancer, CVA, ARF, Chemo, Hep., AIDS, mental health diagnosis, sleep apnea, morbid obesity)? @ -Chronic shoulder problems, previous surgery Was patient admitted / discharged? Hospital course, mention meds given and route, prescriptions, significant lab abnormalities, going to OR and other pertinent info. @ -Patient presents with shoulder pain. Patient states usually she gets a shot of Toradol when she comes here. Patient did want x-rays. Patient updated on results and plan. Undiagnosed new problem with uncertain prognosis? @ -No Drug Therapy requiring intensive monitoring for toxicity (Heparin, Nitro, Insulin, Cardizem)? @ -No Were any procedures done? @ -No Diagnosis/symptom? @ -Shoulder pain Acute, or Chronic, or Acute on Chronic? @ -Acute Uncomplicated (without systemic symptoms) or Complicated (systemic symptoms)? @ -Default Side effects of treatment? @ -No Exacerbation, Progression, or Severe Exacerbation? @ -No Poses a threat to life or bodily function? How? (Chest pain, [place], [place], pneumonia, PE, COPD, DKA, ARF, appy, cholecystitis, CVA, Diverticulitis, Homicidal, Suicidal, threat to staff... and all critical care pts) @ -No Disposition Clinical Impression: Shoulder pain Disposition: HOME SELF-CARE Condition: Stable Instructions (If sedation given, give patient instructions): Shoulder Pain (ED) Additional Instructions: Please do follow-up with your orthopedic doctor in the next couple of days for recheck. Return for increased pain, weakness, swelling, fever, worsening symptoms or other concerns. Prescription for muscle laxer's has been sent to your pharmacy Prescriptions: Cyclobenzaprine [Flexeril] 10 mg PO TID PRN #12 tablet PRN Reason: Pain Is patient prescribed a controlled substance at d/c from ED?: No Referrals: Woodrow Larry, [Primary Care Provider] - 1-2 days Time of Disposition: 20:07
--- NOTE | 2024-12-01 19:46 | XR ---
EXAMINATION TYPE: XR shoulder complete BILAT DATE OF EXAM: 12/01/2024 7:33 PM COMPARISON: None CLINICAL INDICATION: Female, 59 years old with history of pain; PHH, pain TECHNIQUE: XR shoulder complete BILAT; examined in AP, internally rotated and scapular Y projections. FINDINGS: Left shoulder arthroplasty and right shoulder internal fixation hardware both appear intact . No evidence for fracture. No evidence for hardware failure. Visualized portion of the chest are jonathan ssly unremarkable. IMPRESSION: 1. No acute osseous pathology. 2. Left shoulder arthroplasty and right shoulder fixation hardware intact. No evidence for acute fra cture. [facility], , 12/01/2024 7:44 PM
[2024-12-01] MEDS: KETOROLAC 15 MG/ML 1 ML VIAL IM STA (20:28)
[2024-12-01 20:57] VITALS: BP 120/72; PULSE 58; RESP 16; TEMP 97.6
== END 2024-12-01 20:31 | disposition home or self-care (01) ==
LOC: EC 17:39
DX: M25.512 Pain in left shoulder (principal); M25.511 Pain in right shoulder; Z98.890 Other specified postprocedural states; Z88.1 Allergy status to other antibiotic agents; Z88.0 Allergy status to penicillin; Z88.5 Allergy status to narcotic agent; Z88.2 Allergy status to sulfonamides; Z88.8 Allergy status to other drugs, medicaments and biological substances; Z88.6 Allergy status to analgesic agent
CPT/HCPCS: 73030; 99283; 96372; J1885